=== PATIENT | female | born 1955 | race Caucasian/White ===

== ENCOUNTER 2017-09-29 16:58 | Observation (INO) | payer MEDICARE ==
[~2017-09-29] VITALS: Ht 157.5 cm; Wt 80.3 kg
[~2017-09-29 16:58] MED LIST: ALIGN4 MG PO; ARAVA20 MG PO; ASPIR 8181 MG PO; CEFDINIR300 MG PO; CEFTIN500 MG PO; DOXYCYCLINE HY100 MG PO; FLUCONAZOLE100 MG PO; HYDROCODONE AP PO; IBUPROFEN400 MG PO; MEDROL4 MG/DOSE- PO; NORCO 7.5-3251 EACH PO; ONDANSETRON ODT8 MG PO; PANTOPRAZOLE SO40 MG PO; PLAQUENIL200 MG PO; PROTONIX40 MG/ML PO; TAMIFLU75 MG PO; ULTRAM 50MG50 MG PO; ULTRAM50 MG PO; XANAX0.5 MG PO; XIIDRA OU; Z.0.ZIPSOR25 MG PO; [UNRECOGNIZED DRUG - OTHER] OU; movantik PO
[2017-09-29 17:58] LABS: BASOPHILS % 0.4 % (0.0-1.0); EOSINOPHILS # (AUTO) 0.4 (0.0-0.4); EOSINOPHILS % 4.9 % (0.0-6.0); HEMATOCRIT 38.5 % (34.2-44.1); HEMOGLOBIN 12.9 g/dL (12.0-16.0); LYMPHOCYTES # (AUTO) 3.5 (1.0-3.2); LYMPHOCYTES % 38.9 % (18.0-39.1); MEAN CORPUSCULAR HEMOGLOBIN 29.5 pg (28-32); MEAN CORPUSCULAR HGB CONC 33.5 g/dL (31-35); MEAN CORPUSCULAR VOLUME 87.9 fL (81-99); MONOCYTES # (AUTO) 0.7 (0.2-0.8); MONOCYTES % 7.6 % (4.4-11.3); NEUTROPHILS # (AUTO) 4.3 (2.1-6.9); PLATELET COUNT 301 x10e3/uL (140-360); RED BLOOD COUNT 4.38 x10e6/uL (3.6-5.1); RED CELL DISTRIBUTION WIDTH 12.4 % (11.7-14.4)
--- NOTE | 2017-09-29 18:02 | Diagnostic Imaging Report ---
EXAMINATION: Chest, CHEST 2 VIEWS INDICATION: Chest pain COMPARISON: Portable chest 07/12/2016 FINDINGS: LINES: None. Heart: Normal cardiac silhouette. Vascular: The pulmonary vasculature is within normal limits. Mediastinum: No mediastinal, hilar, or axillary mass or lymphadenopathy. Lungs: No parenchymal mass. Airspace opacity in the left lung base. Pleura: No pleural effusion. No pneumothorax. Bones: No acute osseous abnormality. Degenerative changes of the thoracic spine. Anterior cervical spine fusion hardware. Soft tissues: Normal. Impression: Airspace opacity in the left lung base may represent a developing pneumonia. Signed by: Dr. Stoney Asif M.D. on 09/29/2017 5:58 PM
[2017-09-29 18:16] LABS: ANION GAP 11.4 mmol/L (8-16); BLOOD UREA NITROGEN 8 mg/dL (7-26); BUN/CREATININE RATIO 10 (6-25); CARBON DIOXIDE 27 mmol/L (22-29); CHLORIDE 105 mmol/L (98-107); CREATINE KINASE 130 IU/L (29-168); CREATININE, SERUM 0.79 mg/dL (0.57-1.11); EST GLOMERULAR FILTRATION RATE > 60 ML/MIN (60-); GLUCOSE 113 mg/dL (74-118); POTASSIUM 3.4 mmol/L (3.5-5.1); SODIUM 140 mmol/L (136-145)
[2017-09-29 18:23] LABS: TROPONIN I 0.002 ng/mL (0-0.300)
[2017-09-29] MEDS ORDERED: AZITHROMYCIN 500MG/SOD CHL 0.9% 250ML BAG IV SCH (18:30)
[2017-09-29] MEDS ORDERED: SODIUM CHLORIDE 0.9% 1000ML 1,000 ML ONE (18:44)
[2017-09-29] MEDS: WATER STERILE 10 ML VIAL INJ SCH (19:09)
[2017-09-29] MEDS: AZITHROMYCIN 500MG/NS 250 ML 250 ML IV SCH (19:09)
[2017-09-29] MEDS: SODIUM CHLORIDE 0.9% 1000ML 1,000 ML IV SCH (19:09)
[2017-09-29] MEDS: CEFTRIAXONE SOD 1 GM VIAL IV SCH (19:09)
[2017-09-29] MEDS: LEVALBUTEROL HCL SOLN NEBU 0.63 MG/3 ML NEB INH PRN (19:30)
[2017-09-29] MEDS: IPRATROPIUM BROMIDE 0.02% 2.5 ML NEB NEB SCH (19:30)
[2017-09-29] MEDS ORDERED: LEVALBUTEROL HCL SOLN NEBU 0.63 MG/3 ML NEB ONE (19:47)
[2017-09-29] MEDS ORDERED: ONDANSETRON HCL INJ 2 MG/ML VIAL ONE (20:16)
[2017-09-29] MEDS: ALBUTEROL SULF 0.083% NEB SOLN 3 ML NEB NEB SCH ×2 (20:32→23:00)
[2017-09-29 22:00] VITALS: BP 137/70
[2017-09-29 22:34] VITALS: BP 137/74
[2017-09-30] VITALS: BP 120/59
[2017-09-30] MEDS: LEVALBUTEROL HCL SOLN NEBU 0.63 MG/3 ML NEB INH PRN ×4 (01:30→21:00)
[2017-09-30] MEDS: IPRATROPIUM BROMIDE 0.02% 2.5 ML NEB NEB SCH ×4 (01:30→21:00)
[2017-09-30] MEDS: MORPHINE SULFATE 2 MG/ML SYR IV PRN ×4 (02:30→21:30)
[2017-09-30] MEDS: ALBUTEROL SULF 0.083% NEB SOLN 3 ML NEB NEB SCH ×3 (03:00→07:00)
[2017-09-30 04:00] VITALS: BP 148/70
[2017-09-30] MEDS: SODIUM CHLORIDE 0.9% 1000ML 1,000 ML IV SCH ×2 (06:15→15:19)
[2017-09-30] MEDS ORDERED: ALPRAZOLAM 0.5 MG TAB PO PRN (07:00)
[2017-09-30] MEDS ORDERED: ONDANSETRON 8 MG PO PRN (07:00)
[2017-09-30] MEDS ORDERED: TRAMADOL HCL 50 MG TAB PO PRN (07:00)
[2017-09-30] MEDS ORDERED: IBUPROFEN 400 MG TAB PO PRN (07:00)
--- NOTE | 2017-09-30 07:13 | History and Physical ---
A 62-year-old lady comes in with cough and congestion. HISTORY OF PRESENT ILLNESS: Ms. Lucina Barrett is a 62-year-old lady with a history of being seen by her primary care physician about 2 days ago, Dr. Mooney. The patient was noted to have coughing and congestion, and was given antibiotics and albuterol. The patient has been sent home with cough medication. Did not get her cough medication because it was not available in stock. The patient yesterday came in with cough and congestion continuous and was short of breath. Chest x-ray showed pneumonia. The patient was admitted to the hospital for cough, congestion and pneumonia. PAST MEDICAL HISTORY: History of reflux disorder, history of anxiety, history of hypertension. SURGICAL HISTORY: Hysterectomy, cholecystectomy and laminectomy. The patient also had a fractured right hand, rotator cuff tear, which was repaired. The patient also has a history of Ramsay's esophagus as per endoscopy, and history of asthma too. SOCIAL HISTORY: No ETOH. No drug abuse. REVIEW OF SYSTEMS: Negative for chest pain. Positive for shortness of breath. No nausea, vomiting or diarrhea. No constipation or rectal bleeding. Positive for back pain. Positive for no diplopia. No blurry vision. Positive for headache. No coughing. PHYSICAL EXAMINATION GENERAL: The patient is alert and oriented times 3. Sitting up and coughing as she speaks. VITALS: Temperature 98.6, pulse 95, respiratory rate 20, blood pressure 148/70. She is satting about 94% on 2 L of oxygen. HEENT: Normocephalic and atraumatic. CV: Regular rate and rhythm. LUNGS: Diffuse air entry bilaterally. Positive for bilateral rhonchi and some inspiratory wheezes too. ABDOMEN: Soft and nontender. EXTREMITIES: No clubbing. No cyanosis. No edema. BACK: Tender in the L4-L5 area. IMAGING STUDIES: Chest x-ray showed airspace opacity in the left lung base. MICROBIOLOGY: Pending blood cultures. LAB VALUES: Influenza was negative. Hematology: White count is 8.9, hemoglobin 12.9, hematocrit 38.5. Chemistry: Sodium 140, potassium 3.4. As mentioned, influenza was negative. ASSESSMENT 1. Developing pneumonia. 2. Chronic cough and congestion. 3. Bronchospasms. 4. History of asthma. 5. History of low back pain. PLAN: Continue on the antibiotics. Currently, the patient is on Xopenex every 6 hours, azithromycin and Rocephin. The patient will continue on her home medications also. Do a chest x-ray in the morning. Further recommendations per clinical course. Will also start the patient on some . Job#: [id number]
[2017-09-30 07:42] VITALS: BP 144/63
[2017-09-30] MEDS ORDERED: IBUPROFEN 600 MG TAB PO PRN (07:45)
[2017-09-30] MEDS ORDERED: ONDANSETRON HCL 4 MG ORAL DISINTEGRATING TAB PO PRN (07:45)
[2017-09-30] MEDS: POLYETHYLENE GLYCOL 3350 17 GM PACK PO SCH ×2 (08:41→16:26)
[2017-09-30] MEDS: XIIDRA OP SCH ×2 (08:41→16:26)
[2017-09-30] MEDS: LACTOBACILLUS ACIDOPHILUS CAPSULE PO SCH ×2 (08:41→16:26)
[2017-09-30] MEDS: PANTOPRAZOLE SOD 40 MG TABEC PO SCH (08:41)
[2017-09-30] MEDS: GUAIFENESIN/CODEINE 10 ML CUP PO PRN ×2 (08:43→15:27)
[2017-09-30] MEDS ORDERED: XIIDRA OU SCH (09:00)
[2017-09-30 11:29] VITALS: BP 119/61
[2017-09-30 15:21] VITALS: BP 123/71
[2017-09-30] MEDS: CEFTRIAXONE SOD 1 GM VIAL IV SCH (19:00)
[2017-09-30] MEDS: WATER STERILE 10 ML VIAL INJ SCH (19:00)
[2017-09-30] MEDS: AZITHROMYCIN 500MG/NS 250 ML 250 ML IV SCH (19:00)
[2017-09-30 20:00] VITALS: BP 123/58
[2017-10-01] VITALS: BP 126/62
[2017-10-01] MEDS: LEVALBUTEROL HCL SOLN NEBU 0.63 MG/3 ML NEB INH PRN ×4 (02:00→20:25)
[2017-10-01] MEDS: IPRATROPIUM BROMIDE 0.02% 2.5 ML NEB NEB SCH ×4 (02:00→20:25)
[2017-10-01] MEDS: MORPHINE SULFATE 2 MG/ML SYR IV PRN ×4 (03:24→21:29)
[2017-10-01 04:00] VITALS: BP 131/61
[2017-10-01 06:03] LABS: BASOPHILS % 0.4 % (0.0-1.0); EOSINOPHILS # (AUTO) 0.4 (0.0-0.4); HEMATOCRIT 35.1 % (34.2-44.1); HEMOGLOBIN 11.7 g/dL (12.0-16.0); LYMPHOCYTES % 42.8 % (18.0-39.1); MEAN CORPUSCULAR HEMOGLOBIN 29.5 pg (28-32); MEAN CORPUSCULAR HGB CONC 33.3 g/dL (31-35); MEAN CORPUSCULAR VOLUME 88.6 fL (81-99); MONOCYTES # (AUTO) 0.6 (0.2-0.8); MONOCYTES % 9.1 % (4.4-11.3); NEUTROPHILS % 42.4 % (38.7-80.0); PLATELET COUNT 248 x10e3/uL (140-360); RED BLOOD COUNT 3.96 x10e6/uL (3.6-5.1); RED CELL DISTRIBUTION WIDTH 12.5 % (11.7-14.4)
[2017-10-01 06:33] LABS: ANION GAP 8.1 mmol/L (8-16); BLOOD UREA NITROGEN 8 mg/dL (7-26); BUN/CREATININE RATIO 10 (6-25); CARBON DIOXIDE 27 mmol/L (22-29); CHLORIDE 110 mmol/L (98-107); CREATININE, SERUM 0.79 mg/dL (0.57-1.11); EST GLOMERULAR FILTRATION RATE > 60 ML/MIN (60-); GLUCOSE 101 mg/dL (74-118); POTASSIUM 4.1 mmol/L (3.5-5.1); SODIUM 141 mmol/L (136-145)
--- NOTE | 2017-10-01 07:03 | Diagnostic Imaging Report ---
EXAM: CHEST 2 VIEWS, PA and lateral DATE: 10/01/2017 6:50 AM Time stamp on exam: 0602 hours INDICATION: Shortness of breath, cough, congestion COMPARISON: PA and lateral view of the chest September 29, 2017 FINDINGS: LINES/TUBES: None LUNGS: Stable bibasilar atelectasis and bronchial thickening. PLEURA: No effusions or pneumothorax. HEART AND MEDIASTINUM: Normal size and contour. BONES AND SOFT TISSUES: No acute findings. Lower cervical spine surgical hardware. IMPRESSION: No interval change. Signed by: Dr. Yulia Fitzgerald M.D. on 10/01/2017 7:00 AM
[2017-10-01] MEDS: LACTOBACILLUS ACIDOPHILUS CAPSULE PO SCH ×2 (08:10→18:00)
[2017-10-01] MEDS: PANTOPRAZOLE SOD 40 MG TABEC PO SCH (08:10)
[2017-10-01 08:19] VITALS: BP 134/68
[2017-10-01] MEDS: XIIDRA OP SCH ×2 (08:44→17:00)
[2017-10-01] MEDS: POLYETHYLENE GLYCOL 3350 17 GM PACK PO SCH ×2 (09:00→16:37)
[2017-10-01 12:17] VITALS: BP 137/65
[2017-10-01] MEDS: GUAIFENESIN/CODEINE 10 ML CUP PO PRN ×2 (14:44→21:29)
[2017-10-01] MEDS: SODIUM CHLORIDE 0.9% 1000ML 1,000 ML IV SCH (15:44)
[2017-10-01 16:50] VITALS: BP 171/79
[2017-10-01] MEDS: CEFTRIAXONE SOD 1 GM VIAL IV SCH (18:00)
[2017-10-01] MEDS: WATER STERILE 10 ML VIAL INJ SCH (18:00)
[2017-10-01] MEDS ORDERED: LACTULOSE SYRUP 20 GM/30 ML UDC PO PRN (18:15)
[2017-10-01] MEDS: AZITHROMYCIN 500MG/NS 250 ML 250 ML IV SCH (18:30)
[2017-10-01 19:47] VITALS: BP 140/77
[2017-10-01] MEDS: ONDANSETRON HCL 4 MG ORAL DISINTEGRATING TAB PO PRN (21:29)
[2017-10-02] MEDS: IPRATROPIUM BROMIDE 0.02% 2.5 ML NEB NEB SCH (03:50)
[2017-10-02] MEDS: MORPHINE SULFATE 2 MG/ML SYR IV PRN (04:45)
[2017-10-02] MEDS: ONDANSETRON HCL 4 MG ORAL DISINTEGRATING TAB PO PRN (04:45)
[2017-10-02 04:48] VITALS: BP 126/70
[2017-10-02 08:30] VITALS: BP 135/88
[2017-10-02] MEDS: XIIDRA OP SCH (09:00)
[2017-10-02] MEDS: LACTOBACILLUS ACIDOPHILUS CAPSULE PO SCH (09:04)
[2017-10-02] MEDS: PANTOPRAZOLE SOD 40 MG TABEC PO SCH (09:04)
== END 2017-10-02 11:30 | disposition home or self-care (01) ==
LOC: ER 16:58 → ERHOLD 18:43 → IMCU 21:16
PROVIDERS: ADMIT Family Medicine; ATTEND Family Medicine
DX: J15.9 Unspecified bacterial pneumonia (principal); J98.01 Acute bronchospasm; F41.9 Anxiety disorder, unspecified
CPT/HCPCS: 36415 ×2; 71020 ×2; 80048 ×2; 82550; 82553; 84484; 85025 ×2; 87040; 87070; 87205; 87400; 96367; 96376; 99284; G0378 ×4; J0456 ×3; J0696 ×3; J2270 ×3; J2405; J7030 ×3

== ENCOUNTER → 2017-11-05 | Outpatient (CLI) | payer MEDICARE ==
--- NOTE | 2017-11-05 15:45 | Diagnostic Imaging Report ---
PROCEDURE: CT CHEST WITHOUT CONTRAST CT scan of the chest WITHOUT intravenous contrast, using standard protocol. TECHNIQUE: The chest was scanned utilizing a multidetector helical scanner from the apex to the level of the adrenal glands. No IV contrast was administered per physician request. Coronal and sagittal multiplanar reformations were obtained. Total DLP: 453.86 mGy-cm COMPARISON: Chest CT 11/05/2017. INDICATIONS: COUGH, CHEST PAIN, SHORTNESS OF BREATH FINDINGS: Lines/tubes: None. Lungs and Airways: The lungs are well inflated. Stable calcified granuloma in the posterior right lower lobe (series 3 image 81). Mild mosaic attenuation in the lung bases, which was not previously visualized. Mild atelectasis in the lung bases with mild bronchiectasis in the right middle and lingula Pleura: The pleural spaces are clear. Heart and mediastinum: The thyroid gland is normal. No significant mediastinal, hilar or axillary lymphadenopathy is seen. The heart and pericardium are within normal limits. Mild atherosclerotic calcifications in the coronary arteries. Soft tissues: Normal. Abdomen: Limited views of the upper abdomen show no abnormality within the visualized spleen, pancreas, or kidneys. The adrenal glands are normal. Diffuse hepatic steatosis. Bones: The visualized bony thorax is within normal limits. Anterior cervical fusion. IMPRESSION: Mild mosaic attenuation lung bases, likely air trapping related to small airway disease. Dictated by: Genaro Riddle M.D. on 11/05/2017 at 15:54 Electronically approved by: Genaro Riddle M.D. on 11/05/2017 at 15:54
== END ==
LOC: CT 07:47
PROVIDERS: ATTEND Internal Medicine Pulmonary Disease
DX: R05 Cough (principal)
CPT/HCPCS: 71250

== ENCOUNTER → 2017-11-25 | Outpatient (CLI) | payer MEDICARE ==
[~2017-11-25] MED LIST changes: +IOPAMIDOL 370 MG/ML 200 ML INFUS..BTL INJ ONE; +SODIUM CHLORIDE 0.9% 50ML 50 ML ONE
[2017-11-25 10:55] LABS: BLOOD UREA NITROGEN 16 mg/dL (7-26); BUN/CREATININE RATIO 20 (6-25); EST GLOMERULAR FILTRATION RATE > 60 ML/MIN (60-)
--- NOTE | 2017-11-25 11:59 | Diagnostic Imaging Report ---
PROCEDURE:CT ABDOMEN W COMPARISON:CT chest 11/05/17, CT abdomen/pelvis 05/31/17. INDICATIONS:ACUTE GASTRITIS WITHOUT BLEEDING TECHNIQUE: Multidetector CT scanning of the abdomen was performed after the administration of 100 cc of nonionic contrast. Coronal and sagittal reformations were obtained. Routine protocol performed. FINDINGS: Lung bases: Punctate subpleural nodule in the posterior right lower lobe (image 8) is stable. Visualized portion of the mediastinum is normal. Liver: Diffusely fatty replaced. No evidence of mass. Biliary: The gallbladder is absent. No biliary ductal dilatation. Spleen: Normal size and attenuation without mass. Pancreas: Diffusely fatty replaced. There is a single cyst in the body of the pancreas measuring 10 x 10 x 20 mm (AP, TRV, CC). Previously, this measured approximately 10 x 11 x 20 mm. No pancreas duct dilatation. A punctate calcification in the pancreas tail is stable. There are no new pancreas lesions. Adrenal Glands: No mass. Kidneys: Symmetric enhancement. No mass or hydronephrosis. Gastrointestinal: The stomach is normal in morphology with normal mural enhancement. No mural thickening. Visualized portions of the small bowel and large bowel are normal. Vasculature: Aorta is normal in diameter. Hepatic and portal veins are widely patent. IVC is normal. Peritoneum/Retroperitoneum: No free fluid, fluid collection, or mass. Musculoskeletal: Mild degenerative changes consistent with age. No focal osseous lesions. Soft tissues are unremarkable. CONCLUSION: 1. Stable pancreas cyst or side branch IPMN. Continued annual surveillance is recommended. 2. Stable hepatic steatosis. 3. No abnormalities of the stomach or small bowel on this exam. 4. Cholecystectomy. Normal biliary tree. 5. Stable pulmonary nodule. Dictated by: Jimbo Mary M.D. on 11/25/2017 at 12:09 Electronically approved by: Jimbo Mary M.D. on 11/25/2017 at 12:09
== END ==
LOC: CT 09:58
PROVIDERS: ATTEND Internal Medicine Gastroenterology
DX: K29.00 Acute gastritis without bleeding (principal)
CPT/HCPCS: 36415; 74160; 77067; 82565; 84520; Q9967

== ENCOUNTER 2018-12-10 14:33 | Inpatient (IN) | payer MEDICARE ==
[~2018-12-10] VITALS: Ht 157.5 cm; Wt 77.1 kg
[~2018-12-10 14:33] MED LIST changes: -IOPAMIDOL 370 MG/ML 200 ML INFUS..BTL INJ ONE; -SODIUM CHLORIDE 0.9% 50ML 50 ML ONE
--- OUTSIDE RECORDS SUMMARY | 2018-12-10 14:38 | XMS REPORT ---
Author Author [facility] Address Unknown Phone Unavailable Care Team Providers Care Horse Race Timer Name Role Phone HIPOLITO POOLE Unavailable Unavailable HAI JONES Unavailable Unavailable EDDY SAUNDERS Unavailable Unavailable HAI BOUDREAUX Unavailable Unavailable Pamella HERNANDES Unavailable Unavailable PATTANAIK, TASIA Unavailable Unavailable Problems This patient has no known problems. Allergies, Adverse Reactions, Alerts This patient has no known allergies or adverse reactions. Medications This patient has no known medications. Results Test Description Test Time Test Comments Text Results Atomic Results Result Comments MR, ABDOMEN, WITH 2018-04-21 18:38:00 Referring: Dr. Sapna Hampton FINAL REPORT MRI of the abdomen with and without contrast Reason for study: Abnormal liver enzymes Comparison: CT of the abdomen and pelvis, 11/29/2001 Technique: Multisequence, multiplanar MRI of the abdomen was performed before and after intravenous gadolinium contrast injection. Discussion: The liver is fatty infiltrated. A T2 bright mass is identified in the posterior right liver dome measuring 7 mm. Following contrast injection, there is some peripheral nodular enhancement. On delayed imaging, slightly more enhancement is seen although complete fill-in is not identified. Most likely, this represents its hemangioma given its T2 hyperintensity. No cirrhosis is identified. The portal venous system and hepatic veins are patent and of normal caliber. There is no bile duct dilatation. The gallbladder is absent. The spleen, adrenals, and kidneys are unremarkable. There is no hydronephrosis. A cystic lesion is identified in the pancreatic body/tail junction measuring 1.2 cm. Following contrast injection, no enhancement or complexity is identified. A similar finding is identified in the pancreatic neck which is smaller. The pancreatic duct is not dilated. There is no bowel obstruction. No lymphadenopathy or ascites is seen. The imaged lung bases are grossly unremarkable by MRI. IMPRESSION: 1. Fatty infiltration of the liver. No cirrhosis or suspicious liver mass. 2. Subcentimeter mass in the liver dome which probably represents a hemangioma. However, this is not imaged on the previous examination and short- term follow-up is suggested, given underlying liver disease. 3. 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 Follow-up is suggested for these lesions. Signed: Corby Marr MDReport Verified Date/Time: 04/21/2018 18:38:48 Reading Location: [place] [id number] [facility] Consult Reading Room -CREATININE 2018-04-21 13:37:00 POC-CREATININE (BEAKER) (test abdr=3728) 0.7 mg/dL 0.6-1.3 TESTED AT [facility] [address] [facility] [address] POC-EGFR (BEAKER) (test shja=1098) 84 mL/min/1.73M2 ANTI-NUCLEAR ANTIBODY (DOLORES)2018-04-07 10:55:00* Test Item Value Reference Range Comments ANTI-NUCLEAR ANTIBODY (DOLORES) (BEAKER) (test xlvy=120) Positive Negative DOLORES TITER AND [id number] 10:55:00* Test Item Value Reference Range Comments DOLORES TITER (BEAKER) (test hbtg=5789) :160 DOLORES PATTERN (BEAKER) (test dalx=7173) Nucleolar HEPATITIS A ANTIBODY, [id number] 15:48:00* Test Item Value Reference Range Comments HEPATITIS A IGM ANTIBODY (BEAKER) (test ttko=184) Nonreactive Nonreactive HEPATITIS B CORE ANTIBODY, [id number] 15:48:00* Test Item Value Reference Range Comments HEPATITIS B CORE TOTAL ANTIBODY (BEAKER) (test cgwl=433) Nonreactive Nonreactive HEPATITIS A ANTIBODY, [id number] 15:48:00* Test Item Value Reference Range Comments HEPATITIS A IGG ANTIBODY (BEAKER) (test dkgf=7621) Nonreactive Nonreactive HEPATITIS B SURFACE [id number] 14:20:00* Test Item Value Reference Range Comments HEPATITIS B SURFACE ANTIBODY (BEAKER) (test txse=810) < mIU/mL <8.0 HEPATITIS B SURFACE [id number] 14:10:00* Test Item Value Reference Range Comments HEPATITIS B SURFACE ANTIGEN (2) (BEAKER) (test vlls=1341) Nonreactive Nonreactive HEPATITIS C [id number] 14:10:00* Test Item Value Reference Range Comments HEPATITIS C ANTIBODY (BEAKER) (test iwag=235) Nonreactive Nonreactive [id number] 13:49:00* Test Item Value Reference Range Comments FERRITIN (BEAKER) (test jupa=334) 166 ng/mL 5-275 ALPHA FETOPROTEIN (AFP), TUMOR [id number] 13:49:00* Test Item Value Reference Range Comments ALPHA-FETOPROTEIN (BEAKER) (test xoua=9959) 3.0 ng/mL <10.0 IRON, TIBC, % SAT. (WITHOUT FERRITIN)2018-04-03 13:45:00* Test Item Value Reference Range Comments IRON (BEAKER) (test lipz=180) 124 ug/dL 40-160 TOTAL IRON BINDING CAPACITY (BEAKER) (test ectf=876) 355 ug/dL 250-450 IRON % SATURATION (2) (BEAKER) (test gmws=8897) 35 % 20-55 [id number]-4-[id number] 13:32:00* Test Item Value Reference Range Comments ALPHA-1 ANTITRYPSIN (BEAKER) (test eebr=842) 156.90 mg/dL 90.00-200.00 COMPREHENSIVE METABOLIC [id number] 13:31:00* Test Item Value Reference Range Comments TOTAL PROTEIN (BEAKER) (test klnr=326) 7.8 gm/dL 6.0-8.3 ALBUMIN (BEAKER) (test ldpa=1292) 4.5 g/dL 3.5-5.0 ALKALINE PHOSPHATASE (BEAKER) (test etut=723) 92 U/L 40-150 BILIRUBIN TOTAL (BEAKER) (test exzg=168) 0.8 mg/dL 0.2-1.2 SODIUM (BEAKER) (test tgky=527) 142 meq/L 136-145 POTASSIUM (BEAKER) (test btdw=621) 3.7 meq/L 3.5-5.1 CHLORIDE (BEAKER) (test lhzw=141) 106 meq/L 98-107 CO2 (BEAKER) (test nsad=073) 24 meq/L 22-29 BLOOD UREA NITROGEN (BEAKER) (test tiyn=866) 14 mg/dL 7-21 CREATININE (BEAKER) (test brsf=711) 0.84 mg/dL 0.57-1.25 GLUCOSE RANDOM (BEAKER) (test vtla=777) 118 mg/dL 70-105 CALCIUM (BEAKER) (test srsc=651) 9.9 mg/dL 8.4-10.2 AST (SGOT) (BEAKER) (test ojns=911) 23 U/L 5-34 ALT (SGPT) (BEAKER) (test wxjb=440) 44 U/L 6-55 EGFR (BEAKER) (test jxdt=5715) 68 mL/min/1.73 sq m ESTIMATED GFR IS NOT ACCURATE CREATININE CLEARANCE IN PREDICTING GLOMERULAR FILTRATION RATE. ESTIMATED GFR IS NOT APPLICABLE FOR DIALYSIS PATIENTS. BILIRUBIN, [id number] 13:31:00* Test Item Value Reference Range Comments BILIRUBIN DIRECT (BEAKER) (test xdgv=429) 0.3 mg/dL 0.1-0.5 PROTHROMBIN TIME/[id number] 13:23:00* Test Item Value Reference Range Comments PROTIME (BEAKER) (test lbfl=857) 13.1 seconds 11.7-14.7 INR (BEAKER) (test ghku=288) 1.0 <=5.9 RECOMMENDED COUMADIN/WARFARIN INR THERAPY RANGESSTANDARD DOSE: 2.0 - 3.0 Inclu naldo: PROPHYLAXIS for venous thrombosis, systemic embolization; TREATMENT for alla ous thrombosis and/or pulmonary embolus.HIGH RISK: Target INR is 2.5-3.5 for pat ients with mechanical heart valves.CBC W/PLT COUNT & AUTO [id number] 13:10:00* Test Item Value Reference Range Comments WHITE BLOOD CELL COUNT (BEAKER) (test micw=180) 7.2 K/ L 3.5-10.5 RED BLOOD CELL COUNT (BEAKER) (test kwxa=759) 4.58 M/ L 3.93-5.22 HEMOGLOBIN (BEAKER) (test hbdd=064) 13.8 GM/DL 11.2-15.7 HEMATOCRIT (BEAKER) (test unif=820) 41.7 % 34.1-44.9 MEAN CORPUSCULAR VOLUME (BEAKER) (test wirj=820) 91.0 fL 79.4-94.8 MEAN CORPUSCULAR HEMOGLOBIN (BEAKER) (test ejtg=776) 30.1 pg 25.6-32.2 MEAN CORPUSCULAR HEMOGLOBIN CONC (BEAKER) (test kedn=277) 33.1 GM/DL 32.2-35.5 RED CELL DISTRIBUTION WIDTH (BEAKER) (test ayps=761) 12.4 % 11.7-14.4 PLATELET COUNT (BEAKER) (test vkhg=861) 268 K/CU MM 150-450 MEAN PLATELET VOLUME (BEAKER) (test gpom=449) 9.8 fL 9.4-12.3 NUCLEATED RED BLOOD CELLS (BEAKER) (test dtkn=664) 0 /100 WBC 0-0 NEUTROPHILS RELATIVE PERCENT (BEAKER) (test qxap=992) 58 % LYMPHOCYTES RELATIVE PERCENT (BEAKER) (test ozdi=523) 32 % MONOCYTES RELATIVE PERCENT (BEAKER) (test kfgy=304) 7 % EOSINOPHILS RELATIVE PERCENT (BEAKER) (test xbey=171) 2 % BASOPHILS RELATIVE PERCENT (BEAKER) (test tslf=701) 0 % NEUTROPHILS ABSOLUTE COUNT (BEAKER) (test wuha=399) 4.19 K/ L 1.56-6.13 LYMPHOCYTES ABSOLUTE COUNT (BEAKER) (test nxyp=033) 2.31 K/ L 1.18-3.74 MONOCYTES ABSOLUTE COUNT (BEAKER) (test jmty=825) 0.50 K/ L 0.24-0.36 EOSINOPHILS ABSOLUTE COUNT (BEAKER) (test ndmh=932) 0.14 K/ L 0.04-0.36 BASOPHILS ABSOLUTE COUNT (BEAKER) (test troq=948) 0.02 K/ L 0.01-0.08 IMMATURE GRANULOCYTES-RELATIVE PERCENT (BEAKER) (test fwal=6074) 0 % 0-1 TISSUE [id number] 11:54:00Surgical Pathology Report Case: [id number] Authorizing Provider: Antonio Jones DPM Collected: 03/21/2018 1033 Ordering Location: [facility] Received: 03/21/2018 1134 SERVICES Pathologist: Rocehlle Vela MD Specimen: Foot, Right, soft tissue mass from right great toe SKIN, RIGHT GREAT TOE, EXCISION: - DIGITAL MUCOUS CYST - NEGATIVE FOR MALIGNANCY Signing Pathologist Direct Phone Line: [phone] signed by Rochelle Vela MD on 03/26/2018 at 11:54 [id number] tissue mass right great toeSoft tissue mass right great toeReceived in formalin labeled "foot, right", description "soft tissue mass right great toe" is a 2.5 x 1.0 cm bob ellipse of skin excised to a depth of 0.3 cm. The skin surface exhibits a 0.6 x 0.5 cm well-circumscribed light bob papule. The specimen margins are inked and the specimen is serially sectioned to reveal a 0.7 cm in greatest dimension unilocular subcutaneous cyst containing yellow-bob gelatinous material. The specimen is entirely submitted in cassette A1. DB/plPERFORMEDMAMMOGRAM DIGITAL SCR BI [place] [address] Patient Name: AMBROSE CARBALLO MR #: [id number] : 1955 Age/Sex: 62/F Req #: [id number] Adm Physician: Ordered by: TASIA MACK MD Report #: [id number] Location: CT Room/Bed: Procedure: [id number] MG/MAMMOGRAM DIGITAL SCR BI Exam Date: 11/25/17 Exam Time: 1135 REPORT STA TUS: Signed #[id number] - MGSCRNBI #BILATERAL DIGITAL SCREENING MAMMO GRAM WITH CAD: 11/25/2017 CLINICAL: Routine screening. No prior exams we re available for comparison. Current study contains 5 films. There are scat tered fibroglandular elements in both breasts. Current study was also evalua erika with a Computer Aided Detection (CAD) system. There are benign vascular calcifications in both breasts. There also are benign calcifications in the left breast. No significant masses, calcifications, or other findings are se en in either breast. IMPRESSION: BENIGN There is no mammographic eviden ce of malignancy. A 1 year screening mammogram is recommended. The patient w ill be notified by letter of the results. Leonides toth/yani:12/05/2017 16:44:38 Certified Hearing Instrument Dispenser: Jessie SCHNEIDER(Katarzyna)(M), [facility] letter sent: Normal Exam Mamm ogram BI-RADS: 2 Benign Dictated By: LEONIDES SIMMONS DO 43 Transcribed By: YANI on 12/05/171643 COPY TO: TASIA MACK MD CT ABDOMEN W [place] [address] Patient Name: AMBROSE CARBALLO MR #: [id number] : 1955 Age/Sex: 62/F Req #: [id number] Adm Physician: Ordered by: EDDY SAUNDERS MD Report #: [id number] Location: CT Room/Bed: Procedure: [id number] CT/CT ABDOMEN W Exam Date: 11/25 Exam Time: 1115 REPORT STATUS: Signed [place] OCEDURE: CT ABDOMEN W COMPARISON: CT chest 11/05/17, CT abdomen/pelvis 05/31. INDICATIONS: ACUTE GASTRITIS WITHOUT BLEEDING TECHNIQUE: Multidetect or CT scanning of the abdomen was performed after the administration of 100 c c of nonionic contrast. Coronal and sagittal reformations were obtained. Rout ine protocol performed. FINDINGS: Lung bases: Punctate subpleural nodule in the posterior right lower lobe (image 8) is stable. Visualized portion of the mediastinum is normal. Liver: Diffusely fatty replaced. No evidence of mass. Biliary: The gallbladder is absent. No biliary ductal dilatation. Spleen: Normal size and attenuation without mass. Pancreas: Diff usely fatty replaced. There is a single cyst in the body of the pancreas adriana uring 10 x 10 x 20 mm (AP, TRV, CC). Previously, this measured approximately 10 x 11 x 20 mm. No pancreas duct dilatation. A punctate calcification in the pancreas tail is stable. There are no new pancreas lesions. Adrenal Gl ands: No mass. Kidneys: Symmetric enhancement. No mass or hydronephrosis. Gastrointestinal: The stomach is normal in morphology with normal mural enhancement. No mural thickening. Visualized portions of the small bowel and large bowel are normal. Vasculature: Aorta is normal in diameter. Hepatic and portal veins are widely patent. IVC is normal. Peritoneum/Retrope ritoneum: No free fluid, fluid collection, or mass. Musculoskeletal: Mild degenerative changes consistent with age. No focal osseous lesions. So ft tissues are unremarkable. CONCLUSION: 1. Stable pancreas cyst or side branch IPMN. Continued annual surveillance is recommended. 2. Stable hepatic steatosis. 3. No abnormalities of the stomach or small b owel on this exam. 4. Cholecystectomy. Normal biliary tree. 5. St able pulmonary nodule. Dictated by: Zachary Harley M.D. on 11/25/2017 a t 12:09 Electronically approved by: Zachary Harley M.D. on 11/25/2017 a t 12:09 Dictated By: ZACHARY HARLEY MD Electronically Sign ed By: ZACHARY HARLEY MD on 11/25/17 1209 Transcribed By: KOKO on 11/25/17 1209 COPY TO: EDDY SAUNDERS MD CT CHEST WO [place] [address] Patient Name: AMBROSE CARBALLO MR #: [id number] : 1955 Age/Sex: 62/F Req #: [id number] Adm Physician: Ordered by: HAI BOUDREAUX MD Report #: [id number] Location: CT Room/Bed: Procedure: [id number] CT/CT CHEST WO Exam Date: Exam Time: 0800 REPORT STATUS: Signed PRO CEDURE: CT CHEST WITHOUT CONTRAST CT scan of the chest WITHOUT intravenous con trast, using standard protocol. TECHNIQUE: The chest was scanned util izing a multidetector helical scanner from the apex to the level of the adren al glands. No IV contrast was administered per physician request. Coronal a nd sagittal multiplanar reformations were obtained. Total DLP: 453.86 m Gy-cm COMPARISON: Chest CT 11/05/2017. INDICATIONS: COUGH, CHEST PA IN, SHORTNESS OF BREATH FINDINGS: Lines/tubes: None. Lungs an d Airways: The lungs are well inflated. Stable calcified granuloma in the posterior right lower lobe (series 3 image 81). Mild mosaic attenuation in the lung bases, which was not previously visualized. Mild atelectasis in the lung bases with mild bronchiectasis in the right middle and lingula P leura: The pleural spaces are clear. Heart and mediastinum: The thyroid g land is normal. No significant mediastinal, hilar or axillary lymphadenopathy is seen. The heart and pericardium are within normal limits. Mild atheroscle rotic calcifications in the coronary arteries. Soft tissues: Normal. Abdomen: Limited views of the upper abdomen show no abnormality within the visualized spleen, pancreas, or kidneys. The adrenal glands are normal. Dif fuse hepatic steatosis. Bones: The visualized bony thorax is within lisa l limits. Anterior cervical fusion. IMPRESSION: Mild mosaic atte nuation lung bases, likely air trapping related to small airway disease. Dictated by: Genaro Donohue M.D. on 11/05/2017 at 15:54 Electronically appro rina by: Genaro Donohue M.D. on 11/05/2017 at 15:54 Dictated By: GENARO DONOHUE MD 1160 Transcribed By: KOKO on 11/05/17 6154 COPY TO: HAI BOUDREAUX MD CHEST 2 VIEWS [facility] [address] [place] [id number] Patient Name: AMBROSE CARBALLO MR #: [id number] : 0 1955 Age/Sex: 62/F Req #: [id number] Adm Physician: FRANCISCO HERNANDES MD Ordered by: FRANCISCO HERNANDES MD Report #: [id number] Locat ion: [facility] Room/Bed: [place] [address] Procedure: [id number] D X/CHEST 2 VIEWS Exam Date: Exam Time: REPORT STATUS: Signed EXAM: CHEST 2 VIEWS, PA and lateral DATE: 10/01/2017 6:50 AM Time stamp on exam: 0602 hours INDICATION: Shortness of breath, cough, kush estion COMPARISON: PA and lateral view of the chest September 29, 2017 FIN DINGS: LINES/TUBES: None LUNGS: Stable bibasilar atelectasis and bronchia l thickening. PLEURA: No effusions or pneumothorax. HEART AND MEDIAST INUM: Normal size and contour. BONES AND SOFT TISSUES: No acute findings. L ower cervical spine surgical hardware. IMPRESSION: No interval change. Signed by: Dr. Louise Fitzgerald M.D. on 10/01/2017 7:00 AM D ictated By: LOUISE FITZGERALD MD Electronically Signed By: LOUISE FITZGERALD MD on 09/13 06/30 07 Transcribed By: [place] on 10/01/17 07 COPY TO: SHON HERNANDES MD CHEST 2 VIEWS [facility] [address] [place] [address] Patient Name: AMBROSE CARBALLO MR #: [id number] : 1955 Age/Sex: 62/F Req #: [id number] Adm Physician: FRANCISCO HERNANDES MD Ordered by: PERRI GUSMAN MD Report #: [id number] Location: [facility] Room/Bed: [place] [address] Procedure: [id number] DX/ CHEST 2 VIEWS Exam Date: 09/29/17 Exam Time: 173 REPORT STATUS: Signed EXAMINATION: Chest, CHEST 2 VIEWS INDICAT ION: Chest pain COMPARISON: Portable chest 07/12/2016 FINDINGS: LINES: None. Heart: Normal cardiac silhouette. Vascular: The pulmonary vasculature is within normal limits. Mediastinum: No mediastin al, hilar, or axillary mass or lymphadenopathy. Lungs: No parenchymal mass. Airspace opacity in the left lung base. Pleura: No pleural effusion. No pneumothorax. Bones: No acute osseous abnormality. Degenerative changes of the thoracic spine. Anterior cervical spine fusion hardware. Soft tissu es: Normal. Impression: Airspace opacity in the left lung base may repr esent a developing pneumonia. Signed by: Dr. Carol Manning M.D. on 7 5:58 PM Dictated By: CAROL MANNING MD 57 Transcribed By: [place] on 09/29/171757 COPY TO: PERRI GUSMAN MD CT ABDOMEN/PELVIS W [place] [address] Patient Name: AMBROSE CARBALLO MR #: [id number] : 1955 Age/Sex: 62/F Req #: [id number] Adm Physician: Ordered by: TASIA MACK MD Report #: [id number] Location: CT Room/Bed: Procedure: [id number] CT/CT ABDOMEN/PELVIS W Exam Date: 05/31/17 Exam Time: 1641 REPORT STATUS: Signed PROCEDURE: CT ABDOMEN AND PELVIS WITH CONTRAST TECHNIQUE: The abdomen and pelvis were scanned utilizing a multidetector helical scanner fr om the diaphragm to the lesser trochanter after the IV administration of 100 cc of Isovue 370 and the oral administration of water. Coronal and sagittal multiplanar reformations were obtained. [facility]LVIS W, 07/12/2016, 13:58. INDICATIONS: RIGHT LOWE R QUAD PAIN FINDINGS: LOWER THORAX: Stable 2 mm nodule in the posterior right lower lobe (series 2 image 9). Lung bases are otherwise clear. HE PATOBILIARY: Unchanged diffuse hepatic steatosis. No focal lesions. No biliar y ductal dilation. Cholecystectomy clips. SPLEEN: No splenomegaly. PANCREAS: Not ductal dilation. Stable 1.1 x 1.0 x 1.9 cm with fluid density hypodense lesion in the proximal pancreatic body (series 2 image 25 and sagittal image 85). No wall thickening or enhancing mural nodules. No other focal lesions. N o peripancreatic inflammatory changes. ADRENALS: No adrenal nodules. KIDNEYS/URETERS: No hydronephrosis, stones, or solid mass lesions. PELVIC ORGA NS/BLADDER: Mild asymmetric bladder wall thickening involving predominantly t he anterior wall (sagittal image 70). No focal lesions. Uterus is absent. No adnexal masses. PERITONEUM / RETROPERITONEUM: No free air or fluid. LYMP H NODES: No lymphadenopathy. VESSELS: Unremarkable. GI TRACT: No bowel d ilation or evidence of obstruction. Appendix is well identified and normal in caliber (coronal image 53). No pericolonic inflammatory changes. BONES AND SOFT TISSUES: No acute bony abnormalities. Degenerative changes in the l ower thoracic and lumbosacral spine. Facet hypertrophy. L4-L5 and L5-S1. Soft tissues grossly unremarkable. IMPRESSION: 1. No acute abdominopelvic abnormalities. Specifically, no acute abnormal findings in the right lower quadrant to explain the patient's pain. 2. Stable 1.9 cm fluid density lesi on in the proximal pancreatic body without suspicious characteristics, likely representing a side branch IPMN. Recommend followup contrast-enhanced MRI ab domen in 12 months to document stability. 3. Diffuse hepatic steatosis. No focal lesions. 4. Stable 2 mm nodule in the right lower lobe. Per Fleischner S ociety 2017 guidelines, if the patient is low risk, no further followup is indicated. Umair Holloway M.D. Dictated by: Umair tate M.D. on 05/31/2017 at 17:31 Electronically approved by: Umair caretr M.D. on 05/31/2017 at 17:31 Dictated By: UMAIR Yin 1731 Transcribed By: KOKO on 05/31/17 1731 COPY TO: TASIA MACK MD
--- OUTSIDE RECORDS SUMMARY | 2018-12-10 14:38 | XMS REPORT | Clinical Summary ---
Author Author KAILASH [facility] Address Unknown Phone Unavailable Care Team Providers Care Drapery Maker Name Role Phone Liban Mooney PCP Allergies Comments Active Allergy Reactions Severity Noted Date Sulfa (Sulfonamide Nausea And 03/12/2018 Antibiotics) Vomiting Medications End Date Status Medication Sig Dispensed Refills Start Date Active ALPRAZolam (XANAX) 0.25 Take 0.25 mg 0 MG tablet by mouth every night as needed for Anxiety. Active hydroCHLOROthiazide Take 12.5 mg 0 (HYDRODIURIL) 12.5 MG by mouth tablet daily. Active HYDROcodone-acetaminophen Take 1 tablet 0 (NORCO 7.5-325) 7.5-325 by mouth mg per tablet every 6 (six) hours as needed for Pain. Active hyoscyamine (LEVSIN/SL) Take 0.125 mg 0 0.125 mg SL tablet by mouth as needed for Cramping. Active pantoprazole (PROTONIX) Take 40 mg by 0 40 MG tablet mouth daily. Active LACTOBACILLUS ACIDOPHILUS Take by 0 (PROBIOTIC ORAL) mouth. Active albuterol HFA (VENTOLIN Inhale 1 puff 0 HFA) 90 mcg/actuation by mouth via inhaler inhaler every 6 (six) hours as needed for Wheezing. Active amoxicillin-clavulanate TK 1 T PO TID 0 (AUGMENTIN) 500-125 mg 8 per tablet Active mupirocin (BACTROBAN) 2 % Apply to 0 ointment affected 8 areas daily Active Problems Problem Noted Date Pancreatic cyst 07/10/2018 Liver mass 07/10/2018 History of melanoma 07/10/2018 Screening for cancer 07/10/2018 Abnormal liver enzymes 04/03/2018 Last Assessment & Plan: Reported history of abnormal liver enzymes for 20 years. Labs on 03/12/18 show mild liver enzyme elevation with AST 23 and ALT 53. We will get a comprehensive workup to check for autoimmune, genetic, and viral etiologies of liver enzyme elevation. She is not taking drugs that would cause LFT elevation. She was advised to avoid all herbal supplements and NSAIDs. Immunity status testing 04/03/2018 Last Assessment & Plan: Serological tests will be completed to determine the presence of immunity to hepatitis A and B. If found susceptible she will be referred to her primary care provider to consider the administration of the appropriate vaccines. Essential hypertension 04/03/2018 Last Assessment & Plan: History of hypertension controlled on hydrochlorothiazide. Management per cardiology. Rheumatoid arthritis involving multiple sites 04/03/2018 Last Assessment & Plan: She was diagnosed with rheumatoid arthritis in 2007. She was unable to tolerate methotrexate on three separate trials due to developing pneumonia 3 weeks after starting the medication. Currently, symptoms are being managed with [place]. She will be following up with [facility] in April 2018. Fatty liver 04/03/2018 Last Assessment & Plan: Her risk factors for fatty liver include obesity, hypertension and elevated cholesterol level seen on labs 03/12/18. We will obtain and MRI. She was counseled to lose 5-10 pounds over the next 6 months by diet and exercise. Discussed reducing intake of carbohydrates and sugars to aid in weight loss. She verbalized understanding. Literature provided. Encounters Care Team Description Date Type Specialty Allie Moseley MD Diller, Karen Cardwell, PA-C Liver mass (Primary Dx); Abnormal liver enzymes; Immunity status testing; Essential hypertension; Rheumatoid arthritis involving multiple sites, unspecified rheumatoid factor presence (HCC); Fatty liver; Pancreatic cyst; History of melanoma; Other abnormal tumor markers ; Screening for cancer 07/10/2018 Office Visit Hepatology Camille Calhoun MA 05/02/2018 Abstract Hepatology Doug Goodwin NP 04/22/2018 Documentation Hepatology Doug Goodwin NP 04/22/2018 Documentation Hepatology Allie Moseley MD Abnormal liver enzymes 04/21/2018 Hospital Radiology Encounter Dayanna Velazquez NP 04/07/2018 Anesthesia Event Antonio Jones DPM DEBRIDEMENT/I&D,WOUND EXTREMITY LOWER 04/07/2018 Surgery Antonio Jones DPM 04/07/2018 Hospital Encounter Allie Moseley MD Abnormal liver enzymes (Primary Dx); Immunity status testing; Essential hypertension; Screening for malignant neoplasm; Rheumatoid arthritis involving multiple sites, unspecified rheumatoid factor presence (HCC); Fatty liver 04/03/2018 Office Visit Hepatology Antonio Jones DPM Resource, [employer] Phone 03/31/2018 Hospital Pre-Admission Testing Encounter Karen Pugh MD 03/21/2018 Anesthesia Event Antonio Jones DPM BIOPSY/EXCISION,SOFT TISSUE EXTREMITY LOWER 03/21/2018 Surgery Antonio Jones DPM 03/21/2018 Hospital Encounter Antonio Jones DPM 03/12/2018 Hospital Pre-Admission Testing Encounter after 12/09/2017 Family History Medical History Relation Name Comments Cancer Father Cancer Maternal Aunt Cancer Maternal Aunt Cancer Mother Cancer Son Melanoma Son Relation Name Status Comments Father Maternal Aunt Maternal Aunt Mother Son Social History Date Tobacco Use Types Packs/Day Years Used Never Smoker Smokeless Tobacco: Never Used Alcohol Use Drinks/Week oz/Week Comments Yes occasional Sex Assigned at Date Recorded Not on file Industry Job Start Date Occupation Not on file Not on file Not on file Travel End Travel History Travel Start No recent travel history available. Last Filed Vital Signs Time Taken Vital Sign Reading 04/07/2018 1:00 PM CDT Blood Pressure 138/75 04/07/2018 1:00 PM CDT Pulse 56 04/07/2018 1:00 PM CDT Temperature 36.1 C (97 F) 04/07/2018 1:00 PM CDT Respiratory Rate 20 04/07/2018 1:00 PM CDT Oxygen Saturation 97% - Inhaled Oxygen - Concentration 07/10/2018 12:45 PM CDT Weight 79.7 kg (175 lb 11.2 oz) 04/07/2018 9:55 AM CDT Height 157.5 cm (5' 2") 07/10/2018 12:45 PM CDT Body Mass Index 32.14 Plan of Treatment Health Maintenance Due Date Last Done Comments INFLUENZA VACCINE 07/14/2018 Implants Device Identifier Shelf Expiration Date Model / Serial / Lot Implanted Type Area Manufactur er 06/20/2018 NC-1001 / / [id number] Tissue Nucell Med W/Matrix Nc-1001 Tissue [employer] - [id number] Graft/Subs Implanted: Qty: 1 on 04/07/2018 by Antonio Tristan DPM 08/31/2022 NO-[id number] / [id number] / [facility] Right: Toe [employer] Implanted: Qty: 1 on 04/07/2018 by Antonio Jones DPM Procedures Comments Procedure Name Priority Date/Time Associated Diagnosis MR ABDOMEN WITH/WITHOUT Routine 04/21/2018 Abnormal liver enzymes IV CONTRAST 1:54 PM CDT POCT-CREATININE Routine 04/21/2018 1:27 PM CDT GRAFT,TISSUE 04/07/2018 Non-healing surgical 11:00 AM CDT wound, initial encounter Special Needs (PULSE LAVAGE, PRIME MATRIX GRAFT SMALL, (CNWE) DEBRIDEMENT/I&D,WOUND 04/07/2018 Non-healing surgical EXTREMITY LOWER 11:00 AM CDT wound, initial encounter Special Needs (PULSE LAVAGE, PRIME MATRIX GRAFT SMALL, (CNWE) CBC W/PLT COUNT & AUTO Routine 04/03/2018 Abnormal liver enzymes DIFFERENTIAL 12:25 PM CDT DOLORES TITER AND PATTERN Routine 04/03/2018 Abnormal liver enzymes 12:25 PM CDT ALPHA FETOPROTEIN (AFP), Routine 04/03/2018 Screening for malignant TUMOR MARKER 12:25 PM CDT neoplasm MITOCHONDRIA M2 ANTIBODY Routine 04/03/2018 Abnormal liver enzymes (IGG) 12:25 PM CDT ACTIN (SMOOTH MUSCLE) Routine 04/03/2018 Abnormal liver enzymes ANTIBODY, IGG 12:25 PM CDT ANTI-NUCLEAR ANTIBODY Routine 04/03/2018 Abnormal liver enzymes (DOLORES) 12:25 PM CDT CERULOPLASMIN Routine 04/03/2018 Abnormal liver enzymes 12:25 PM CDT [id number], Routine 04/03/2018 Abnormal liver enzymes SERUM 12:25 PM CDT FERRITIN Routine 04/03/2018 Abnormal liver enzymes 12:25 PM CDT IRON, TIBC, % SAT. Routine 04/03/2018 Abnormal liver enzymes (WITHOUT FERRITIN) 12:25 PM CDT HEPATITIS C ANTIBODY Routine 04/03/2018 Abnormal liver enzymes 12:25 PM CDT HEPATITIS B CORE Routine 04/03/2018 Abnormal liver enzymes ANTIBODY, TOTAL 12:25 PM CDT HEPATITIS B SURFACE Routine 04/03/2018 Abnormal liver enzymes ANTIBODY 12:25 PM CDT HEPATITIS B SURFACE Routine 04/03/2018 Abnormal liver enzymes ANTIGEN 12:25 PM CDT HEPATITIS A ANTIBODY, IGM Routine 04/03/2018 Abnormal liver enzymes 12:25 PM CDT HEPATITIS A ANTIBODY, IGG Routine 04/03/2018 Abnormal liver enzymes 12:25 PM CDT PROTHROMBIN TIME/INR Routine 04/03/2018 Screening for malignant 12:25 PM CDT neoplasm CBC W/PLT COUNT & AUTO Routine 04/03/2018 Abnormal liver enzymes DIFFERENTIAL 12:25 PM CDT BILIRUBIN, DIRECT Routine 04/03/2018 Abnormal liver enzymes 12:25 PM CDT COMPREHENSIVE METABOLIC Routine 04/03/2018 Abnormal liver enzymes PANEL 12:25 PM CDT TISSUE EXAM AP Routine 03/21/2018 10:33 AM CDT BIOPSY/EXCISION,SOFT 03/21/2018 Soft tissue mass TISSUE EXTREMITY LOWER 9:30 AM CDT after 12/09/2017 Results * MR abdomen with/without IV contrast (04/21/2018 1:54 PM CDT) Narrative Performed At FINAL REPORT [facility] MRI of the abdomen with and without [...] not imaged on the previous examination and short-term follow-up is suggested, given underlying liver disease. 3. 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 Follow-up is suggested for these lesions. Signed: Corby Marr MD Report Verified Date/Time:04/21/2018 18:38:48 Reading Location: [address] Consult Reading Room Procedure Note Interface, External Ris In - 04/21/2018 6:40 PM CDT FINAL REPORT MRI of the abdomen with [...] not imaged on the previous examination and short-term follow-up is suggested, given underlying liver disease. 3. 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 Follow-up is suggested for these lesions. Signed: Corby Marr MD Report Verified Date/Time: 04/21/2018 18:38:48 Reading Location: [facility] [id number] Ortho Consult Reading Room Performing Organization Address [facility] Phone Number GE RIS * POC-Creatinine (04/21/2018 1:27 PM CDT) POC-Creatinine 0.7Comment: TESTED AT [facility] 0.6 - 1.3 mg/dL [address] POC-EGFR 84 mL/min/1.73M2 [facility] Specimen Blood Performing Organization Address [facility] [place] [facility] Centercode Phone Number [address] [address] [facility] * Hepatitis A antibody, IgG (04/03/2018 12:25 PM CDT) Hep A IgG Nonreactive Nonreactive [facility] Specimen Blood Performing Organization Address [facility] [place] [facility] Centercode Phone Number [address] [address] [facility] * Mitochondrial Antibodies, M2 (04/03/2018 12:25 PM CDT) Mitochondria M2 Ab <20.0 See Note: U [facility] Comment: INCORPORATED Reference Range: NEGATIVE:< OR=20.0 EQUIVOCAL: 20.1-24.9 POSITIVE:> OR=25.0 Specimen Blood Narrative Performed At Performing Lab [facility] [address] [place] [address] Oleksandr Dozier MD, PhD, ZENAIDA Performing Organization Address [facility] [place] [facility] Centercode Phone Number [facility], [address] [place], [place] INCORPORATED [place] [address] * Iron, TIBC, % sat. (without ferritin) (04/03/2018 12:25 PM CDT) Iron 124 40 - 160 ug/dL [facility] TIBC 355 250 - 450 ug/dL [facility] Iron % Saturation 35 20 - 55 % [facility] Specimen Blood Performing Organization Address [facility] [place] [facility] Centerconv Phone Number [facility] [address] [place] [address] MEDICAL CENTER * CBC with platelet count + automated diff (04/03/2018 12:25 PM CDT) WBC 7.2 3.5 - 10.5 K/L [facility] RBC 4.58 3.93 - 5.22 M/L [facility] Hemoglobin 13.8 11.2 - 15.7 GM/DL [facility] Hematocrit 41.7 34.1 - 44.9 % [facility] MCV 91.0 79.4 - 94.8 fL [facility] MCH 30.1 25.6 - 32.2 pg [facility] MCHC 33.1 32.2 - 35.5 GM/DL [facility] RDW 12.4 11.7 - 14.4 % [facility] Platelets 268 150 - 450 K/CU MM [facility] MPV 9.8 9.4 - 12.3 fL [facility] nRBC 0 0 - 0 /100 WBC [facility] % Neutros 58 % [facility] % Lymphs 32 % [facility] % Monos 7 % [facility] % Eos 2 % [facility] % Baso 0 % [facility] # Neutros 4.19 1.56 - 6.13 K/L [facility] # Lymphs 2.31 1.18 - 3.74 K/L [facility] # Monos 0.50 (H) 0.24 - 0.36 K/L [facility] # Eos 0.14 0.04 - 0.36 K/L [facility] # Baso 0.02 0.01 - 0.08 K/L [facility] Immature 0 0 - 1 % [facility] Granulocytes-[facility] Specimen Blood Performing Organization Address City/State/Zipcode Phone Number [facility] [address] [place] [address] [phone] [place] [address] * Hepatitis C antibody (04/03/2018 12:25 PM CDT) Hepatitis C Ab NON-REACTIVE Nonreactive [facility] Specimen Blood Performing Organization Address City/State/Zipcode Phone Number [address] [address] [facility] * Actin (Smooth Muscle) Antibody, IgG (04/03/2018 12:25 PM CDT) Anti-Smooth Muscle Ab <20 See Note: U [facility] Comment: INCORPORATED Reference Range: <20 NEGATIVE > OR=20 POSITIVE Antibodies recognizing actin are the main component of smooth muscle antibodies associated with autoimmune liver disease. Actin antibodies are found in approximately 75% of patients with autoimmune hepatitis (AIH) type 1, approximately 65% of patients with autoimmune cholangitis, approximately 30% of patients with primary biliary cirrhosis, and approximately 2% of healthy people. High values are closely correlated with AIH type 1. Specimen Blood Narrative Performed At Performing Lab [facility] EZ INC[facility]POR[facility] [facility] [employer] [place] [address] [place] [address] Oleksandr Dozier MD, PhD, ZENAIDA Performing Organization Address City/[facility]/[place] [facility] Centercode Phone Number [facility], [address] [place], [place] [address] [address] * Ycngy-2-Vvcwcsafdoj (04/03/2018 12:25 PM CDT) A-1 Antitrypsin 156.90 90.00 - 200.00 mg/dL [facility] Specimen Blood Performing Organization Address [facility]/Zipcode Phone Number [address] * Hepatitis A antibody, IgM (04/03/2018 12:25 PM CDT) Hep A IgM HEPATITIS A TEST NEGATIVE Nonreactive [facility] Specimen Blood Performing Organization Address [facility] [place] [facility] Centercode Phone Number [address] * DOLORES Titer & Pattern (04/03/2018 12:25 PM CDT) DOLORES Titer 1:160 [facility] DOLORES Pattern Nucleolar [facility] Specimen Blood Performing Organization Address [facility]/Zipcode Phone Number [address] * Ceruloplasmin (04/03/2018 12:25 PM CDT) Ceruloplasmin 30 18 - 53 mg/dL [facility] Comment: INCORPORATED Adults:Males: 18-36 mg/dL Fe males: 18-53 mg/dL Pediatrics: Males (mg/dL)Females (mg/dL) ------ 0-30 Days 8-25 3-28 31 Days-11 Month 15-481 5-43 1-3 Years2 5 -54 4-6 Years2 -54 7-9 Years2 5 -48 10-12 Enkes73-13 21-48 13-15 Iyszs41-66 21-46 16-18 Lfitm17-88 22-50 The pediatric ranges are derived from the following criteria: Yon SJ, Damien DON, Criss Diana et al Pediatric reference ranges for Ymef-7-Afucxlburxejo and ceruloplasmin. Clin. Chem 1997; 43:S1999 Pediatric Reference Ranges, 2nd., [place] Yon,et al. editors. [employer], [place], [place] 1997. Specimen Blood Narrative Performed At Performing Lab [facility] *[facility] [employer] [facility], [address] [place] [address] Adalgisa Barbosa MD, PhD Performing Organization Address City/[facility] [place] [facility] Centercode Phone Number [facility], [address] [facility] [address] [address] * Alpha fetoprotein (AFP), tumor marker (04/03/2018 12:25 PM CDT) Alpha-Fetoprotein 3.0 <10.0 ng/mL [facility] Specimen Blood Performing Organization Address [facility] [place] [facility] Centerconv Phone Number [address] * Hepatitis B core antibody, total (04/03/2018 12:25 PM CDT) Hep B Core Total Ab NON-REACTIVE Nonreactive [facility] Specimen Blood Performing Organization Address [facility] [place] [facility] Centercode Phone Number [address] [address] [facility] * Hepatitis B surface antibody (04/03/2018 12:25 PM CDT) Hep B S Ab <8.0 <8.0 mIU/mL [facility] Specimen Blood Performing Organization Address [facility]/State/Zipcode Phone Number [facility] [address] [place] [address] [facility] * Hepatitis B surface antigen (04/03/2018 12:25 PM CDT) hepatitis B Surface Ag NON-REACTIVE Nonreactive [facility] Specimen Blood Performing Organization Address City/[facility] [place] [facility] Centercode Phone Number [address] [phone] [facility] * Pro-time/INR (04/03/2018 12:25 PM CDT) Protime 13.1 11.7 - 14.7 seconds [facility] INR 1.0 <=5.9 [facility] Specimen Blood Narrative Performed At RECOMMENDED COUMADIN/WARFARIN INR THERAPY RANGES [facility] STANDARD DOSE: 2.0 - 3.0 Includes: PROPHYLAXIS for venous thrombosis, [facility] systemic embolization; TREATMENT for venous thrombosis and/or pulmonary embolus. HIGH RISK: Target INR is 2.5-3.5 for patients with mechanical heart valves. Performing Organization Address [facility] [place] [facility] Centerconv Phone Number [address] [address] [phone] [place] [address] * Anti-Nuclear Antibody (DOLORES) (04/03/2018 12:25 PM CDT) DOLORES Positive (A) Negative [facility] Specimen Blood Performing Organization Address City/[facility]/[place] [facility] Centercode Phone Number [address] [phone] [facility] * Ferritin (04/03/2018 12:25 PM CDT) Ferritin 166 5 - 275 ng/mL [facility] Specimen Blood Performing Organization Address [facility] [place] [facility] Centercode Phone Number [address] [address] [facility] * Bilirubin, direct (04/03/2018 12:25 PM CDT) Bilirubin, Direct 0.3 0.1 - 0.5 mg/dL [facility] Specimen Blood Performing Organization Address City/State/Zipcode Phone Number [facility] [address] [place] [address] [facility] * Comprehensive Metabolic Panel (04/03/2018 12:25 PM CDT) Protein, Total 7.8 6.0 - 8.3 gm/dL [facility] Albumin 4.5 3.5 - 5.0 g/dL [facility] Alkaline Phosphatase 92 40 - 150 U/L [facility] Total Bilirubin 0.8 0.2 - 1.2 mg/dL [facility] Sodium 142 136 - 145 meq/L [facility] Potassium 3.7 3.5 - 5.1 meq/L [facility] Chloride 106 98 - 107 meq/L [facility] CO2 24 22 - 29 meq/L [facility] BUN 14 7 - 21 mg/dL [facility] Creatinine 0.84 0.57 - 1.25 mg/dL [facility] Glucose 118 (H) 70 - 105 mg/dL [facility] Calcium 9.9 8.4 - 10.2 mg/dL [facility] AST 23 5 - 34 U/L [facility] ALT 44 6 - 55 U/L [facility] EGFR 68Comment: ESTIMATED GFR IS mL/min/1.[address] [facility] NOT ACCURATE CREATININE [facility] CLEARANCE IN PREDICTING GLOMERULAR FILTRATION RATE. ESTIMATED GFR IS NOT APPLICABLE FOR DIALYSIS PATIENTS. Specimen Blood Performing Organization Address City/State/Zipcode Phone Number [facility] [address] [place] [address] [facility] * Tissue Exam (03/21/2018 10:33 AM CDT) Case Report Surgical Pathology [facility] Report [facility] Case: [id number] Authorizing Provider:Antonio Jones DPMCollected: 03/21/2018 1033 Ordering Location: [facility] PERIOPER[facility]IVE Received: 03/21/2018 1134 SERVICES Pathologist: Rochelle Vela MD Specimen:Foot, Right, soft tissue mass from right great toe DIAGNOSIS SKIN, RIGHT GREAT TOE, [facility] EXCISION: [facility] - DIGITAL MUCOUS CYST - NEGATIVE FOR MALIGNANCY Signing Pathologist Direct Phone Line: [phone] CPT Code(s) 61190 [facility] CLINICAL HISTORY Soft tissue mass right great [facility] SPECIMEN SOURCE Soft tissue mass right great [facility] toe [facility] GROSS DESCRIPTION Received in formalin labeled [facility] "foot, right", description [facility] "soft tissue mass right great toe" is [...] specimen is entirely submitted in cassette A1. DB/pl MICROSCOPIC DESCRIPTION PERFORMED [facility] Specimen Tissue - Foot, Right Performing Organization Address City/State/Zipcode Phone Number [facility] [address] [place], [place] [phone] [facility] after 12/09/2017 Insurance Payer Benefit Subscriber ID Type Phone Address Plan / Group MEDICARE MEDICARE A xxxxxxxxxxx Medicare B
[2018-12-10] MEDS ORDERED: ASPIRIN 81 MG CHEW TAB PO ONE (15:00)
--- NOTE | 2018-12-10 15:35 | Diagnostic Imaging Report ---
CT BRAIN WO HISTORY: Weakness, left side numb COMPARISON: Report from head CT without contrast dated 03/14/2015 (images not available at time of dictation); MRI of the brain 08/30/2009 TECHNIQUE: Noncontrast axial scans were obtained from skull base to the vertex. Coronal and sagittal reconstructions obtained from the axial data. One or more of the following dose reduction techniques were used: Automated exposure control, adjustment of the mA and/or kV according to patient size, and/or utilization of iterative reconstruction technique. DISCUSSION: Scalp/Skull: Unremarkable. Brain sulci: Appropriate for patient's age. Ventricles: There is stable mild prominence of the lateral ventricles when compared to brain MRI dated 08/30/2009. The posterior septum pellucidum is either thinned or absent; this is grossly stable. Extra-axial spaces: No masses or fluid collections. Parenchyma: No abnormal densities. No mass, hemorrhage, or large vascular territory acute infarct. Dural sinuses: No abnormal densities. Sellar/Suprasellar region: Intact. Skull base: Intact. Incidental findings: None. IMPRESSION: No acute intracranial abnormalities. Signed by: Dr. Sravan French M.D. on 12/10/2018 3:32 PM
[2018-12-10 15:47] LABS: BASOPHILS % 0.5 % (0.0-1.0); EOSINOPHILS # (AUTO) 0.3 (0.0-0.4); EOSINOPHILS % 3.7 % (0.0-6.0); HEMATOCRIT 42.3 % (34.2-44.1); HEMOGLOBIN 14.4 g/dL (12.0-16.0); LYMPHOCYTES # (AUTO) 3.5 (1.0-3.2); LYMPHOCYTES % 41.7 % (18.0-39.1); MEAN CORPUSCULAR HEMOGLOBIN 29.6 pg (28-32); MEAN CORPUSCULAR VOLUME 86.9 fL (81-99); MONOCYTES # (AUTO) 0.7 (0.2-0.8); MONOCYTES % 8.6 % (4.4-11.3); NEUTROPHILS # (AUTO) 3.8 (2.1-6.9); NEUTROPHILS % 45.3 % (38.7-80.0); PLATELET COUNT 270 x10e3/uL (140-360); RED BLOOD COUNT 4.87 x10e6/uL (3.6-5.1); RED CELL DISTRIBUTION WIDTH 12.8 % (11.7-14.4)
[2018-12-10 15:51] LABS: BILIRUBIN,URINE NEGATIVE (NEGATIVE); CLARITY,URINE CLEAR (CLEAR); COLOR,URINE YELLOW (YELLOW); KETONES,URINE NEGATIVE (NEGATIVE); LEUKOCYTE ESTERASE ,URINE 1+ (NEGATIVE); NITRITE,URINE NEGATIVE (NEGATIVE); PROTEIN,URINE DIPSTICK NEGATIVE (NEGATIVE); URINE UROBILINOGEN 0.2 mg/dL (0.2 - 1)
[2018-12-10 16:05] LABS: ALANINE AMINOTRANSFERASE 47 IU/L (0-55); ALBUMIN 4.3 g/dL (3.5-5.0); ALBUMIN/GLOBULIN RATIO 1.3 (0.8-2.0); ALKALINE PHOSPHATASE 67 IU/L (40-150); ANION GAP 14.5 mmol/L (8-16); BLOOD UREA NITROGEN 16 mg/dL (7-26); BUN/CREATININE RATIO 19 (6-25); CALCIUM 10.1 mg/dL (8.4-10.2); CARBON DIOXIDE 24 mmol/L (22-29); CHLORIDE 103 mmol/L (98-107); CREATINE KINASE 72 IU/L (29-168); CREATININE, SERUM 0.84 mg/dL (0.57-1.11); EST GLOMERULAR FILTRATION RATE > 60 ML/MIN (60-); GLUCOSE 99 mg/dL (74-118); POTASSIUM 3.5 mmol/L (3.5-5.1); SODIUM 138 mmol/L (136-145)
[2018-12-10 16:06] LABS: BACTERIA,URINE MANY /HPF; EPITHELIAL CELLS,URINE MODERATE /LPF; RBC,URINE 0-5 /HPF (0-5)
[2018-12-10 16:07] LABS: URIC ACID CRYSTALS,URINE FEW (FEW)
--- OUTSIDE RECORDS SUMMARY | 2018-12-10 17:24 | XMS REPORT | Clinical Summary ---
Author Author KAILASH [facility] Address Unknown Phone Unavailable Care Team Providers Care Senior Software Manager Name Role Phone Liban Mooney PCP Allergies [...] medication. Currently, symptoms are being managed with [place]. She will be following up with [facility] in April 2018. Fatty liver 04/03/2018 [...] Area Manufactur er 06/20/2018 NC-1001 / / [id number] Tissue Nucell Med W/Matrix Nc-1001 Tissue NUTECH MED - [id number] Graft/Subs Implanted: Qty: 1 on 04/07/2018 by Antonio Tristan DPM 08/31/2022 [id number] / [id number] / [facility] Right: Toe [employer] Implanted: Qty: [...] 04/03/2018 Abnormal liver enzymes 12:25 PM CDT [id number]\\, Routine 04/03/2018 Abnormal liver enzymes SERUM 12:25 [...] PM CDT) Narrative Performed At FINAL REPORT [facility] MRI of the abdomen with and without [...] MD Report Verified Date/Time:04/21/2018 18:38:48 Reading Location: [address] Consult Reading Room Procedure Note Interface, [...] Report Verified Date/Time: 04/21/2018 18:38:48 Reading Location: [facility] [id number] Ortho Consult Reading Room Performing Organization Address [facility] Phone Number GE RIS * POC-Creatinine (04/21/2018 1:27 PM CDT) POC-Creatinine 0.7Comment: TESTED AT [facility] 0.6 - 1.3 mg/dL [address] POC-EGFR 84 mL/min/1.73M2 [facility] Specimen Blood Performing Organization Address [facility] Phone Number [address] [address] [facility] * Hepatitis A antibody, IgG (04/03/2018 12:25 PM CDT) Hep A IgG Nonreactive Nonreactive [facility] Specimen Blood Performing Organization Address [facility] Phone Number [address] [address] [facility] * Mitochondrial Antibodies, M2 (04/03/2018 12:25 PM CDT) Mitochondria M2 Ab <20.0 See Note: U [facility] Comment: INCORPORATED Reference Range: NEGATIVE:< OR=20.0 EQUIVOCAL: 20.1-24.9 POSITIVE:> OR=25.0 Specimen Blood Narrative Performed At Performing Lab [facility] [address] [place] [address] Oleksandr Dozier MD, PhD, ZENAIDA Performing Organization Address [facility] Phone Number [facility], [address] [place], [place] INCORPORATED [employer] [address] * Iron, TIBC, % sat. (without ferritin) (04/03/2018 12:25 PM CDT) Iron 124 40 - 160 ug/dL [facility] TIBC 355 250 - 450 ug/dL [facility] Iron % Saturation 35 20 - 55 % [facility] Specimen Blood Performing Organization Address [facility] Phone Number [facility] [address] [place] [address] MEDICAL CENTER * CBC with platelet count + automated diff (04/03/2018 12:25 PM CDT) WBC 7.2 3.5 - 10.5 K/L [facility] RBC 4.58 3.93 - 5.22 M/L [facility] Hemoglobin 13.8 11.2 - 15.7 GM/DL [facility] Hematocrit 41.7 34.1 - 44.9 % [facility] MCV 91.0 79.4 - 94.8 fL [facility] MCH 30.1 25.6 - 32.2 pg [facility] MCHC 33.1 32.2 - 35.5 GM/DL [facility] RDW 12.4 11.7 - 14.4 % [facility] Platelets 268 150 - 450 K/CU MM [facility] MPV 9.8 9.4 - 12.3 fL [facility] nRBC 0 0 - 0 /100 WBC [facility] % Neutros 58 % [facility] % Lymphs 32 % [facility] % Monos 7 % [facility] % Eos 2 % [facility] % Baso 0 % [facility] # Neutros 4.19 1.56 - 6.13 K/L [facility] # Lymphs 2.31 1.18 - 3.74 K/L [facility] # Monos 0.50 (H) 0.24 - 0.36 K/L [facility] # Eos 0.14 0.04 - 0.36 K/L [facility] # Baso 0.02 0.01 - 0.08 K/L [facility] Immature 0 0 - 1 % [facility] Granulocytes-[facility] Specimen Blood Performing Organization Address City/State/Zipcode Phone Number [facility] [address] [place] [address] [phone] [place] [address] * Hepatitis C antibody (04/03/2018 12:25 PM CDT) Hepatitis C Ab NON-REACTIVE Nonreactive [facility] Specimen Blood Performing Organization Address City/State/Zipcode Phone Number [address] [address] [facility] * Actin (Smooth Muscle) Antibody, IgG [...] At Performing Lab [facility] [employer] [facility] [employer] [place] [address] [place] [address] Oleksandr Dozier MD, PhD, ZENAIDA Performing Organization Address City/[facility] Phone Number [facility], [address] [place], [place] [address] [address] * Quoqu-0-Kqwxrsvmgsg (04/03/2018 12:25 PM CDT) A-1 Antitrypsin 156.90 90.00 - 200.00 mg/dL [facility] Specimen Blood Performing Organization Address [facility]/Zipcode Phone Number [address] * Hepatitis A antibody, IgM (04/03/2018 12:25 PM CDT) Hep A IgM HEPATITIS A TEST NEGATIVE Nonreactive [facility] Specimen Blood Performing Organization Address [facility] Phone Number [address] * DOLORES Titer & Pattern (04/03/2018 12:25 PM CDT) DOLORES Titer 1:160 [facility] DOLORES Pattern Nucleolar [facility] Specimen Blood Performing Organization Address [facility]/Zipcode Phone Number [address] * Ceruloplasmin (04/03/2018 12:25 PM CDT) Ceruloplasmin 30 18 - 53 mg/dL [facility] Comment: INCORPORATED Adults:Males: 18-36 mg/dL Fe males: 18-53 mg/dL Pediatrics: Males (mg/dL)Females (mg/dL) ------ 0-30 Days 8-25 3-28 31 Days-11 Month 15-481 5-43 1-3 Years2 5 -54 4-6 Years2 -54 7-9 Years2 5 -48 10-12 Suhet58-35 21-48 13-15 Pbapw39-69 21-46 16-18 Ylbrk26-75 22-50 The pediatric ranges are derived from the following criteria: Yon SJ, Damien DON, Criss Diana et al Pediatric reference ranges for Hlyi-7-Xochgidexnnzo and ceruloplasmin. Clin. Chem 1997; 43:S1999 Pediatric Reference Ranges, 2nd., [place] Yon,et al. editors. [employer], [place], [place] 1997. Specimen Blood Narrative Performed At Performing Lab [facility] *[facility], [address] [place] [address] Adalgisa Barbosa MD, PhD Performing Organization Address City/[facility] Phone Number [facility], [address] [facility] [address] [address] * Alpha fetoprotein (AFP), tumor marker (04/03/2018 12:25 PM CDT) Alpha-Fetoprotein 3.0 <10.0 ng/mL [facility] Specimen Blood Performing Organization Address [facility] Phone Number [address] * Hepatitis B core antibody, total (04/03/2018 12:25 PM CDT) Hep B Core Total Ab NON-REACTIVE Nonreactive [facility] Specimen Blood Performing Organization Address [facility] Phone Number [address] [address] [facility] * Hepatitis B surface antibody (04/03/2018 12:25 PM CDT) Hep B S Ab <8.0 <8.0 mIU/mL [facility] Specimen Blood Performing Organization Address [facility]/State/Zipcode Phone Number [facility] [address] [place] [address] [facility] * Hepatitis B surface antigen (04/03/2018 12:25 PM CDT) hepatitis B Surface Ag NON-REACTIVE Nonreactive [facility] Specimen Blood Performing Organization Address City/[facility] Phone Number [address] [phone] [facility] * Pro-time/INR (04/03/2018 12:25 PM CDT) Protime 13.1 11.7 - 14.7 seconds [facility] INR 1.0 <=5.9 [facility] Specimen Blood Narrative Performed At RECOMMENDED COUMADIN/WARFARIN INR THERAPY RANGES [facility] STANDARD DOSE: 2.0 - 3.0 Includes: PROPHYLAXIS for venous thrombosis, [facility] systemic embolization; TREATMENT for venous thrombosis and/or pulmonary embolus. HIGH RISK: Target INR is 2.5-3.5 for patients with mechanical heart valves. Performing Organization Address [facility] Phone Number [address] [address] [phone] [place] [address] * Anti-Nuclear Antibody (DOLORES) (04/03/2018 12:25 PM CDT) DOLORES Positive (A) Negative [facility] Specimen Blood Performing Organization Address City/[facility] Phone Number [address] [phone] [facility] * Ferritin (04/03/2018 12:25 PM CDT) Ferritin 166 5 - 275 ng/mL [facility] Specimen Blood Performing Organization Address [facility] Phone Number [address] [address] [facility] * Bilirubin, direct (04/03/2018 12:25 PM CDT) Bilirubin, Direct 0.3 0.1 - 0.5 mg/dL [facility] Specimen Blood Performing Organization Address City/State/Zipcode Phone Number [facility] [address] [place] [address] [facility] * Comprehensive Metabolic Panel (04/03/2018 12:25 PM CDT) Protein, Total 7.8 6.0 - 8.3 gm/dL [facility] Albumin 4.5 3.5 - 5.0 g/dL [facility] Alkaline Phosphatase 92 40 - 150 U/L [facility] Total Bilirubin 0.8 0.2 - 1.2 mg/dL [facility] Sodium 142 136 - 145 meq/L [facility] Potassium 3.7 3.5 - 5.1 meq/L [facility] Chloride 106 98 - 107 meq/L [facility] CO2 24 22 - 29 meq/L [facility] BUN 14 7 - 21 mg/dL [facility] Creatinine 0.84 0.57 - 1.25 mg/dL [facility] Glucose 118 (H) 70 - 105 mg/dL [facility] Calcium 9.9 8.4 - 10.2 mg/dL [facility] AST 23 5 - 34 U/L [facility] ALT 44 6 - 55 U/L [facility] EGFR 68Comment: ESTIMATED GFR IS mL/min/1.[address] [facility] NOT ACCURATE CREATININE [facility] CLEARANCE IN PREDICTING GLOMERULAR FILTRATION RATE. ESTIMATED GFR IS NOT APPLICABLE FOR DIALYSIS PATIENTS. Specimen Blood Performing Organization Address City/State/Zipcode Phone Number [facility] [address] [place] [address] [facility] * Tissue Exam (03/21/2018 10:33 AM CDT) Case Report Surgical Pathology [facility] Report [facility] Case: [id number] Authorizing Provider:Antonio Jones DPMCollected: 03/21/2018 1033 Ordering Location: [facility] PERIOPERATIVE Received: 03/21/2018 1134 SERVICES Pathologist: Rochelle Vela MD Specimen:Foot, Right, soft tissue mass from right great toe DIAGNOSIS SKIN, RIGHT GREAT TOE, [facility] EXCISION: [facility] - DIGITAL MUCOUS CYST - NEGATIVE FOR MALIGNANCY Signing Pathologist Direct Phone Line: [phone] CPT Code(s) 31948 [facility] CLINICAL HISTORY Soft tissue mass right great [facility] SPECIMEN SOURCE Soft tissue mass right great [facility] toe [facility] GROSS DESCRIPTION Received in formalin labeled [facility] "foot, right", description [facility] "soft tissue mass right great toe" [...] in cassette A1. DB/pl MICROSCOPIC DESCRIPTION PERFORMED [facility] Specimen Tissue - Foot, Right Performing Organization Address City/State/Zipcode Phone Number [facility] [address] [place], [place] [phone] MEDICAL [facility]ENTER after 12/09/2017 Insurance Payer Benefit Subscriber ID Type Phone Address Plan / Group MEDICARE MEDICARE A xxxxxxxxxxx Medicare B
--- NOTE | 2018-12-10 19:06 | Diagnostic Imaging Report ---
EXAMINATION: MRI of the brain without contrast. HISTORY: Left-sided numbness and weakness, evaluate for CVA. COMPARISON: Head CT 12/10/2018 and brain MRI 08/30/2009 TECHNIQUE: Sagittal T2; axial DWI, T2, FLAIR, T1-IR, T2 gradient echo; coronal FLAIR. IMAGE QUALITY: Adequate. FINDINGS: Parenchyma: 1. Minimal periventricular white matter T2 and FLAIR hyperintense foci, likely nonspecific chronic microvascular ischemic changes, within normal limits for age. 2. No mass, hemorrhage, acute or chronic infarcts. Skull: Unremarkable. Vessels: Expected flow voids present in the major arteries and dural sinuses. Extra-axial spaces: No abnormal signal intensity or mass effect. Brain volume: Within normal limits for age. Ventricles: Stable mild ventriculomegaly without transependymal CSF spread when compared to MRI 08/30/2009, again the posterior septum pellucidum partially incompletely formed in the posterior/inferior segment, which corresponds to an incidental finding. Foramen magnum: Unremarkable. Sella: Unremarkable. Paranasal / mastoid sinuses: No significant inflammatory disease. Incidental findings: Partially visualized approximately 1.2 cm T2 hyperintense, otherwise almost isointense to On T1 nodule within the left parotid gland, not clearly as present on prior study. IMPRESSION: 1. No acute infarct. 2. Minimal chronic microvascular ischemic changes. 3. Stable mild ventriculomegaly. 4. Partially visualized T2 hyperintense nodule within the left parotid gland. A neck CT with contrast is recommended for further evaluation if clinically indicated. Signed by: Dr. Joanne Luna M.D. on 12/10/2018 7:03 PM
[2018-12-10 20:00] VITALS: BP 121/61
[2018-12-10] MEDS: CEFTRIAXONE SOD 1 GM/NS 50 ML 50 ML IV SCH (20:03)
[2018-12-10] MEDS ORDERED: METFORMIN HCL500 MG PO (20:04)
[2018-12-10] MEDS ORDERED: VALIUM5 MG PO (20:05)
[2018-12-10] MEDS ORDERED: GABAPENTIN300 MG PO (20:05)
[2018-12-10] MEDS ORDERED: HYDROCHLOROTHIA25 MG PO (20:05)
--- NOTE | 2018-12-10 20:50 | NUR ---
Pt received from ER. Pt A&O and in no apparent distress. Pt is on RA and tele #2 running SR. Pt has no complaints of pain but does still c/o some numbness in her hands. All safety measures ensured, bed alarm on, and pt call vick near.
[2018-12-10 20:56] VITALS: BP 157/70
[2018-12-11] VITALS (7 sets, daily range): BP systolic 101–121; BP diastolic 61–74
--- NOTE | 2018-12-11 00:34 | NUR ---
Walking rounds complete. Pt sleeping and in no apparent distress. Pt bed alarm on.
--- NOTE | 2018-12-11 02:30 | History and Physical ---
This is a 63-year-old lady, comes in with left-sided weakness. HISTORY OF PRESENTING ILLNESS: This is Ms. Lucina Barrett, who is a 63-year-old lady with a history of neuropathy, history of diabetes mellitus, and history of anxiety, was in usual state of health. Until about 2 months ago, the patient started to have paraesthesias and weakness and hyperaesthesias on bilateral upper extremity and then today this morning, the patient woke up, noted that she had swaying to left side and left-sided hyperaesthesias, traveling onto the shoulder area and the patient is admitted for left-sided weakness, rule out CVA. PAST MEDICAL HISTORY: History of diabetes mellitus, history of neuropathy, history of hypertension, and history of anxiety. MEDICATIONS: She takes at home are Xanax 0.5 mg 3 times a day. For her IBS: 1. Fluconazole 100 mg recently received. 2. Ibuprofen mg as needed. 3. Zofran 8 mg as needed. 4. Pantoprazole 40 mg daily. 5. Tramadol 50 mg for pain. 6. Movantik 25 mg for her IBS . PAST SURGICAL HISTORY: History of two neck surgeries which include laminectomy in 1996 and ACDF by in 2001. The patient also had a gallbladder surgery, total hysterectomy, and surgery. SOCIAL HISTORY: No EtOH. No IV drug abuse. No history of smoking either. REVIEW OF SYSTEMS: Negative for chest pain or shortness of breath. No nausea, vomiting, diarrhea. No constipation. No rectal bleeding. No hematochezia. No hematemesis. MEDICINES: She takes at home are: 1. Metformin 500 mg twice a day. 2. Gabapentin 600 mg 3 times a day. 3. Hydrochlorothiazide 12.5 mg daily. 4. Valium 5 mg daily also. PHYSICAL EXAMINATION: VITAL SIGNS: Temperature 97.7, pulse of 79, respirations of 18, blood pressure is 129/96. HEENT: Normocephalic, atraumatic. Pupils are reactive to light and accommodation. CVS: S1 and S2 normal. Regular rate and rhythm. ABDOMEN: Nontender, nondistended. EXTREMITIES: No clubbing, no cyanosis, no edema. NEUROLOGIC: Nonfocal changes seen, although the patient complains of hyperesthesias in the left upper extremity. LABORATORY VALUES: The patient's white count is 8.39, hemoglobin is 13.4, hematocrit of 42.3, platelet counts 270, otherwise everything normal. Chemistries: Sodium of 138, potassium of 3.5, BUN 16, creatinine 0.84, and troponin less than 0.01. Urine, white count is positive and many bacteria. Leukocyte esterase 1+. IMAGING STUDIES: Brain CT shows no acute intracranial abnormalities. MRI is pending at this time. ASSESSMENT: A 63-year-old lady with left-sided weakness, rule out cerebrovascular accident. The patient's MRI is pending and carotid Doppler in the morning. Further recommendation, per clinical course. We will restart all her medications. For now, we will hold back on the gabapentin and possible discharge tomorrow if both echo and carotids are normal. The patient does have neurologist , who apparently has done a skin biopsy for small fiber neuropathy. We will continue to monitor the patient at night with telemetry monitoring. Further recommendation per clinical course. MD JIMMIE Islas/FREDA /[id number]
--- NOTE | 2018-12-11 06:45 | NUR ---
report given to casino shift manager nurse, patient aware of change. Call vick within reach and bed in lowest position.
--- NOTE | 2018-12-11 07:07 | NUR ---
Report received and Walking rounds complete. Pt resting in bed and in no apparent distress.
[2018-12-11] MEDS: HYDROCHLOROTHIAZIDE 25 MG TAB PO SCH (08:35)
[2018-12-11] MEDS: GABAPENTIN 300 MG CAP PO SCH ×2 (08:35→16:24)
[2018-12-11] MEDS: METFORMIN HCL 500 MG TAB PO SCH ×2 (08:35→16:24)
--- NOTE | 2018-12-11 09:42 | Progress Note ---
DATE: SUBJECTIVE: The patient is here for hyperesthesias, paresthesias of the upper extremity, and also left-sided weakness. The patient is currently symptomatic with bilateral tingling of the upper extremities and it is getting worse according to the patient. The patient's tingling has gone up from the fingers all the way to the shoulders. No chest pains. No shortness of breath. No nausea, vomiting, or diarrhea. No constipation. No rectal bleeding. MEDICATIONS: She is on right now 5 mg at bedtime of Valium, gabapentin 600 mg twice a day, hydrochlorothiazide 25 mg half tablet daily, hydrocodone 7.5 as needed, metformin 500 mg twice a day, and Zofran. The patient has been given aspirin and the patient is currently on Rocephin too. OBJECTIVE: VITAL SIGNS: Temperature is 96.1, pulse of 73, respirations of 18, and blood pressure is 101/69. HEENT: Normocephalic and atraumatic. Pupils are reactive to light and accommodation. CVS: S1 and S2 are normal. Regular rate and rhythm. ABDOMEN: Nontender and nondistended. EXTREMITIES: No clubbing, no cyanosis, no edema. NEUROLOGIC: Cranial nerves normal. No sensory motor deficits noted. Reflexes normal and muscle tone normal. LABORATORY VALUES: None today. Chemistries are normal yesterday and glucose is 147. IMAGING STUDIES: MRI has come back, has reported no acute infarct. Minimal chronic microvascular ischemic changes. Mild ventriculomegaly and also visualized T2 hyperintense nodule within the left parotid. The patient has been notified of this and the patient will do a CT scan as an outpatient basis. ASSESSMENT AND PLAN: Left-sided weakness, rule out transient ischemic attack, rule out cerebrovascular accident. The patient is due for her carotid Doppler and also echocardiogram. We will go ahead and order an MRI of the neck to rule out spinal stenosis. The patient has had an ACDF in the past. Lipid profile has been ordered and her home medications have been reinstated and restarted. Further recommendation per clinical course. We will continue monitoring the patient. DISPOSITION: Possible discharge today after studies have been done. MD JIMMIE Islas/MODL /[id number]
[2018-12-11 09:56] LABS: CHOL/HDL RATIO 4.1 (3.0-3.6)
--- NOTE | 2018-12-11 10:30 | NUR ---
Patient leaving unit for MRI via wheelchair, spoke with Dr Barth and patient is able to come off telemetry for procedure and will be placed back on following the scan.
--- NOTE | 2018-12-11 11:23 | NUR ---
Patient arrived back on unit via wheelchair. Patient alert and oriented and in no distress. Call vick within reach and bed in lowest position. Addendum: 12/11/18 at 1202 by Annabel Markham RN telemetry back in place
[2018-12-11] MEDS: HYDROCODONE/APAP 7.5MG-325MG 1 EA TAB PO SCH ×3 (11:59→23:59)
--- NOTE | 2018-12-11 13:07 | Diagnostic Imaging Report ---
History: Left-sided weakness and numbness Comparison studies: None Technique: Sagittal T1, T2 and IR, axial T2 and axial gradient echo Intravenous contrast: None Findings: Alignment: Normal lordosis. No scoliosis. Cervicomedullary junction: No abnormalities. Patent foramen magnum. Soft tissues: No T2 hyperintense inflammatory changes. Spinal cord: Focal cord signal abnormality at C3-C4 which may reflect gliosis, ischemia or edema related to severe degenerative canal stenosis described below. The remaining cervical cord is normal in size and signal intensity. Vertebrae: Surgical changes of C4-C7 anterior cervical discectomy and fusion (ACDF). No fracture or infection. A nonaggressive-appearing 10 mm lesion in the T2 vertebral body, likely incidental hemangioma. Degenerative changes: C2-C3: Patent canal and foramina. C3-C4: Mildly degenerated disc. Disc bulge with superimposed 7 mm TV x 6 mm AP central disc protrusion and thickened ligamentum flavum result in severe canal stenosis with associated cord signal changes. Severe bilateral foraminal stenosis due to uncovertebral facet arthrosis. C4-C5: Surgical level. Moderate left foraminal stenosis due to uncovertebral facet arthrosis. Patent canal and right foramen. C5-C6: Surgical level. Uncovertebral arthrosis results in severe left and moderate right foraminal stenosis. Patent canal. C6-C7: Surgical level. Uncovertebral arthrosis results in severe left and moderate right foraminal stenosis. Patent canal. C7-T1: Bilateral facet arthrosis. Patent canal and foramina. Incidental findings: A 10 mm perineural/nerve root sleeve cyst at the left C7-T1 foramen. IMPRESSION: 1. Severe canal stenosis at C3-C4 due to a disc bulge, central disc protrusion and thickened ligamentum flavum with associated cord signal abnormality indicative of cord edema, gliosis or ischemia. Findings can be correlated for compressive myelopathy symptoms. 2. Surgical changes of C4-C7 ACDF. 3. Varying degrees of moderate to severe multilevel degenerative foraminal stenosis from C3 to C7. Findings discussed RN Grace Davis at at 1:01 PM on 12/11/2018. Signed by: Dr. Jason Dozier M.D. on 12/11/2018 1:04 PM
--- NOTE | 2018-12-11 15:45 | NUR ---
SOCIAL WORK INITIAL ASSESSMENT Gear Design Engineer to bedside to discuss plan of care with patient/family. CM/SW role and care transitions discussed. Anticipated discharge plan discussed along with duration of care. CM/SW discussed patients right to make decisions in care. CM/SW work hours given. Patient lives: HOUSE WITH FAMILY Admit/Transfer: VIA ED POA/Emergency contact: EDGAR [phone] Current/Previous Home Health: NONE PCP/Follow-up Care: DUANE Current/Previous DME: NONE Other Services: NONE Employment Status: RETIRED Areas of Concerns: NONE Referral Needs: NONE Education Needs: NONE IMM/ARELLANO given and signed (if applicable): UPON ADMISSION Goal for discharge: RETURN HOME CM/SW left business card at the bedside with contact information. Name and number was also written on the patients whiteboard. Patient verbalized understanding of discussion. CM will follow-up with ongoing discharge and transition of care needs.
--- NOTE | 2018-12-11 19:14 | NUR ---
Report received and walking rounds complete. Pt resting in bed and in no apparent distress. Pt on tele and room air. No current complaints of pain. All safety measures ensured. Pt at bedside.
[2018-12-11] MEDS: CEFTRIAXONE SOD 1 GM/NS 50 ML 50 ML IV SCH (20:21)
[2018-12-11] MEDS: DIAZEPAM 5 MG TAB PO SCH (20:21)
[2018-12-11] MEDS ORDERED: SODIUM CHLORIDE 0.9% 250ML 250 ML ONE (20:24)
[2018-12-12] VITALS (8 sets, daily range): BP systolic 96–137; BP diastolic 53–82
[2018-12-12] MEDS: HYDROCODONE/APAP 7.5MG-325MG 1 EA TAB PO SCH ×3 (06:16→17:53)
--- NOTE | 2018-12-12 07:07 | NUR ---
report given and walking rounds complete
[2018-12-12] MEDS: METFORMIN HCL 500 MG TAB PO SCH ×2 (09:15→17:52)
[2018-12-12] MEDS: GABAPENTIN 300 MG CAP PO SCH ×2 (09:15→17:52)
[2018-12-12] MEDS: HYDROCHLOROTHIAZIDE 25 MG TAB PO SCH (09:15)
--- NOTE | 2018-12-12 09:15 | NUR ---
Pt received resting in bed. Alert and oriented x4. Oriented to staff and surroundings, encouraged to press call vick if help needed. Pt noted with weakness to both arms. Emotional support given. Fall precautions maintained. Will monitor
--- NOTE | 2018-12-12 10:17 | Progress Note ---
DATE: SUBJECTIVE: The patient is here for paresthesias, hyperesthesias and also for complaints of left-sided weakness. Stroke has been ruled out. The patient's MRI of the brain has been negative, echocardiogram showed concentric LVH, and carotid Dopplers were negative. The patient is currently still complaining of paresthesias in the upper extremities, more on the left and complains of paresthesias extending all the way to the shoulder joint. MEDICATIONS: At this time are Rocephin, Valium, gabapentin, hydrochlorothiazide, hydrocodone, and metformin. OBJECTIVE: VITAL SIGNS: Temperature is 96.1, pulse is 63, respirations of 17, blood pressure is 99/60, pulse oximetry of 94%. HEENT: Normocephalic, atraumatic. Pupils are reactive to light and accommodation. CVS: S1 and S2 normal. Regular rate and rhythm. ABDOMEN: Nontender, nondistended. EXTREMITIES: No clubbing, no cyanosis, no edema. NEUROLOGIC: Stable. DIAGNOSTIC STUDIES: Imaging of the cervical spine MRI shows severe canal stenosis C3-C4 due to disk bulge, central disk protrusion and thickened ligamentum flavum associated cord edema, findings correlate with compressive myelopathy syndrome. ASSESSMENT: 1. Myelopathy. 2. Left-sided weakness. 3. Hypertension. 4. Newly diagnosed diabetes mellitus. PLAN: Continue monitoring the patient. A consult with Dr. Asencio has been done. If deemed necessary, the patient will have surgery here or can be done as an outpatient basis. Further recommendation and clinical course, we will continue monitoring the patient and disposition is depended on Dr. Asencio consult. MD JIMMIE Islas/MODL /[id number]
[2018-12-12] MEDS ORDERED: DEXTROSE 50% SYRINGE 50 ML IV PRN (17:00)
[2018-12-12] MEDS ORDERED: SODIUM CHLORIDE 0.9% 250ML 250 ML ONE (18:05)
[2018-12-12] MEDS: CEFTRIAXONE SOD 1 GM/NS 50 ML 50 ML IV SCH (18:23)
[2018-12-12] MEDS: DEXAMETHASONE SOD PHOS INJ 4 MG/ML VIAL IV SCH (18:23)
--- NOTE | 2018-12-12 19:00 | NUR ---
received report from day nurse. patient is resting comfortably in bed. bed is in lowest position and call vick is within reach. will continue to monitor patient.
[2018-12-12] MEDS: DIAZEPAM 5 MG TAB PO SCH (21:33)
[2018-12-12] MEDS: INSULIN REGULAR, HUMAN 100 UNIT/1 ML 3ML VIAL SQ SCH (21:33)
[2018-12-13] VITALS (8 sets, daily range): BP systolic 128–173; BP diastolic 63–78
[2018-12-13] MEDS: DEXAMETHASONE SOD PHOS INJ 4 MG/ML VIAL IV SCH ×5 (00:04→23:14)
[2018-12-13] MEDS: HYDROCODONE/APAP 7.5MG-325MG 1 EA TAB PO SCH ×6 (00:04→23:14)
--- NOTE | 2018-12-13 00:36 | Consultation ---
DATE OF CONSULTATION: 12/12/2018 REASON FOR CONSULTATION: Cervical disk herniation with myelopathy. HISTORY OF PRESENT ILLNESS: The patient is a 63-year-old woman, who has previously undergone C4-5, C5-6, and C6-7 fusion by me in the distant past with excellent results. She has been asymptomatic until last summer when started to develop a feeling of coldness and numbness in the hands. By August 2018, the numbness and tingling had extended from the hands to the elbow symmetrically and she has developed clumsiness of the hands. She was evaluated by neurologist and customer operations manager. Because of a recent diagnosis of diabetes mellitus, she thought that perhaps she has peripheral neuropathy. Over the past 2 months, she has developed increasing weakness and stiffness in the left leg and her balance has become poor. Few days ago, she developed a sudden onset of numbness from the left side of the shoulder and neck all the way to the left arm and left-sided trunk and left leg. She thought she was having a stroke and came to the hospital, where she was admitted and underwent a workup that eventually revealed cervical cord compression at C3-4. She denies any urinary incontinence, but occasionally has urinary retention. She denies any significant neck pain. PHYSICAL EXAMINATION: The patient is alert and oriented with intact memory and fluent speech. Cranial nerves are intact. The neck has moderately decreased range of motion upon rotation to each side and extension. She has non-dermatomal numbness in the left arm, left side of the trunk, and left leg. Motor strength is diminished in both triceps and in the furnace charging machine operator of both hands. Motor tone is increased in the hands. Rapid alternating movements are performed with clumsiness in both hands. There is increased motor tone in the left leg and a spastic mildly unstable gait. Deep tendon reflexes are hyperactive throughout. Plantar reflexes are extensor on the left and flexor on the right. RADIOGRAPHS: MRI of the cervical spine reveal solid fusion and excellent decompression at C4-5, C5-6, and C6-7. She has developed a large central disk herniation at C3-4, which compresses the cord and produces a significant cord edema with increased T2 signal. IMPRESSION: C3-4 disk herniation with cord compression and cord edema, above the level of previous C4-C7 fusion. She is symptomatic with a cervical myelopathy syndrome. I recommend C3-C4 anterior cervical diskectomy, allograft fusion and plating. The surgery will be performed Saturday morning. Over the weekend, she will be placed on intravenous Decadron to reduce the cord edema. In order to avoid removal of her long C4-C7 anterior cervical plate, I will perform a surgery by using a zero-profile implant at C3-4. The risks, benefits, and alternative were explained to the patient and her in great detail. She is already familiar with this operation. She risks of infection, bleeding, swallowing problems, hoarseness, and nonfusion and hardware failure and the possibility of future operations were explained. The possibility of persistent pain, numbness, weakness, and gait instability were explained. She gives informed consent to proceed with surgery. Yordy Asencio MD PP/MODL /[id number]
--- NOTE | 2018-12-13 07:07 | NUR ---
report given to day nurse. patient is resting in bed. bed is in lowest position and call vick is within reach. will continue to monitor patient.
[2018-12-13] MEDS: INSULIN REGULAR, HUMAN 100 UNIT/1 ML 3ML VIAL SQ SCH ×4 (09:38→20:45)
[2018-12-13] MEDS: GABAPENTIN 300 MG CAP PO SCH ×2 (09:39→17:08)
[2018-12-13] MEDS: METFORMIN HCL 500 MG TAB PO SCH ×2 (09:39→17:08)
[2018-12-13] MEDS: HYDROCHLOROTHIAZIDE 25 MG TAB PO SCH (09:39)
--- NOTE | 2018-12-13 17:00 | NUR ---
Received pt at this time from Observation unit. Pt is aox4 and able to verbalize needs. Denies any pain at this time. Pt is able to ambulate with use of walker.
--- NOTE | 2018-12-13 19:02 | NUR ---
patient received awake, alert, lying quietly in bed. no c/o pain noted. pm assessment complete. patient instructed to call for assistance when needed.
[2018-12-13] MEDS ORDERED: SODIUM CHLORIDE 0.9% 250ML 250 ML ONE (19:17)
[2018-12-13] MEDS: CEFTRIAXONE SOD 1 GM/NS 50 ML 50 ML IV SCH (19:30)
[2018-12-13] MEDS: DIAZEPAM 5 MG TAB PO SCH (20:45)
[2018-12-14] VITALS (7 sets, daily range): BP systolic 116–133; BP diastolic 58–71
[2018-12-14] MEDS: HYDROCODONE/APAP 7.5MG-325MG 1 EA TAB PO SCH ×4 (05:25→23:45)
[2018-12-14] MEDS: DEXAMETHASONE SOD PHOS INJ 4 MG/ML VIAL IV SCH ×4 (05:25→23:45)
[2018-12-14] MEDS: INSULIN REGULAR, HUMAN 100 UNIT/1 ML 3ML VIAL SQ SCH ×4 (08:42→21:00)
[2018-12-14] MEDS: METFORMIN HCL 500 MG TAB PO SCH ×2 (08:42→17:05)
[2018-12-14] MEDS: HYDROCHLOROTHIAZIDE 25 MG TAB PO SCH (08:43)
[2018-12-14] MEDS: GABAPENTIN 300 MG CAP PO SCH ×2 (08:48→17:05)
--- NOTE | 2018-12-14 16:28 | NUR ---
RD Recommendation for Physician: Continue diet as ordered Plan of Care: RD following, monitoring for adequacy and tolerance Nutrition reason for involvement: Nutrition Risk Trigger-MST Primary Diagnose(s):CVA Ht:62 in Wt:173lbs BMI:31.6 kg/m2 IBW:110lbs RD Assessment:(12/14/2018) Initial encounter with patient. Pt is eating well and watching her CHO intake due to Hx of T2DM and now on steroids. Pt denies N,V,D nor has any difficulty chewing or swallowing. Current Diet:1600 ADA Malnutrition Evaluation (12/14/2018) The patient does not meet criteria for a specified degree of malnutrition at this time. Will re-evaluate at follow-up as appropriate. Diet Education Needs Assessment: Diet education not indicated. Diet Adequacy: Meeting calorie needs, Meeting protein needs, Meeting fluid needs Tolerance: Tolerating PO Nutrition Care Level:mihaela Maharaj RD, LD, CNSC
--- NOTE | 2018-12-14 19:10 | NUR ---
patient received awake, alert, lying quietly in bed. no c/o pain noted. patient to be npo after mn for surgery tomorrow. patient verbalizes understanding of this. pm assessment complete. patient instructed to call for assistance when needed.
[2018-12-14] MEDS: CEFTRIAXONE SOD 1 GM/NS 50 ML 50 ML IV SCH (19:30)
[2018-12-14] MEDS: DIAZEPAM 5 MG TAB PO SCH (20:21)
[2018-12-15] VITALS (9 sets, daily range): BP systolic 97–167; BP diastolic 53–74
[2018-12-15] MEDS: DEXAMETHASONE SOD PHOS INJ 4 MG/ML VIAL IV SCH ×3 (05:12→16:25)
[2018-12-15] MEDS: HYDROCODONE/APAP 7.5MG-325MG 1 EA TAB PO SCH (05:13)
[2018-12-15] MEDS ORDERED: BUPIVACAINE 0.5%/EPI 30 ML SDV INJ ONE (06:25)
[2018-12-15] MEDS ORDERED: GELATIN SPONGE 12-7MM ONE (06:26)
[2018-12-15] MEDS ORDERED: BACITRACIN 50,000 UNIT VIAL ONE (06:26)
[2018-12-15] MEDS ORDERED: THROMBIN FOR SOLN 5,000 UNIT VIAL ONE (06:26)
[2018-12-15 06:28] LABS: BASOPHILS % 0.1 % (0.0-1.0); HEMOGLOBIN 13.9 g/dL (12.0-16.0); LYMPHOCYTES # (AUTO) 1.7 (1.0-3.2); LYMPHOCYTES % 13.2 % (18.0-39.1); MEAN CORPUSCULAR HEMOGLOBIN 29.8 pg (28-32); MEAN CORPUSCULAR HGB CONC 33.9 g/dL (31-35); MONOCYTES # (AUTO) 0.6 (0.2-0.8); MONOCYTES % 4.6 % (4.4-11.3); NEUTROPHILS # (AUTO) 10.7 (2.1-6.9); PLATELET COUNT 309 x10e3/uL (140-360); RED BLOOD COUNT 4.66 x10e6/uL (3.6-5.1); RED CELL DISTRIBUTION WIDTH 12.7 % (11.7-14.4)
[2018-12-15 06:53] LABS: ANION GAP 12.3 mmol/L (8-16); BLOOD UREA NITROGEN 21 mg/dL (7-26); BUN/CREATININE RATIO 25 (6-25); CALCIUM 9.8 mg/dL (8.4-10.2); CARBON DIOXIDE 28 mmol/L (22-29); CHLORIDE 100 mmol/L (98-107); CREATININE, SERUM 0.85 mg/dL (0.57-1.11); EST GLOMERULAR FILTRATION RATE > 60 ML/MIN (60-); GLUCOSE 176 mg/dL (74-118); POTASSIUM 3.3 mmol/L (3.5-5.1); SODIUM 137 mmol/L (136-145)
[2018-12-15] MEDS: INSULIN REGULAR, HUMAN 100 UNIT/1 ML 3ML VIAL SQ SCH ×4 (07:30→20:25)
[2018-12-15] MEDS: METFORMIN HCL 500 MG TAB PO SCH ×2 (08:00→16:25)
[2018-12-15] MEDS ORDERED: MORPHINE SULFATE 5 MG/ML VIAL IM PRN (08:30)
[2018-12-15] MEDS ORDERED: ACETAMINOPHEN 325 MG TAB PO PRN (08:30)
[2018-12-15] MEDS ORDERED: PROMETHAZINE HCL (IM) 25 MG/ML VIAL IM PRN (08:30)
[2018-12-15] MEDS ORDERED: ZOLPIDEM TARTRATE 5 MG TAB PO PRN (08:30)
[2018-12-15] MEDS ORDERED: MAGNESIUM/ALUMINUM/SIMETHICONE 30 ML UDC PO PRN (08:30)
[2018-12-15] MEDS ORDERED: OXYCODONE/ACETAMINOPHEN 5-325 1 EACH TABLET PO PRN (08:30)
[2018-12-15] MEDS ORDERED: HYDROMORPHONE 2MG/ML 2 MG/ML ML IV PRN (08:30)
[2018-12-15] MEDS ORDERED: ONDANSETRON HCL INJ 2MG/ML 2ML 2 MG/ML VIAL IV PRN (08:30)
[2018-12-15] MEDS ORDERED: FENTANYL CITRATE/PF 100MCG/2 ML INJ ONE ×2 (09:01→18:18)
--- NOTE | 2018-12-15 10:00 | NUR ---
Received patient from PACU, Patient A/O X3, even respirations on 3LNC. Bowel sounds active, skin intact, no edema. Neck dressing dry/intact, soft collar in place. Uri hose and SCD's bilaterally. Right AC 20 gauge with LR @ 120mls/hr. Hemovac drain in place. Call light in reach, family at bedside.
--- NOTE | 2018-12-15 10:42 | Progress Note ---
DATE: SUBJECTIVE: The patient is here for paresthesias of the upper extremities, was found to have myelopathy. The patient is scheduled for surgery today with Dr. Asencio. OBJECTIVE: VITAL SIGNS: Currently, temperature is 96.2, afebrile, pulse of 57, respiration of 18, blood pressure is 132/63, pulse oximetry of 97%. HEENT: Normocephalic, atraumatic. Pupils are reactive to light and accommodation. CVS: S1 and S2 are normal. Regular rate and rhythm. ABDOMEN: Nontender and nondistended. EXTREMITIES: No clubbing, no cyanosis, no edema. NEUROLOGIC: The patient's neurological symptoms, decreased underwriting support specialist in both hands. ASSESSMENT: C3-C4 disk herniation with cord compression and cord edema. PLAN: Recommended C3-C4 ACDF today. The patient also has history of hypertension. We will continue her CV medications. Further recommendation per clinical course. The patient will have her ACDF today with Dr. Asencio. For further information, look in the chart. MD JIMMIE Islas/MODL /[id number]
[2018-12-15] MEDS: LACTATED RINGER'S 1,000 ML IV SCH ×2 (10:54→16:11)
[2018-12-15] MEDS: GABAPENTIN 300 MG CAP PO SCH ×2 (10:54→16:25)
[2018-12-15] MEDS: HYDROCHLOROTHIAZIDE 25 MG TAB PO SCH (10:54)
[2018-12-15] MEDS: CARISOPRODOL 350 MG TAB PO PRN ×3 (11:01→20:24)
[2018-12-15] MEDS: OXYCODONE/ACETAMINOPHEN 5-325 1 EACH TABLET PO PRN ×3 (11:02→20:24)
--- NOTE | 2018-12-15 13:00 | NUR ---
Patient has voided since surgery
[2018-12-15] MEDS: CEFAZOLIN SOD 1 GM/NS 50ML 50 ML IV SCH ×2 (13:21→21:14)
--- NOTE | 2018-12-15 16:39 | Operative Report ---
DATE OF PROCEDURE: 12/15/2018 SURGEON: Yordy Asencio MD CONTINUATION: The plate was screwed to the endplates of C3 and C4 with two pairs of 16 mm screws. All screws were locked and excellent construct was obtained. The wound was copiously irrigated with bacitracin solution. Meticulous hemostasis was secured. The retractor was removed. A small Hemovac drain was placed and brought out through a separate stab incision. The platysma was closed with 3-0 Vicryl sutures. The skin was closed with 4-0 Monocryl sutures in subcuticular fashion. Steri-Strips and dressing were applied. The patient was awakened, extubated, and taken to postanesthesia care unit in stable condition. No intraoperative complications were encountered. Estimated blood loss was 20 mL. No adverse SSEP or MEP changes were noted at any point in the operation. Yordy Asencio MD PP/MODL /[id number]
[2018-12-15] MEDS ORDERED: KETAMINE HCL INJ 50 MG/ML 10 ML VIAL ONE (18:18)
[2018-12-15] MEDS ORDERED: MIDAZOLAM HCL 2 MG/2 ML VIAL ONE (18:18)
[2018-12-15] MEDS ORDERED: CEFAZOLIN SOD 1 GM VIAL ONE (18:41)
[2018-12-15] MEDS ORDERED: LIDOCAINE HCL 2% LOCAL INJ 5 ML SDV VIAL INJ ONE (18:41)
[2018-12-15] MEDS ORDERED: SUCCINYLCHOLINE 200 MG/10 ML SYR ONE (18:41)
[2018-12-15] MEDS ORDERED: DEXAMETHASONE SOD PHOS INJ 4 MG/ML VIAL ONE (18:41)
[2018-12-15] MEDS ORDERED: PROPOFOL IV EMULSION 10 MG/ML 20 ML VIAL ONE (18:41)
[2018-12-15] MEDS ORDERED: ONDANSETRON HCL INJ 2MG/ML 2ML 2 MG/ML VIAL ONE (18:41)
--- NOTE | 2018-12-15 20:10 | NUR ---
REPORT TAKEN FROM AM RN.WALKING ROUNDS DONE.STABLE CONDITION.
[2018-12-15] MEDS: DIAZEPAM 5 MG TAB PO SCH (20:23)
[2018-12-15] MEDS: CEPACOL SORE THROAT LOZENGES PO PRN (20:24)
--- NOTE | 2018-12-15 22:00 | NUR ---
PAIN VOICED 04/22.PAIN MEDICATION GIVEN.VOIDED.DRESSING SITE IS DRY AND INTACT.BED ALAR ON .PHONE AND CALL LIGHT WITHIN REACH.INSTRUCTED TO CALL FOR ASSISTANCE NEEDED.
[2018-12-16] VITALS (7 sets, daily range): BP systolic 92–115; BP diastolic 50–68
[2018-12-16] MEDS: LACTATED RINGER'S 1,000 ML IV SCH ×3 (01:05→16:36)
--- NOTE | 2018-12-16 04:42 | Operative Report ---
DATE OF PROCEDURE: 12/15/2018 SURGEON: Yordy Asencio MD PREOPERATIVE DIAGNOSIS: C3-4 disk herniation with myelopathy, M50.01. POSTOPERATIVE DIAGNOSIS: C3-4 disk herniation with myelopathy, M50.01. PROCEDURES: 1. C3-4 anterior cervical diskectomy and allograft fusion, 34858. 2. Preparation of MTF corticocancellous allograft, 29095. 3. C3-4 anterior cervical plating with Synthes ZPN plate, 37752. ANESTHESIA: General. INDICATIONS: The patient is a 63-year-old woman, who has previously undergone C4-5, C5-6, and C6-7 anterior cervical diskectomy, fusion, and plating by tx in the distant past with excellent results. She now presents with a large C3-4 disk herniation with spinal cord compression and myelomalacia and myelopathy. She was taken to operating room for C3-4 anterior cervical decompression and fusion. PROCEDURE IN DETAIL: After induction of general anesthesia, the patient was placed on the operating table in supine position. The right-sided neck was prepped and draped in sterile fashion. The fluoroscopic C-arm was positioned in cross-table lateral orientation. A transverse incision was created on the right side of neck, superimposed on the C3-4 disk space as determined by fluoroscopy. The platysma was divided in line with the incision and subplatysmal dissection was carried out and avascular plane of the dissection was developed medially in sternocleidomastoid muscle and was followed medially to the carotid sheath to the anterior border of the cervical spine. The deep cervical fascia was opened and the esophagus was retracted to the left. The attachments of the longus colli muscles to the anterolateral aspects of vertebral bodies of C3 and C4 were divided. The scar overlying the previous anterior cervical plate was resected and the upper aspect of that plate was exposed. The anterior longitudinal ligament was resected. The anterior osteophytes at C3-4 were resected. [place] posts were inserted into C3 and C4 and the [place] distractor was used to distract the disk space. The anterior annulus of the disk was incised with #11 blade and the contents of the C3-4 disk were thoroughly evacuated with curettes and pituitary rongeurs under the operating microscope. The posterior osteophytes were meticulously drilled with a 2-mm cutting blade until they were completely removed. The posterior annulus of disk, a large amount of herniated disk material, and the posterior longitudinal ligament were resected layer by layer until the dura was fully exposed and decompressed. The medial aspects of the uncinate processes were resected bilaterally to ensure decompression of the corresponding C4 nerve roots. After satisfactory decompression had been achieved, the endplates were prepared for fusion. A 9 mm piece of MTF corticocancellous allograft was selected and prepared in saline and loaded onto a corresponding Synthes ZPN plate. The construct was inserted into the C3-4 disk space under distraction and fluoroscopic guidance. The distraction was released and distraction posts were removed. The plate was then screwed to the endplates of C3 and C4 with two pairs of 16 mm screws. All screw holes were drilled and tapped under lateral fluoroscopic guidance. All screws were locked with Yordy Asencio MD PP/FREDA /[id number]
[2018-12-16] MEDS: CEPACOL SORE THROAT LOZENGES PO PRN (05:25)
[2018-12-16] MEDS: OXYCODONE/ACETAMINOPHEN 5-325 1 EACH TABLET PO PRN ×3 (05:26→21:27)
[2018-12-16] MEDS: CARISOPRODOL 350 MG TAB PO PRN ×3 (05:27→21:27)
[2018-12-16] MEDS: CEFAZOLIN SOD 1 GM/NS 50ML 50 ML IV SCH (05:34)
--- NOTE | 2018-12-16 05:54 | NUR ---
Dressing changed.pt tolerated well.hemovac drain is in place.
--- NOTE | 2018-12-16 06:50 | NUR ---
REPORT GIVEN TO THE ONCOMING RN.WALKING ROUNDS DONE.STABLE CONDITION.
[2018-12-16 07:02] LABS: BASOPHILS % 0.1 % (0.0-1.0); EOSINOPHILS % 0.1 % (0.0-6.0); HEMOGLOBIN 12.8 g/dL (12.0-16.0); LYMPHOCYTES # (AUTO) 3.7 (1.0-3.2); LYMPHOCYTES % 28.2 % (18.0-39.1); MEAN CORPUSCULAR HEMOGLOBIN 29.7 pg (28-32); MEAN CORPUSCULAR HGB CONC 33.7 g/dL (31-35); MEAN CORPUSCULAR VOLUME 88.2 fL (81-99); MONOCYTES # (AUTO) 1.3 (0.2-0.8); NEUTROPHILS % 60.9 % (38.7-80.0); PLATELET COUNT 271 x10e3/uL (140-360); RED BLOOD COUNT 4.31 x10e6/uL (3.6-5.1); RED CELL DISTRIBUTION WIDTH 12.6 % (11.7-14.4)
[2018-12-16 07:16] LABS: ANION GAP 11.6 mmol/L (8-16); BLOOD UREA NITROGEN 24 mg/dL (7-26); BUN/CREATININE RATIO 29 (6-25); CALCIUM 8.9 mg/dL (8.4-10.2); CARBON DIOXIDE 29 mmol/L (22-29); CHLORIDE 104 mmol/L (98-107); CREATININE, SERUM 0.84 mg/dL (0.57-1.11); EST GLOMERULAR FILTRATION RATE > 60 ML/MIN (60-); GLUCOSE 139 mg/dL (74-118); POTASSIUM 3.6 mmol/L (3.5-5.1); SODIUM 141 mmol/L (136-145)
--- NOTE | 2018-12-16 07:19 | NUR ---
Received patient awake resting in bed at this time. No signs of distress. Call light in reach, will continue to monitor.
--- NOTE | 2018-12-16 07:44 | NUR ---
Paged Dr. Barth regarded WBC count.
[2018-12-16] MEDS ORDERED: NORCO 7.5-3251 EACH PO (07:45)
--- NOTE | 2018-12-16 08:01 | NUR ---
Patient left for xray at this time.
--- NOTE | 2018-12-16 08:01 | NUR ---
Notified Moreno Barth of patients WBC count and patient not wanting to go home today. Dr. Barth said ok for patient to stay another day.
--- NOTE | 2018-12-16 08:45 | NUR ---
Patient A/O X3, even respirations on RA. Bowel sounds active, skin intact, no edema. Neck dressing dry/intact. Soft collar in place. SCD's and Uri hose bilaterally. Hemovac drain in place at this time. Right AC 20 gauge IV SL. Patient is ambulatory with standby assist. Call light in reach, will continue to monitor.
--- NOTE | 2018-12-16 08:48 | NUR ---
Patient back from x-ray at this time.
--- NOTE | 2018-12-16 08:56 | Diagnostic Imaging Report ---
EXAM: C-SPINE 2 VIEWS AP LATERAL, SP LUMBAR AP LATERAL 2-3VWS DATE: 12/16/2018 7:00 AM INDICATION: Postoperative spinal surgery, CVA COMPARISON: None FINDINGS: Cervical spine: 3 views of the cervical spine shows C1-C6 on lateral views with partial visualization of C7 through the shoulders. Anterior cervical fusion hardware extends from C4 through C7 with interbody plugs, and apparent fusion of the vertebral bodies at C5-6. There is also separate hardware at C3-4 anteriorly. The spinal laminar line is in alignment. There is mild prevertebral soft tissue swelling anterior to C3. Lumbar spine: 3 views of the lumbar spine shows 5 lumbar type vertebrae. Lumbar body heights and disc spaces are maintained. Degenerative changes include small anterior osteophytes at L3-4 and L4-5 and facet arthrosis at these levels. No spondylolisthesis. Soft tissues unremarkable with cholecystectomy clips noted. IMPRESSION: 1. Fusion hardware from C4 through C7, with separate hardware placement at C3-4. 2. Moderate appearing degenerative changes in the lumbar spine, with small osteophytes and facet arthrosis from L3 through S1. Signed by: Dr. Catracho Huang M.D. on 12/16/2018 8:52 AM
[2018-12-16] MEDS: HYDROCHLOROTHIAZIDE 25 MG TAB PO SCH (08:59)
[2018-12-16] MEDS: METFORMIN HCL 500 MG TAB PO SCH ×2 (08:59→17:16)
[2018-12-16] MEDS: GABAPENTIN 300 MG CAP PO SCH ×2 (08:59→17:16)
[2018-12-16] MEDS: INSULIN REGULAR, HUMAN 100 UNIT/1 ML 3ML VIAL SQ SCH ×4 (09:02→21:10)
--- NOTE | 2018-12-16 10:35 | NUR ---
Removed dressing and Hemovac drain. Soft collar in place. Call light in reach, will continue to monitor.
--- NOTE | 2018-12-16 10:54 | Progress Note ---
DATE: SUBJECTIVE: The patient is status post ACDF. The patient has no complaints today. Pain is controlled. The patient has a wound VAC to the neck. Currently afebrile. OBJECTIVE: VITAL SIGNS: Temperature is 96.8, pulse of 57, respiration of 20, blood pressure is 115/68, pulse oximetry of 95%. HEENT: Normocephalic, atraumatic. NECK: The patient has a C-collar present. LUNGS: Clear to auscultation bilaterally. CVS: S1, S2 normal. ABDOMEN: Nontender and nondistended. EXTREMITIES: No clubbing, no cyanosis, no edema. NEUROLOGIC: Stable. No new neurological focal signs. LABORATORY VALUES: The patient's white count was 13,000 yesterday, hemoglobin of 13.9, neutrophil count of 81.9. Chemistries show sodium of 137, potassium of 3.3, BUN of 21, creatinine of 0.85. Microbiology; none. ASSESSMENT: 1. The patient with myelopathy, status post anterior cervical diskectomy and fusion. The patient is scheduled to go home. We will go ahead and do a CBC in the morning and a BMP in the morning to check for leukocytosis. 2. Hypertension. 3. Hyperlipidemia. The patient can be discharged home if leukocytosis resolves. We will continue with monitoring the patient as an outpatient. Follow up with Dr. Asencio in one week. MD JIMMIE Islas/MODL /[id number]
--- NOTE | 2018-12-16 17:00 | NUR ---
Assisted patient to the bathroom and back in bed. Call light in reach, no signs of distress.
[2018-12-16] MEDS: DIAZEPAM 5 MG TAB PO SCH (21:26)
[2018-12-17] VITALS: BP 104/62
[2018-12-17] MEDS: LACTATED RINGER'S 1,000 ML IV SCH (01:52)
[2018-12-17 04:00] VITALS: BP 104/62
[2018-12-17] MEDS: OXYCODONE/ACETAMINOPHEN 5-325 1 EACH TABLET PO PRN (04:09)
[2018-12-17] MEDS: CARISOPRODOL 350 MG TAB PO PRN (04:09)
--- NOTE | 2018-12-17 06:50 | NUR ---
Report given to the oncoming rn.walking rounds done.stable condition.
[2018-12-17] MEDS: INSULIN REGULAR, HUMAN 100 UNIT/1 ML 3ML VIAL SQ SCH (07:30)
[2018-12-17 08:03] VITALS: BP 109/62
[2018-12-17] MEDS: GABAPENTIN 300 MG CAP PO SCH (09:00)
[2018-12-17] MEDS: METFORMIN HCL 500 MG TAB PO SCH (09:00)
[2018-12-17] MEDS: HYDROCHLOROTHIAZIDE 25 MG TAB PO SCH (09:00)
[2018-12-17 09:47] VITALS: BP 109/62
--- NOTE | 2018-12-17 10:07 | NUR ---
Went to see patient at 0953. Patient literally on the way out to discharge. Patient states her left leg has been weak for about three months and she also has weakness in her hands. Patient showed 4/5 DF on left foot and open chain quad strength tested at 4+/5, great toe extension strength limited - could be due to RA, too. Patient was able to stand from couch on second attempt with independence and walked over to with no device and no assistance but slow jeovanny and decreased stride length. Patient states that she has a RW at home. She was slow and safe for the short distance observed. Recommended to her that if she doesn't notice an increase in strength in her hands and increase in functional strength in her left leg over the next week or so to ask Dr. Asencio for a consult to outpatient for OT and PT for strengthening. Patient pushed out of room by tech to DC. Will link this to physician., Dr. Asencio. Addendum: 12/17/18 at 1009 by Becky Jaramillo PT Amended: Links added.
--- NOTE | 2018-12-17 10:10 | NUR ---
PT WHEELED OFF UNIT VIA WC FOR DISCHARGE, NO CHANGE IN CONDITION
--- NOTE | 2018-12-17 11:41 | Progress Note ---
DATE: SUBJECTIVE: The patient is here status post ACDF for myelopathy. The patient is doing well. She had some difficulty with incontinence yesterday, but much better. No complaints. No chest pain. No shortness of breath. No nausea, vomiting, or diarrhea. Positive for some tingling in the upper extremity, but better. OBJECTIVE: VITAL SIGNS: Temperature is 96.6, pulse of 62, respirations of 18, blood pressure is 104/62, and pulse oximetry 94% on room air. HEENT: Normocephalic, atraumatic. Positive for C-collar. CV: S1, S2 normal. Regular rate and rhythm. ABDOMEN: Nontender, nondistended. EXTREMITIES: No clubbing, no cyanosis, and no edema. NEUROLOGIC: No new focal neurological changes. ASSESSMENT: 1. Myelopathy. The patient is status post anterior cervical discectomy and fusion, doing well. 2. Leukocytosis, better. 3. Hypertension. Continue CV medications. 4. Hyperlipidemia. Continue with hyperlipidemic agents. PLAN: The patient is to follow up with Dr. Asencio in about a week's time. Further recommendation per clinical course as an outpatient, and can be discharged today. MD JIMMIE Islas/FREDA /[id number]
== END 2018-12-17 09:58 | disposition home or self-care (01) | DRG 472 ==
LOC: ER 14:33 → ERHOLD 17:19 → IMCU 20:43 → OBSVTOIN 12-13 09:29 → MED/SURG3 12-13 16:01 → MED/SURG 12-15 09:44
PROVIDERS: ADMIT Family Medicine; ATTEND Family Medicine
PROC: 0RT30ZZ Resection of Cervical Vertebral Disc, Open Approach (ICD-10-PCS; principal; 2018-12-13)
PROC: 0RG10A0 Fusion of Cervical Vertebral Joint with Interbody Fusion Device, Anterior Approach, Anterior Column, Open Approach (ICD-10-PCS; 2018-12-13)
PROC: 00NW0ZZ Release Cervical Spinal Cord, Open Approach (ICD-10-PCS; 2018-12-13)
DX: M50.01 Cervical disc disorder with myelopathy, high cervical region (principal); N39.0 Urinary tract infection, site not specified; E11.42 Type 2 diabetes mellitus with diabetic polyneuropathy; Z79.4 Long term (current) use of insulin; D72.829 Elevated white blood cell count, unspecified; I10 Essential (primary) hypertension; E78.5 Hyperlipidemia, unspecified; Z79.899 Other long term (current) drug therapy; Z79.84 Long term (current) use of oral hypoglycemic drugs; I65.22 Occlusion and stenosis of left carotid artery
CPT/HCPCS: 36415; 70450; 70551; 72040; 72100; 72141; 80048; 80053; 80061; 81001; 82550; 82553; 82948; 84484; 85025; 88304; 93306; 93880; 97139; 99284; C1713; C9359; G0378; J0690; J0696; J1100; J2001; J2250; J2405; J7050; J7121

== ENCOUNTER 2018-12-27 12:52 | Emergency (ER) | payer MEDICARE ==
[~2018-12-27] VITALS: Ht 157.5 cm; Wt 77.1 kg
[~2018-12-27 12:52] MED LIST changes: +GABAPENTIN300 MG PO; +HYDROCHLOROTHIA25 MG PO; +METFORMIN HCL500 MG PO; +VALIUM5 MG PO
--- OUTSIDE RECORDS SUMMARY | 2018-12-27 12:56 | XMS REPORT | Clinical Summary ---
Author Author KAILASH [facility] Address Unknown Phone Unavailable Care Team Providers Care Garment Liner Name Role Phone Liban Mooney PCP Allergies [...] medication. Currently, symptoms are being managed with [place]. She will be following up with [facility] Rheumatology in April 2018. Fatty [...] DPM 03/12/2018 Hospital Pre-Admission Testing Encounter after 12/26/2017 Family History Medical History Relation Name Comments [...] Body Mass Index 32.14 Plan of Treatment Not on file Implants Device Identifier Shelf Expiration Date Model / Serial / Lot Implanted Type Area Manufactur er 06/20/2018 NC-1001 / / [id number] Tissue Nucell Med W/Matrix Nc-1001 Tissue [employer] - [id number] Graft/Subs Implanted: Qty: 1 on 04/07/2018 by Antonio Tristan DPM 08/31/2022 NO-[id number] / [id number] / [facility] Right: Toe [employer] Implanted: Qty: [...] 04/03/2018 Abnormal liver enzymes 12:25 PM CDT [id number]\\, Routine 04/03/2018 Abnormal liver enzymes SERUM 12:25 [...] TISSUE EXTREMITY LOWER 9:30 AM CDT after 12/26/2017 Results * MR abdomen with/without IV contrast (04/21/2018 1:54 PM CDT) Narrative Performed At FINAL REPORT [facility] MRI of the abdomen with and without [...] MD Report Verified Date/Time:04/21/2018 18:38:48 Reading Location: [facility] [id number] [facility] Consult Reading Room Procedure Note Interface, External [...] Report Verified Date/Time: 04/21/2018 18:38:48 Reading Location: [address] Consult Reading Room Performing Organization Address [facility] Phone Number GE RIS * POC-Creatinine (04/21/2018 1:27 PM CDT) POC-Creatinine 0.7Comment: [facility] 0.6 - 1.3 mg/dL [address] POC-EGFR 84 mL/min/1.73M2 [facility] Specimen Blood Performing Organization Address [facility] Phone Number [address] [address] [facility] * Hepatitis A antibody, IgG (04/03/2018 12:25 PM CDT) Hep A IgG Nonreactive Nonreactive [facility] Specimen Blood Performing Organization Address [facility] [place] [address] [facility] * Mitochondrial Antibodies, M2 (04/03/2018 12:25 PM CDT) Mitochondria M2 Ab <20.0 See Note: U [facility] Comment: INCORPORATED Reference Range: NEGATIVE:< OR=20.0 EQUIVOCAL: 20.1-24.9 POSITIVE:> OR=25.0 Specimen Blood Narrative Performed At Performing Lab [facility] [address] [place] [address] I Jacoby LLOYD, PhD, ZENAIDA Performing Organization Address City/[facility] Cent[facility]ode Phone Number [facility], [address] [place], [place] [employer] [address] [address] * Iron, TIBC, % sat. (without ferritin) (04/03/2018 12:25 PM CDT) Iron 124 40 - 160 ug/dL [facility] TIBC 355 250 - 450 ug/dL [facility] Iron % Saturation 35 20 - 55 % [facility] Specimen Blood Performing Organization Address [facility] Cent[facility]ode Phone Number [facility] [address] [place] [address] [facility] * CBC with platelet count + automated diff (04/03/2018 12:25 PM CDT) WBC 7.2 3.5 - 10.5 K/L [facility] RBC 4.58 3.93 - 5.22 M/L [facility] Hemoglobin 13.8 11.2 - 15.7 GM/DL [facility] Hematocrit 41.7 34.1 - 44.9 % [facility] MCV 91.0 79.4 - 94.[address] [facility] MCH 30.1 25.6 - 32.[address] [facility] MCHC 33.1 32.2 - 35.5 GM/DL [facility] RDW 12.4 11.7 - 14.4 % [facility] Platelets 268 150 - 450 K/CU MM [facility] MPV 9.8 9.4 - 12.[address] [facility] nRBC 0 0 - 0 /[address] [facility] % Neutros 58 % [facility] % Lymphs 32 % [facility] % Monos 7 % [facility] % Eos 2 % [facility] % Baso 0 % [facility] # Neutros 4.19 1.56 - 6.13 K/L [facility] # Lymphs 2.31 1.18 - 3.74 K/L [facility] # Monos 0.50 (H) 0.24 - 0.36 K/L [facility] # Eos 0.14 0.04 - 0.36 K/L [facility] # Baso 0.02 0.01 - 0.08 K/L [facility] Immature 0 0 - 1 % [facility] Granulocytes-Relative [facility] Specimen Blood Performing Organization Address City/[facility]/Zipcode Phone Number [place] [phone] * Hepatitis C antibody (04/03/2018 12:25 PM CDT) Hepatitis C Ab NON-REACTIVE Nonreactive [facility] Specimen Blood Performing Organization Address City/[facility]/Zipcode Phone Number [address] [address] [phone] * Actin (Smooth Muscle) Antibody, IgG (04/03/2018 [...] Lab [facility] [address] [address] Oleksandr Dozier MD, PhD, ZENAIDA Performing Organization Address City/[facility] Cent[facility]ode Phone Number [facility], [address] [place], [place] [facility] [address] * Lnhfc-8-Nufiyzafiqy (04/03/2018 12:25 PM CDT) A-1 Antitrypsin 156.90 90.00 - 200.00 mg/dL [facility] Specimen Blood Performing Organization Address [facility] Cent[facility]ode Phone Number [address] * Hepatitis A antibody, IgM (04/03/2018 12:25 PM CDT) Hep A IgM HEPATITIS A TEST NEGATIVE Nonreactive [facility] Specimen Blood Performing Organization Address [facility] Cent[facility]ode Phone Number [address] * DOLORES Titer & Pattern (04/03/2018 12:25 PM CDT) DOLORES Titer 1:160 [facility] DOLORES Pattern Nucleolar [facility] Specimen Blood Performing Organization Address [facility] Phone Number [address] * Ceruloplasmin (04/03/2018 12:25 PM CDT) Ceruloplasmin 30 18 - 53 mg/dL [facility] Comment: INCORPORATED Adults:Males: 18-36 mg/dL Fe males: 18-53 mg/dL Pediatrics: Males (mg/dL)Females (mg/dL) ------ 0-30 Days 8-25 3-28 31 Days-11 Month 15-481 5-43 1-3 Years2 5 -54 4-6 Years2 -54 7-9 Years2 -48 10-12 Jevys00-58 21-48 13-15 Gzdkn25-99 21-46 16-18 Otzce46-14 22-50 The pediatric ranges are derived from the following criteria: Yon CHRISTY, Damein DON, Criss J et al Pediatric reference ranges for Dzsc-2-Swoeflujbvysc and ceruloplasmin. Clin. Chem 1997; 43:S1999 Pediatric Reference Ranges, 2nd., [place] Yon,et al. editors. [employer], [place], [place] 1997. Specimen Blood Narrative Performed At Performing Lab [facility] *[facility] [place] [facility], [address] [place] [address] Adalgisa Barbosa MD, PhD Performing Organization Address City/[facility] Cent[facility]ode Phone Number [facility], [address] [facility] [address] * Alpha fetoprotein (AFP), tumor marker (04/03/2018 12:25 PM CDT) Alpha-Fetoprotein 3.0 <10.0 ng/mL [facility] Specimen Blood Performing Organization Address [facility] Cent[facility]ode Phone Number [address] * Hepatitis B core antibody, total (04/03/2018 12:25 PM CDT) Hep B Core Total Ab NON-REACTIVE Nonreactive [facility] Specimen Blood Performing Organization Address [facility] Cent[facility]ode Phone Number [phone] [place] [address] * Hepatitis B surface antibody (04/03/2018 12:25 PM CDT) Hep B S Ab <8.0 <8.0 mIU/mL [facility] Specimen Blood Performing Organization Address [facility] Cent[facility]ode Phone Number [facility] [address] [facility] * Hepatitis B surface antigen (04/03/2018 12:25 PM CDT) hepatitis B Surface Ag NON-REACTIVE Nonreactive [facility] Specimen Blood Performing Organization Address City/[facility]/Zipcode Phone Number [address] [address] [phone] [place] [address] * Pro-time/INR (04/03/2018 12:25 PM CDT) Protime 13.1 11.7 - 14.[address] [facility] INR 1.[address] <=[address]9 [facility] Specimen Blood Narrative Performed At RECOMMENDED COUMADIN/WARFARIN INR THERAPY RANGES [facility] STANDARD DOSE: 2.0 - 3.0 Includes: PROPHYLAXIS for venous thrombosis, [facility] systemic embolization; TREATMENT for venous thrombosis and/or pulmonary embolus. HIGH RISK: Target INR is 2.5-3.5 for patients with mechanical heart valves. Performing Organization Address [facility] Cent[facility]ode Phone Number [address] [address] [phone] [place] [address] * Anti-Nuclear Antibody (DOLORES) (04/03/2018 12:25 PM CDT) DOLORES Positive (A) Negative [facility] Specimen Blood Performing Organization Address City/[facility] Cent[facility] Phone Number [address] [address] [phone] [place] [address] * Ferritin (04/03/2018 12:25 PM CDT) Ferritin 166 5 - 275 ng/mL [facility] Specimen Blood Performing Organization Address [facility] Cent[facility]ode Phone Number [address] [address] [phone] [place] [address] * Bilirubin, direct (04/03/2018 12:25 PM CDT) Bilirubin, Direct 0.3 0.1 - 0.5 mg/dL [facility] Specimen Blood Performing Organization Address City/State/Zipcode Phone Number [facility] [address] [place] [address] [facility] * Comprehensive Metabolic Panel (04/03/2018 12:25 PM CDT) Protein, Total 7.8 6.0 - 8.3 gm/dL [facility] Albumin 4.5 3.5 - 5.0 g/dL [facility] Alkaline Phosphatase 92 40 - 150 U/L [facility] Total Bilirubin 0.8 0.2 - 1.2 mg/dL [facility] Sodium 142 136 - 145 meq/L [facility] Potassium 3.7 3.5 - 5.1 meq/L [facility] Chloride 106 98 - 107 meq/L [facility] CO2 24 22 - 29 meq/L [facility] BUN 14 7 - 21 mg/dL [facility] Creatinine 0.84 0.57 - 1.25 mg/dL [facility] Glucose 118 (H) 70 - 105 mg/dL [facility] Calcium 9.9 8.4 - 10.2 mg/dL [facility] AST 23 5 - 34 U/L [facility] ALT 44 6 - 55 U/L [facility] EGFR 68Comment: ESTIMATED GFR IS mL/min/1.73 sq m [facility] NOT ACCURATE CREATININE [facility] CLEARANCE IN PREDICTING GLOMERULAR FILTRATION RATE. ESTIMATED GFR IS NOT APPLICABLE FOR DIALYSIS PATIENTS. Specimen Blood Performing Organization Address City/State/Zipcode Phone Number [facility] [address] [place] [address] [facility] * Tissue Exam (03/21/2018 10:33 AM CDT) Case Report Surgical Pathology [facility] Case: [id number] Authorizing Provider:Antonio Jones DPMCollected: 03/21/2018 1033 Ordering Location: [facility] PERIOPERATIVE Received: 03/21/2018 1134 SERVICES Pathologist: Rochelle Vela MD Specimen:Foot, Right, soft tissue mass from right great toe DIAGNOSIS SKIN, RIGHT GREAT TOE, [facility] EXCISION: [facility] - DIGITAL MUCOUS CYST - NEGATIVE FOR MALIGNANCY Signing Pathologist Direct Phone Line: [phone] CPT Code(s) [address] [facility] CLINICAL HISTORY Soft tissue mass right great [facility] toe [facility] SPECIMEN SOURCE Soft tissue mass right great [facility] toe [facility] GROSS DESCRIPTION Received in formalin labeled [facility] "foot, right", description [facility] "soft tissue mass right great toe" [...] in cassette A1. DB/pl MICROSCOPIC DESCRIPTION PERFORMED [facility] Specimen Tissue - Foot, Right Performing Organization Address City/State/Zipcode Phone Number [facility] [address] [place], [place] [phone] [facility] after 12/26/2017 Insurance Payer Benefit Subscriber ID Type Phone Address Plan / Group MEDICARE MEDICARE A xxxxxxxxxxx Medicare B
[2018-12-27] MEDS ORDERED: INDOMETHACIN 25 MG CAP PO ONE (14:30)
[2018-12-27] MEDS ORDERED: DEXAMETHASONE SOD PHOS 10 MG/1 ML VIAL IM ONE (14:30)
[2018-12-27] MEDS ORDERED: HYDROCODONE/APAP 10MG-325MG TAB PO ONE (14:30)
[2018-12-27 15:06] VITALS: BP 123/66
--- NOTE | 2018-12-27 15:14 | Diagnostic Imaging Report ---
WRIST COMPLETE RIGHT - 3 views HISTORY: Pain COMPARISON: None available. FINDINGS: Bones: No acute displaced fracture. Osseous alignment is within normal limits. Joints: Mild radiocarpal joint space. Soft tissues: The soft tissues appear unremarkable. IMPRESSION: No acute fracture or dislocation of the right wrist. Signed by: Dr. Cristóbal Castillo MD on 12/27/2018 3:11 PM
== END 2018-12-27 15:16 | disposition home or self-care (01) ==
LOC: ER 12:52
DX: M25.531 Pain in right wrist (principal); I10 Essential (primary) hypertension; E11.9 Type 2 diabetes mellitus without complications; F41.9 Anxiety disorder, unspecified; Z85.828 Personal history of other malignant neoplasm of skin
CPT/HCPCS: 73110; 99283; J1100

== ENCOUNTER 2018-12-31 16:22 | Inpatient (IN) | payer MEDICARE ==
[~2018-12-31] VITALS: Ht 157.5 cm; Wt 74.8 kg
--- OUTSIDE RECORDS SUMMARY | 2018-12-31 16:27 | XMS REPORT | Clinical Summary ---
Author Author KAILASH [facility] Address Unknown Phone Unavailable Care Team Providers Care Advertising Copywriter Name Role Phone Liban Mooney PCP Allergies [...] medication. Currently, symptoms are being managed with [place]. She will be following up with [facility] Rheumatology in April 2018. Fatty [...] DPM 03/12/2018 Hospital Pre-Admission Testing Encounter after 12/30/2017 Family History Medical History Relation Name Comments [...] Area Manufactur er 06/20/2018 NC-1001 / / [id number] Tissue [employer]uc[employer] Med W/Matrix Nc-1001 Tissue [employer] - [id number] Graft/Subs Implanted: Qty: 1 on 04/07/2018 by Antonio Tristan DPM 08/31/2022 [id number] / [id number] / [facility] Right: Toe [employer] Implanted: Qty: [...] 04/03/2018 Abnormal liver enzymes 12:25 PM CDT [id number]\\, Routine 04/03/2018 Abnormal liver enzymes SERUM 12:25 [...] TISSUE EXTREMITY LOWER 9:30 AM CDT after 12/30/2017 Results * MR abdomen with/without IV contrast (04/21/2018 1:54 PM CDT) Narrative Performed At FINAL REPORT [facility] [employer] [facility] MRI of the abdomen with and without [...] MD Report Verified Date/Time:04/21/2018 18:38:48 Reading Location: [facility] [id number] [facility] Consult Reading Room Procedure Note [...] Report Verified Date/Time: 04/21/2018 18:38:48 Reading Location: [address] Consult Reading Room Performing Organization Address [facility] Phone Number GE RIS * POC-Creatinine (04/21/2018 1:27 PM CDT) POC-Creatinine 0.7Comment: [facility] 0.6 - 1.3 mg/dL [address] POC-EGFR 84 mL/min/1.73M2 [facility] Specimen Blood Performing Organization Address [facility] Phone Number [address] [address] [facility] * Hepatitis A antibody, IgG (04/03/2018 12:25 PM CDT) Hep A IgG Nonreactive Nonreactive [facility] Specimen Blood Performing Organization Address [facility] [place] [address] [facility] * Mitochondrial Antibodies, M2 (04/03/2018 12:25 PM CDT) Mitochondria M2 Ab <20.0 See Note: U [facility] Comment: INCORPORATED Reference Range: NEGATIVE:< OR=20.0 EQUIVOCAL: 20.1-24.9 POSITIVE:> OR=25.0 Specimen Blood Narrative Performed At Performing Lab [facility] EZ [facility] [address] [place] [address] I Jacoby LLOYD, PhD, ZENAIDA Performing Organization Address City/[facility] Phone Number [facility], [address] [place], [place] [facility] [address] * Iron, TIBC, % sat. (without ferritin) (04/03/2018 12:25 PM CDT) Iron 124 40 - 160 ug/dL [facility] TIBC 355 250 - 450 ug/dL [facility] Iron % Saturation 35 20 - 55 % [facility] Specimen Blood Performing Organization Address [facility] Phone Number [facility] [address] [place] [address] [facility] * CBC with platelet count + automated diff (04/03/2018 12:25 PM CDT) WBC 7.2 3.5 - 10.5 K/L [facility] RBC 4.58 3.93 - 5.22 M/L [facility] Hemoglobin 13.8 11.2 - 15.7 GM/DL [facility] Hematocrit 41.7 34.1 - 44.9 % [facility] MCV 91.0 79.4 - 94.8 fL [facility] MCH 30.1 25.6 - 32.2 pg [facility] MCHC 33.1 32.2 - 35.5 GM/DL [facility] RDW 12.4 11.7 - 14.4 % [facility] Platelets 268 150 - 450 K/CU MM [facility] MPV 9.8 9.4 - 12.3 fL [facility] nRBC 0 0 - 0 /100 WBC [facility] % Neutros 58 % [facility] % Lymphs 32 % [facility] % Monos 7 % [facility] % Eos 2 % [facility] % Baso 0 % [facility] # Neutros 4.19 1.56 - 6.13 K/L [facility] # Lymphs 2.31 1.18 - 3.74 K/L [facility] # Monos 0.50 (H) 0.24 - 0.36 K/L [facility] # Eos 0.14 0.04 - 0.36 K/L [facility] # Baso 0.02 0.01 - 0.08 K/L [facility] Immature 0 0 - 1 % [facility] Granulocytes-Relative [facility] Specimen Blood Performing Organization Address City/[facility]/Zipcode Phone Number [place] [phone] * Hepatitis C antibody (04/03/2018 12:25 PM CDT) Hepatitis C Ab NON-REACTIVE Nonreactive [facility] Specimen Blood Performing Organization Address City/[facility]/Zipcode Phone Number [address] [address] [phone] * Actin (Smooth Muscle) Antibody, IgG [...] Lab [facility] [address] [address] Oleksandr Dozier MD, PhD, ZENAIDA Performing Organization Address City/[facility] Phone Number [facility], [address] [place] [facility] [facility] [address] * Kakvz-4-Qalgixqngvf (04/03/2018 12:25 PM CDT) A-1 Antitrypsin 156.90 90.00 - 200.00 mg/dL [facility] Specimen Blood Performing Organization Address [facility] Phone Number [address] * Hepatitis A antibody, IgM (04/03/2018 12:25 PM CDT) Hep A IgM HEPATITIS A TEST NEGATIVE Nonreactive [facility] Specimen Blood Performing Organization Address [facility] Phone Number [address] * DOLORES Titer & Pattern (04/03/2018 12:25 PM CDT) DOLORES Titer 1:160 [facility] DOLORES Pattern Nucleolar [facility] Specimen Blood Performing Organization Address [facility] Phone Number [address] * Ceruloplasmin (04/03/2018 12:25 PM CDT) Ceruloplasmin 30 18 - 53 mg/dL [facility] Comment: INCORPORATED Adults:Males: 18-36 mg/dL Fe males: 18-53 mg/dL Pediatrics: Males (mg/dL)Females (mg/dL) ------ 0-30 Days 8-25 3-28 31 Days-11 Month 15-481 5-43 1-3 Years2 5 -54 4-6 Years2 -54 7-9 Years2 -48 10-12 Wjqna30-96 21-48 13-15 Ypqfa50-13 21-46 16-18 Pkpty51-08 22-50 The pediatric ranges are derived from the following criteria: Yon CHRISTY, Damien DON, Criss J et al Pediatric reference ranges for Iqbb-4-Mlbdvnmwafcht and ceruloplasmin. Clin. Chem 1997; 43:S1999 Pediatric Reference Ranges, 2nd., [place] Yon,et al. editors. [employer], [place], [place] 1997. Specimen Blood Narrative Performed At Performing Lab [facility] *[facility] Web and [employer] [facility] [facility], [address] [place] [address] Adalgisa Barbosa MD, PhD Performing Organization Address City/[facility] Phone Number [facility], [address] [facility] [address] * Alpha fetoprotein (AFP), tumor marker (04/03/2018 12:25 PM CDT) Alpha-Fetoprotein 3.0 <10.0 ng/mL [facility] Specimen Blood Performing Organization Address [facility] Phone Number [address] * Hepatitis B core antibody, total (04/03/2018 12:25 PM CDT) Hep B Core Total Ab NON-REACTIVE Nonreactive [facility] Specimen Blood Performing Organization Address [facility] Phone Number [phone] [place] [address] * Hepatitis B surface antibody (04/03/2018 12:25 PM CDT) Hep B S Ab <8.0 <8.0 mIU/mL [facility] Specimen Blood Performing Organization Address [facility] Phone Number [facility] [address] [facility] * Hepatitis B surface antigen (04/03/2018 12:25 PM CDT) hepatitis B Surface Ag NON-REACTIVE Nonreactive [facility] Specimen Blood Performing Organization Address City/[facility]/Zipcode Phone Number [address] [address] [phone] [place] [address] * Pro-time/INR (04/03/2018 12:25 PM CDT) Protime 13.1 11.7 - 14.7 seconds [facility] INR 1.0 <=5.9 [facility] Specimen Blood Narrative Performed At RECOMMENDED COUMADIN/WARFARIN INR THERAPY RANGES [facility] STANDARD DOSE: 2.0 - 3.0 Includes: PROPHYLAXIS for venous thrombosis, [facility] systemic embolization; TREATMENT for venous thrombosis and/or pulmonary embolus. HIGH RISK: Target INR is 2.5-3.5 for patients with mechanical heart valves. Performing Organization Address [facility] Phone Number [address] [address] [phone] [place] [address] * Anti-Nuclear Antibody (DOLORES) (04/03/2018 12:25 PM CDT) DOLORES Positive (A) Negative [facility] Specimen Blood Performing Organization Address City/[facility] Phone Number [address] [address] [phone] [place] [address] * Ferritin (04/03/2018 12:25 PM CDT) Ferritin 166 5 - 275 ng/mL [facility] Specimen Blood Performing Organization Address [facility] Phone Number [address] [address] [phone] [place] [address] * Bilirubin, direct (04/03/2018 12:25 PM CDT) Bilirubin, Direct 0.3 0.1 - 0.5 mg/dL [facility] Specimen Blood Performing Organization Address City/State/Zipcode Phone Number [facility] [address] [place] [address] [facility] * Comprehensive Metabolic Panel (04/03/2018 12:25 PM CDT) Protein, Total 7.8 6.0 - 8.3 gm/dL [facility] Albumin 4.5 3.5 - 5.0 g/dL [facility] Alkaline Phosphatase 92 40 - 150 U/L [facility] Total Bilirubin 0.8 0.2 - 1.2 mg/dL [facility] Sodium 142 136 - 145 meq/L [facility] Potassium 3.7 3.5 - 5.1 meq/L [facility] Chloride 106 98 - 107 meq/L [facility] CO2 24 22 - 29 meq/L [facility] BUN 14 7 - 21 mg/dL [facility] Creatinine 0.84 0.57 - 1.25 mg/dL [facility] Glucose 118 (H) 70 - 105 mg/dL [facility] Calcium 9.9 8.4 - 10.2 mg/dL [facility] AST 23 5 - 34 U/L [facility] ALT 44 6 - 55 U/L [facility] EGFR 68Comment: ESTIMATED GFR IS mL/min/1.73 sq m [facility] NOT ACCURATE CREATININE [facility] CLEARANCE IN PREDICTING GLOMERULAR FILTRATION RATE. ESTIMATED GFR IS NOT APPLICABLE FOR DIALYSIS PATIENTS. Specimen Blood Performing Organization Address City/State/Zipcode Phone Number [facility] [address] [place] [address] [facility] * Tissue Exam (03/21/2018 10:33 AM CDT) Case Report Surgical Pathology [facility] Case: [id number] Authorizing Provider:Antonio Jones DPMCollected: 03/21/2018 1033 Ordering Location: [facility] PERI[facility] Received: 03/21/2018 1134 SERVICES Pathologist: Rochelle Vela MD Specimen:Foot, Right, soft tissue mass from right great toe DIAGNOSIS SKIN, RIGHT GREAT TOE, [facility] EXCISION: [facility] - DIGITAL MUCOUS CYST - NEGATIVE FOR MALIGNANCY Signing Pathologist Direct Phone Line: [phone] CPT Code(s) 21090 [facility] CLINICAL HISTORY Soft tissue mass right great [facility] toe [facility] SPECIMEN SOURCE Soft tissue mass right great [facility] toe [facility] GROSS DESCRIPTION Received in formalin labeled [facility] "foot, right", description [facility] "soft tissue mass right great toe" is [...] in cassette A1. DB/pl MICROSCOPIC DESCRIPTION PERFORMED [facility] Specimen Tissue - Foot, Right Performing Organization Address City/State/Zipcode Phone Number [facility] [address] [place], [place] [id number] [facility] after 12/30/2017 Insurance Payer Benefit Subscriber ID Type Phone Address Plan / Group MEDICARE MEDICARE A xxxxxxxxxxx Medicare B
[2018-12-31 16:48] LABS: BASOPHILS % 0.1 % (0.0-1.0); EOSINOPHILS % 0.2 % (0.0-6.0); HEMATOCRIT 38.7 % (34.2-44.1); HEMOGLOBIN 12.9 g/dL (12.0-16.0); LYMPHOCYTES # (AUTO) 4.1 (1.0-3.2); MEAN CORPUSCULAR HEMOGLOBIN 29.6 pg (28-32); MEAN CORPUSCULAR HGB CONC 33.3 g/dL (31-35); MEAN CORPUSCULAR VOLUME 88.8 fL (81-99); MONOCYTES # (AUTO) 1.2 (0.2-0.8); MONOCYTES % 8.1 % (4.4-11.3); NEUTROPHILS # (AUTO) 9.2 (2.1-6.9); NEUTROPHILS % 62.8 % (38.7-80.0); PLATELET COUNT 394 x10e3/uL (140-360); RED BLOOD COUNT 4.36 x10e6/uL (3.6-5.1); RED CELL DISTRIBUTION WIDTH 12.3 % (11.7-14.4)
[2018-12-31 16:57] LABS: INR 0.89; PROTHROMBIN TIME 12.5 seconds (11.9-14.5)
[2018-12-31 17:05] LABS: ALBUMIN 3.6 g/dL (3.5-5.0); ALBUMIN/GLOBULIN RATIO 0.9 (0.8-2.0); ANION GAP 15.9 mmol/L (8-16); CALCIUM 9.6 mg/dL (8.4-10.2)
[2018-12-31 17:08] LABS: POTASSIUM 2.9 mmol/L (3.5-5.1)
[2018-12-31 17:29] LABS: CREATINE KINASE MB 1.5 ng/mL (0-5.0)
[2018-12-31] MEDS ORDERED: SODIUM CHLORIDE 0.9% 1000ML 1,000 ML IV SCH (17:30)
--- NOTE | 2018-12-31 18:50 | Diagnostic Imaging Report ---
CT CHEST WITH CONTRAST HISTORY: PE protocol. + DVT with SOB COMPARISON: None available. TECHNIQUE: CT scan of the chest WITH intravenous contrast, using PE protocol. The chest was scanned utilizing a multidetector helical scanner from the lung apex through the level of the adrenal glands. Thin section reconstructions were obtained with special concentration on the pulmonary arteries. IV CONTRAST: 70 cc of Isovue-370. PROTOCOL: PE RADIATION DOSE: Total DLP: 507.47 mGy*cm Dose modulation, iterative reconstruction, and/or weight based adjustment of the mA/kV was utilized to reduce the radiation dose to as low as reasonably achievable. COMPLICATIONS: None DISCUSSION: Beam [place] artifact secondary to dense contrast within the left brachiocephalic vein and superior vena cava. Lungs: Low lung volumes result in bibasilar vascular crowding, accentuation of the pulmonary interstitial markings, central pulmonary vasculature, and the cardiac silhouette. Allowing for these limitations, the findings are as follows: Bilateral atelectasis. Heterogeneous lung density may reflect a component of air trapping. No consolidative pneumonia. Vessels: Filling defects within segmental and subsegmental arteries of the left lower lobe. Airways: The major airways are clear. Pleura: No pleural effusion or pneumothorax. Heart and mediastinum: Mild flattening of the interventricular septum and borderline dilation of the right ventricle. Abdomen: Limited evaluation of the upper abdomen. Diffusely decreased attenuation of the liver. A 9 mm low-density lesion within the body of the pancreas. Metallic clips in the right upper quadrant of the abdomen are compatible with prior cholecystectomy. Lymph nodes: No pathologically enlarged lymph node. Bones: No acute bone abnormality. Soft tissues: Unremarkable IMPRESSION: 1. Pulmonary emboli within segmental and subsegmental arteries of the left lower lobe. Suggestive of associated mild right heart strain. 2. Hepatic steatosis. 3. Incidentally noted low density subcentimeter lesion within the body of the pancreas. Resolution of the acute process, recommend a follow-up nonemergent MRI of the abdomen with and without contrast (MRCP) for further characterization. Discussed with Dr. Harris via phone on December 31, 2018 at 1845. The provider verbalizes an understanding. Signed by: Dr. Steve Barrett D.O., M.M.M. on 12/31/2018 6:47 PM
[2018-12-31] MEDS ORDERED: ONDANSETRON HCL INJ 2MG/ML 2ML 2 MG/ML VIAL IV ONE (19:15)
[2018-12-31] MEDS ORDERED: MORPHINE SULFATE 2 MG/ML SYR 1ML IV STA (19:15)
--- NOTE | 2018-12-31 19:15 | NUR ---
assumed care and spoke to dr raza regarding plan for potassium replacement and blood clot interventions. dr raza to put in orders
--- NOTE | 2018-12-31 19:23 | NUR ---
WALKING ROUND DONE WITH DAGOBERTO FLOREZ PER GAUTAM HE WOULD UPDATE VITALS
[2018-12-31] MEDS ORDERED: HYDROMORPHONE 1MG/1ML INJ IV PRN (19:30)
[2018-12-31] MEDS ORDERED: MORPHINE SULFATE INJ 4 MG/ML INJ 1ML IV ONE (19:30)
[2018-12-31] MEDS ORDERED: DEXTROSE 50% SYRINGE 50 ML IV PRN (19:30)
[2018-12-31] MEDS ORDERED: HEPARIN SOD (PORCINE) 5,000 UNIT/ML VIAL IV ONE (19:30)
[2018-12-31] MEDS ORDERED: POTASSIUM CHLORIDE 20 MEQ TAB CR PO ONE ×2 (19:45→20:00)
[2018-12-31] MEDS ORDERED: POTASSIUM CHLORIDE 10MEQ/100ML 100 ML IV SCH (20:00)
--- NOTE | 2018-12-31 20:06 | NUR ---
priscilla-pharmacist, was called and and verified dosage initial bolus and initial heparin drip per hospital protocol step 4.
[2018-12-31] MEDS ORDERED: HEPARIN 25000UNITS/0.45% NS 250 ML BAG IV ONE (20:17)
[2018-12-31] MEDS: HEPARIN 25,000U/0.45% NS 250ML 1,100 UNIT in Premix Bag 250 ML IV SCH (20:20)
--- OUTSIDE RECORDS SUMMARY | 2018-12-31 21:22 | XMS REPORT | Clinical Summary ---
Author Author KAILASH [facility] Address Unknown Phone Unavailable Care Team Providers Care Sas Programmer Name Role Phone Liban Mooney PCP Allergies [...] medication. Currently, symptoms are being managed with [place]. She will be following up with [facility] Rheumatology in April 2018. Fatty [...] Area Manufactur er 06/20/2018 NC-1001 / / [id number] Tissue Nucell Med W/Matrix Nc-1001 Tissue NUTECH [employer] - [id number] Graft/Subs Implanted: Qty: 1 on 04/07/2018 by Antonio Tristan DPM 08/31/2022 [id number] / [id number] / [facility] Right: Toe [employer] Implanted: Qty: [...] 04/03/2018 Abnormal liver enzymes 12:25 PM CDT [id number]\\, Routine 04/03/2018 Abnormal liver enzymes SERUM 12:25 [...] PM CDT) Narrative Performed At FINAL REPORT [employer] MRI of the abdomen with and without [...] MD Report Verified Date/Time:04/21/2018 18:38:48 Reading Location: [facility] C013X [facility] Consult Reading Room Procedure Note Interface, External [...] Report Verified Date/Time: 04/21/2018 18:38:48 Reading Location: [address] Consult Reading Room Performing Organization Address [facility] Phone Number GE RIS * POC-Creatinine (04/21/2018 1:27 PM CDT) POC-Creatinine 0.7Comment: [facility] 0.6 - 1.3 mg/dL [address] POC-EGFR 84 mL/min/1.73M2 [facility] Specimen Blood Performing Organization Address [facility] Phone Number [address] [address] [facility] * Hepatitis A antibody, IgG (04/03/2018 12:25 PM CDT) Hep A IgG Nonreactive Nonreactive [facility] Specimen Blood Performing Organization Address [facility] [place] [address] [facility] * Mitochondrial Antibodies, M2 (04/03/2018 12:25 PM CDT) Mitochondria M2 Ab <20.0 See Note: U [facility] Comment: INCORPORATED Reference Range: NEGATIVE:< OR=20.0 EQUIVOCAL: 20.1-24.9 POSITIVE:> OR=25.0 Specimen Blood Narrative Performed At Performing Lab [facility] [address] [place] [address] I Jacoby LLOYD, PhD, ZENAIDA Performing Organization Address City/[facility] Phone Number [facility], [address] [place], [place] [facility] [address] * Iron, TIBC, % sat. (without ferritin) (04/03/2018 12:25 PM CDT) Iron 124 40 - 160 ug/dL [facility] TIBC 355 250 - 450 ug/dL [facility] Iron % Saturation 35 20 - 55 % [facility] Specimen Blood Performing Organization Address [facility] Phone Number [facility] [address] [place] [address] [facility] * CBC with platelet count + automated diff (04/03/2018 12:25 PM CDT) WBC 7.2 3.5 - 10.5 K/L [facility] RBC 4.58 3.93 - 5.22 M/L [facility] Hemoglobin 13.8 11.2 - 15.7 GM/DL [facility] Hematocrit 41.7 34.1 - 44.9 % [facility] MCV 91.0 79.4 - 94.8 fL [facility] MCH 30.1 25.6 - 32.2 pg [facility] MCHC 33.1 32.2 - 35.5 GM/DL [facility] RDW 12.4 11.7 - 14.4 % [facility] Platelets 268 150 - 450 K/CU MM [facility] MPV 9.8 9.4 - 12.3 fL [facility] nRBC 0 0 - 0 /100 WBC [facility] % Neutros 58 % [facility] % Lymphs 32 % [facility] % Monos 7 % [facility] % Eos 2 % [facility] % Baso 0 % [facility] # Neutros 4.19 1.56 - 6.13 K/L [facility] # Lymphs 2.31 1.18 - 3.74 K/L [facility] # Monos 0.50 (H) 0.24 - 0.36 K/L [facility] # Eos 0.14 0.04 - 0.36 K/L [facility] # Baso 0.02 0.01 - 0.08 K/L [facility] Immature 0 0 - 1 % [facility] Granulocytes-Relative [facility] Specimen Blood Performing Organization Address City/[facility]/Zipcode Phone Number [place] [phone] * Hepatitis C antibody (04/03/2018 12:25 PM CDT) Hepatitis C Ab NON-REACTIVE Nonreactive [facility] Specimen Blood Performing Organization Address City/[facility]/Zipcode Phone Number [address] [address] [phone] [address] * Actin (Smooth Muscle) Antibody, IgG [...] Lab [facility] [address] [address] Oleksandr Dozier MD, PhD, ZENAIDA Performing Organization Address City/[facility] Phone Number [facility], [address] [place], [place] [facility] [address] * Btort-7-Hmdogthnzis (04/03/2018 12:25 PM CDT) A-1 Antitrypsin 156.90 90.00 - 200.00 mg/dL [facility] Specimen Blood Performing Organization Address [facility] Phone Number [address] * Hepatitis A antibody, IgM (04/03/2018 12:25 PM CDT) Hep A IgM HEPATITIS A TEST NEGATIVE Nonreactive [facility] Specimen Blood Performing Organization Address [facility] Phone Number [address] * DOLORES Titer & Pattern (04/03/2018 12:25 PM CDT) DOLORES Titer 1:160 [facility] DOLORES Pattern Nucleolar [facility] Specimen Blood Performing Organization Address [facility] Phone Number [address] * Ceruloplasmin (04/03/2018 12:25 PM CDT) Ceruloplasmin 30 18 - 53 mg/dL [facility] Comment: INCORPORATED Adults:Males: 18-36 mg/dL Fe males: 18-53 mg/dL Pediatrics: Males (mg/dL)Females (mg/dL) ------ 0-30 Days 8-25 3-28 31 Days-11 Month 15-481 5-43 1-3 Years2 5 -54 4-6 Years2 -54 7-9 Years2 -48 10-12 Bywob34-53 21-48 13-15 Onfyu38-09 21-46 16-18 Poitm38-89 22-50 The pediatric ranges are derived from the following criteria: Yon CHRISTY, Damien DON, Criss J et al Pediatric reference ranges for Lvqb-1-Kwjjcewmgmigl and ceruloplasmin. Clin. Chem 1997; 43:S1999 Pediatric Reference Ranges, 2nd., [place] Yon,et al. editors. [employer], [place], [place] 1997. Specimen Blood Narrative Performed At Performing Lab [facility] *[facility] [place] [facility], [address] [place] [address] Adalgisa Barbosa MD, PhD Performing Organization Address City/[facility] Phone Number [facility], [address] [facility] [address] * Alpha fetoprotein (AFP), tumor marker (04/03/2018 12:25 PM CDT) Alpha-Fetoprotein 3.0 <10.0 ng/mL [facility] Specimen Blood Performing Organization Address [facility] Phone Number [address] * Hepatitis B core antibody, total (04/03/2018 12:25 PM CDT) Hep B Core Total Ab NON-REACTIVE Nonreactive [facility] Specimen Blood Performing Organization Address [facility] Phone Number [phone] [place] [address] * Hepatitis B surface antibody (04/03/2018 12:25 PM CDT) Hep B S Ab <8.0 <8.0 mIU/mL [facility] Specimen Blood Performing Organization Address [facility] Phone Number [facility] [address] [facility] * Hepatitis B surface antigen (04/03/2018 12:25 PM CDT) hepatitis B Surface Ag NON-REACTIVE Nonreactive [facility] Specimen Blood Performing Organization Address City/[facility]/Zipcode Phone Number [address] [address] [phone] [place] [address] * Pro-time/INR (04/03/2018 12:25 PM CDT) Protime 13.1 11.7 - 14.7 seconds [facility] INR 1.0 <=5.9 [facility] Specimen Blood Narrative Performed At RECOMMENDED COUMADIN/WARFARIN INR THERAPY RANGES [facility] STANDARD DOSE: 2.0 - 3.0 Includes: PROPHYLAXIS for venous thrombosis, [facility] systemic embolization; TREATMENT for venous thrombosis and/or pulmonary embolus. HIGH RISK: Target INR is 2.5-3.5 for patients with mechanical heart valves. Performing Organization Address [facility] Phone Number [address] [address] [phone] [place] [address] * Anti-Nuclear Antibody (DOLORES) (04/03/2018 12:25 PM CDT) DOLORES Positive (A) Negative [facility] Specimen Blood Performing Organization Address City/[facility] Phone Number [address] [address] [phone] [place] [address] * Ferritin (04/03/2018 12:25 PM CDT) Ferritin 166 5 - 275 ng/mL [facility] Specimen Blood Performing Organization Address [facility] Phone Number [address] [address] [phone] [place] [address] * Bilirubin, direct (04/03/2018 12:25 PM CDT) Bilirubin, Direct 0.3 0.1 - 0.5 mg/dL [facility] Specimen Blood Performing Organization Address City/State/Zipcode Phone Number [facility] [address] [place] [address] [facility] * Comprehensive Metabolic Panel (04/03/2018 12:25 PM CDT) Protein, Total 7.8 6.0 - 8.3 gm/dL [facility] Albumin 4.5 3.5 - 5.0 g/dL [facility] Alkaline Phosphatase 92 40 - 150 U/L [facility] Total Bilirubin 0.8 0.2 - 1.2 mg/dL [facility] Sodium 142 136 - 145 meq/L [facility] Potassium 3.7 3.5 - 5.1 meq/L [facility] Chloride 106 98 - 107 meq/L [facility] CO2 24 22 - 29 meq/L [facility] BUN 14 7 - 21 mg/dL [facility] Creatinine 0.84 0.57 - 1.25 mg/dL [facility] Glucose 118 (H) 70 - 105 mg/dL [facility] Calcium 9.9 8.4 - 10.2 mg/dL [facility] AST 23 5 - 34 U/L [facility] ALT 44 6 - 55 U/L [facility] EGFR 68Comment: ESTIMATED GFR IS mL/min/1.73 sq m [facility] NOT ACCURATE CREATININE [facility] CLEARANCE IN PREDICTING GLOMERULAR FILTRATION RATE. ESTIMATED GFR IS NOT APPLICABLE FOR DIALYSIS PATIENTS. Specimen Blood Performing Organization Address City/State/Zipcode Phone Number [facility] [address] [place] [address] [facility] * Tissue Exam (03/21/2018 10:33 AM CDT) Case Report Surgical Pathology [facility] Case: [id number] Authorizing Provider:Antonio Jones DPMCollected: 03/21/2018 1033 Ordering Location: [facility] Received: 03/21/2018 1134 SERVICES Pathologist: Rochelle Vela MD Specimen:Foot, Right, soft tissue mass from right great toe DIAGNOSIS SKIN, RIGHT GREAT TOE, [facility] EXCISION: [facility] - DIGITAL MUCOUS CYST - NEGATIVE FOR MALIGNANCY Signing Pathologist Direct Phone Line: [phone] CPT Code(s) 92312 [facility] CLINICAL HISTORY Soft tissue mass right great [facility] toe [facility] SPECIMEN SOURCE Soft tissue mass right great [facility] toe [facility] GROSS DESCRIPTION Received in formalin labeled [facility] "foot, right", description [facility] "soft tissue mass right great toe" [...] in cassette A1. DB/pl MICROSCOPIC DESCRIPTION PERFORMED [facility] Specimen Tissue - Foot, Right Performing Organization Address City/State/Zipcode Phone Number [facility] [address] [place], [place] [id number] [facility] after 12/30/2017 Insurance Payer Benefit Subscriber ID Type Phone Address Plan / Group MEDICARE MEDICARE A xxxxxxxxxxx Medicare B
[2018-12-31 22:00] VITALS: BP 102/68
[2018-12-31] MEDS: FAMOTIDINE 20 MG TAB PO SCH (22:17)
[2018-12-31] MEDS ORDERED: SODIUM CHLORIDE 0.9% 50ML 50 ML ONE (22:27)
[2018-12-31] MEDS ORDERED: IOPAMIDOL 370 MG/ML 200 ML INFUS..BTL INJ ONE (22:27)
[2018-12-31] MEDS: INSULIN LISPRO 100 UNIT/1 ML 3ML VIAL SQ SCH (22:35)
[2018-12-31] MEDS: POTASSIUM CHLORIDE 10MEQ/100ML 100 ML IV SCH (22:54)
[2018-12-31] MEDS: HYDROMORPHONE 2MG/ML 2 MG/ML ML IV PRN (23:34)
[2019-01-01] VITALS (10 sets, daily range): BP systolic 96–116; BP diastolic 60–70
[2019-01-01] MEDS: POTASSIUM CHLORIDE 10MEQ/100ML 100 ML IV SCH (02:27)
--- NOTE | 2019-01-01 03:00 | NUR ---
heparin drip changed to 10mls/hr.
--- NOTE | 2019-01-01 03:00 | NUR ---
heparin drip rate changed to 1000 units. verified with another nurse.
[2019-01-01] MEDS: HYDROMORPHONE 2MG/ML 2 MG/ML ML IV PRN ×2 (05:19→13:07)
--- NOTE | 2019-01-01 07:25 | NUR ---
Patient condition throughout the shift was stable, patient endorsed to next shift for continuity of care.
[2019-01-01 09:26] LABS: BASOPHILS % 0.4 % (0.0-1.0); EOSINOPHILS # (AUTO) 0.2 (0.0-0.4); EOSINOPHILS % 2.3 % (0.0-6.0); HEMATOCRIT 34.2 % (34.2-44.1); HEMOGLOBIN 11.2 g/dL (12.0-16.0); LYMPHOCYTES # (AUTO) 4.5 (1.0-3.2); LYMPHOCYTES % 46.8 % (18.0-39.1); MEAN CORPUSCULAR HEMOGLOBIN 29.9 pg (28-32); MEAN CORPUSCULAR HGB CONC 32.7 g/dL (31-35); MEAN CORPUSCULAR VOLUME 91.2 fL (81-99); MONOCYTES # (AUTO) 0.8 (0.2-0.8); MONOCYTES % 7.8 % (4.4-11.3); PLATELET COUNT 307 x10e3/uL (140-360); RED BLOOD COUNT 3.75 x10e6/uL (3.6-5.1); RED CELL DISTRIBUTION WIDTH 12.4 % (11.7-14.4)
[2019-01-01 09:52] LABS: CREATINE KINASE MB 0.9 ng/mL (0-5.0)
[2019-01-01 09:55] LABS: ANION GAP 11.5 mmol/L (8-16); BLOOD UREA NITROGEN 17 mg/dL (7-26); BUN/CREATININE RATIO 20 (6-25); CALCIUM 8.6 mg/dL (8.4-10.2); CARBON DIOXIDE 25 mmol/L (22-29); CHLORIDE 102 mmol/L (98-107); CREATININE, SERUM 0.85 mg/dL (0.57-1.11); EST GLOMERULAR FILTRATION RATE > 60 ML/MIN (60-); GLUCOSE 206 mg/dL (74-118); POTASSIUM 3.5 mmol/L (3.5-5.1); SODIUM 135 mmol/L (136-145)
[2019-01-01] MEDS: FAMOTIDINE 20 MG TAB PO SCH ×2 (10:33→20:30)
[2019-01-01] MEDS: INSULIN LISPRO 100 UNIT/1 ML 3ML VIAL SQ SCH ×4 (10:34→21:00)
--- NOTE | 2019-01-01 10:36 | History and Physical ---
REASON FOR ADMISSION: A 63-year-old young lady unfortunately comes in with shortness of breath and also left lower extremity swelling and tenderness. HISTORY OF PRESENTING ILLNESS: Ms. Lucina Barrett is a 63-year-old lady, recently with ACDF was usual state of health until about 2-3 days prior to admission the patient noticed some left lower extremity swelling. The patient had not mobilized at that time secondary to the inability to go out secondary to the air quality. The patient started to have some dyspnea and improved by rest. The patient came in to see. PAST MEDICAL HISTORY: History of hypertension, history of diabetes mellitus. MEDICATIONS: Medications she takes at home are Valium, gabapentin, hydrochlorothiazide, hydrocodone, and metformin. PAST SURGICAL HISTORY: Hysterectomy, cholecystectomy, and recent laminectomy secondary to myelopathy. The patient also has Ramsay's esophagus and has been seen by Dr. Gonzales for that. ALLERGIES: ALLERGIC TO SULFA MEDICATIONS. SOCIAL HISTORY: No EtOH, no IV drug abuse and no smoking history either. FAMILY HISTORY: Positive for cancer in the family, history of arthritis in mother, and history of hypertension in mother too. PHYSICAL EXAMINATION: GENERAL: The patient is alert and oriented x3. VITAL SIGNS: Temperature is 98.2, pulse of 68, respiration of 19, blood pressure is 98/63, pulse oximetry of 100% oxygen at 1 L on nasal cannula. HEENT: Normocephalic, atraumatic. Pupils are reactive to light and accommodation. CVS: S1, S2 normal. Regular rhythm. ABDOMEN: Nontender, nondistended. LUNGS: Decreased air entry into all lung barton. EXTREMITIES: Left lower extremity with swelling and tenderness present. LABORATORY VALUES: White count is 14,000, hemoglobin of 12.9, hematocrit of 38.7. Chemistry; sodium of 139, potassium of 2.9 which was replaced, BUN of 29, creatinine of 1.0. Troponins have been negative. Coags are 12.5 and 0.89. IMAGING STUDIES: Chest CT shows pulmonary emboli with segmental and subsegmental arteries of the left lower lobe suggestive of associated mild right heart strain. Hepatic steatosis. Incidentally noted low-density subcentimeter lesion within the body of the pancreas, resolution of acute process recommended and possible MRCP. ASSESSMENT: 1. Acute deep venous thrombosis with pulmonary embolism. Plan is to continue the heparin drip. We will need to start the patient on warfarin bridge to bridge INR between [address] Claire has been consulted. 2. For the pancreatic mass, MRCP will be recommended. Once the patient is stabilized, we will do that. 3. Hypertension. The patient is more in the hypotensive area right now. We will continue to monitor the patient. 4. Diabetes. Insulin sliding scale. Bedrest and further recommendation per clinical course. We will continue to monitor the patient along with the consultants. MD JIMMIE Islas/MODL /[id number]
--- NOTE | 2019-01-01 12:11 | Consultation ---
DATE OF CONSULTATION: Pulmonary Consultation REASON FOR THE CONSULT: DVT. HISTORY OF PRESENT ILLNESS: Ms. Barrett is a 63-year-old female. She is a regular patient of Dr. Jason Claire. She has history of rheumatoid arthritis, was diagnosed with Legionnaires pneumonia two years ago and since then, she has been following up with Dr. Claire. She is a lifelong nonsmoker. She came in with leg swelling to Dr. Mooney's office and was sent to the hospital, where she was found to have a DVT with pulmonary embolism, the patient was started on heparin drip. She has a recent cervical fusion surgery by Dr. Asencio two weeks ago. Since then, her energy level is low. She is not mostly bed-bound, but her activity level was low. She denies any chest pain, nausea, vomiting, or diarrhea. She has some weakness and has some neck pain, but otherwise no complaints of pain. She denies any recent travel or any injury to the legs. REVIEW OF SYSTEMS: GENERAL: Denies any fever or chills. HEAD: Denies any head trauma. ENT: Denies any earache. CVS: Denies any chest pain. RESPIRATORY: Denies any shortness of breath. GI: Denies any nausea or vomiting. MUSCULOSKELETAL: Denies any arthralgias or myalgias. The rest of the review of systems are negative except as in HPI. PAST MEDICAL HISTORY: Hypertension, diabetes, rheumatoid arthritis, and history of kidney stones. PAST SURGICAL HISTORY: Cholecystectomy and hysterectomy. FAMILY AND SOCIAL HISTORY: She has never smoked. Used to work in airline. She is living with her . PHYSICAL EXAMINATION: VITAL SIGNS: Temperature 98.2, pulse is 68, blood pressure 116/70, respiratory rate of 18, and O2 saturation 97% on 2 L. HEENT: Head, atraumatic and normocephalic. NECK: Supple. She has a soft collar. CHEST: Clear to auscultation bilaterally. No wheezing. No crackles. HEART: S1 and S2 audible. ABDOMEN: Soft, nontender. EXTREMITIES: Pedal edema. NEUROLOGIC: Awake and alert. LABS: Today's white count is 9000, hemoglobin 11.2, and platelets 307. Chemistry; sodium 135, potassium 3.5, chloride 102, BUN 17, and creatinine 0.85. CT of the chest is showing segmental PE, not a major PE. They have incidentally noted low-density subcentimeter lesion within the body of the pancreas. ASSESSMENT: Ms. Barrett is a 63-year-old female, has DVT and PE. No immobility, recent neck surgery; however, the mobility was not hampered, so I would say that it is likely an unprovoked DVT and PE. CTA of the chest is showing that it is a segmental PE and there is an incidental finding of a pancreatic lesion. Current problems: 1. Acute pulmonary embolism and deep vein thrombosis. 2. Recent cervical fusion surgery. 3. History of hypertension and diabetes. 4. Rheumatoid arthritis. PLAN: 1. Agree with IV heparin infusion. 2. We will consult Physical Therapy for increasing the mobility, as postop she has been deconditioned. 3. Question of pancreatic mass on CT of the chest. We will discuss with Dr. Barth, may need evaluation by GI for further workup. Discussed with the patient's daughter at bedside. MD AMANDA Love/FREDA /[id number]
[2019-01-01] MEDS: ONDANSETRON HCL INJ 2MG/ML 2ML 2 MG/ML VIAL IV PRN (13:07)
[2019-01-01 17:54] LABS: CREATINE KINASE MB 0.7 ng/mL (0-5.0)
--- NOTE | 2019-01-01 18:20 | NUR ---
CASE MANAGEMENT INITIAL ASSESSMENT Customer Success Specialist to bedside to discuss plan of care with patient/family. CM/SW role and care transitions discussed. Anticipated discharge plan discussed along with duration of care. CM/SW discussed patients right to make decisions in care. CM/SW work hours given. Patient lives: Admit/Transfer: ER Hospital/ER visits since last admit:0 POA/Emergency contact: EDGAR HINES [phone] Current/Previous Home Health: NONE PCP/Follow-up Care: TASIA MACK Current/Previous DME: [facility] Medications (referring to index hospitalization or the first time you were in the hospital) a. Were changes made in your medications when you were in the hospital on [date of index hospitalization]? Yes No Not sure Explain: Note: If no or not sure, please skip to question d b. Did you understand the changes? Yes No Explain: c. Were you able to obtain your new medications right away? Yes No n/a SNF only Explain: d. Were you able to take your medications like the doctor wanted you to? HOME MEDS PER DR MACK e. Did the hospital give you an accurate, easy to understand list of medications when you left? Scale of 1-10 how comfortable does patient feel with disease management in outpatient settin Other Services: NONE Employment Status: DISABLED DUE TO RHEUMATOID ARTHRITIS Areas of Concerns: NONE Referral Needs: NONE Education Needs: TO BE DETERMINED IMM/ARELLANO given and signed (if applicable): IMM ON ADMIT Goal for discharge:TO RETURN HOME WITH SOON POSSIBLE CM/SW left business card at the bedside with contact information. Name and number was also written on the patients whiteboard. Patient verbalized understanding of discussion. CM will follow-up with ongoing discharge and transition of care needs.
[2019-01-01] MEDS: WARFARIN SOD 5 MG TAB PO SCH (18:25)
[2019-01-01] MEDS: HEPARIN 25,000U/0.45% NS 250ML 1,100 UNIT in Premix Bag 250 ML IV SCH (18:35)
--- NOTE | 2019-01-01 19:30 | NUR ---
Received patient stable, lethargic, complaining of a headache, Tylenol administered and reassured
[2019-01-01] MEDS: ACETAMINOPHEN 325 MG TAB PO PRN (20:11)
[2019-01-02] VITALS (7 sets, daily range): BP systolic 107–110; BP diastolic 56–64
--- NOTE | 2019-01-02 05:00 | NUR ---
patient assisted to the bedside commode and back to bed, tolerated activity well. Hemodynamically stable. Linens changed
[2019-01-02 06:47] LABS: INR 0.97; PROTHROMBIN TIME 13.4 seconds (11.9-14.5)
[2019-01-02 06:49] LABS: PARTIAL THROMBOPLASTIN TIME 63.5 seconds (23.8-35.5)
--- NOTE | 2019-01-02 07:08 | NUR ---
handed over stable
[2019-01-02] MEDS: INSULIN LISPRO 100 UNIT/1 ML 3ML VIAL SQ SCH ×4 (08:07→22:00)
[2019-01-02] MEDS: FAMOTIDINE 20 MG TAB PO SCH ×2 (08:08→19:26)
[2019-01-02] MEDS: ONDANSETRON HCL INJ 2MG/ML 2ML 2 MG/ML VIAL IV PRN ×4 (08:31→23:30)
[2019-01-02] MEDS: HYDROMORPHONE 2MG/ML 2 MG/ML ML IV PRN ×4 (08:31→23:30)
--- NOTE | 2019-01-02 10:05 | Progress Note ---
DATE: SUBJECTIVE: This is a patient came in with acute deep vein thrombosis and also pulmonary embolism. The patient complains of pain in the lower extremities. OBJECTIVE: VITAL SIGNS: Temperature is 97.9, pulse of 62, respiration of 18, and blood pressure is 109/67. HEENT: Normocephalic and atraumatic. Pupils are reactive to light and accommodation. CVS: S1 and S2, normal. Regular rate and rhythm. ABDOMEN: Nontender. Nondistended. EXTREMITIES: Left lower extremity is swollen, erythematous, and tender. LABORATORY DATA: Today's white count is 9.62, hemoglobin of 11.2, and hematocrit of 34.2. Chemistries show sodium of 135, potassium of 3.5, BUN of 17, creatinine of 0.9. Coags; INR is 0.97, 13.4 of PT. ASSESSMENT: 1. Acute deep venous thrombosis of the lower extremities, extensive. 2. The patient also has bilateral pulmonary embolisms. The patient is to continue on heparin drip and warfarin bridge will be monitored. 3. The patient has a pancreatic mass, which has been mentioned to the patient. We will need to do an MRCP and further workup on that. It could be reason for the for deep venous thrombosis. 4. Hypertension. 5. Diabetes mellitus. 6. Recent history of cervical fusion for myelopathy. Further recommendation and clinical course, plan is to keep her in the hospital and continue with warfarin, follow her PT/INR on a daily basis. MD JIMMIE Islas/MODL /[id number]
[2019-01-02] MEDS: WARFARIN SOD 5 MG TAB PO SCH (17:46)
[2019-01-02] MEDS: HEPARIN 25,000U/0.45% NS 250ML 1,100 UNIT in Premix Bag 250 ML IV SCH (22:12)
[2019-01-03] VITALS (7 sets, daily range): BP systolic 93–127; BP diastolic 54–63
[2019-01-03 06:41] LABS: BASOPHILS % 0.4 % (0.0-1.0); EOSINOPHILS # (AUTO) 0.4 (0.0-0.4); EOSINOPHILS % 4.8 % (0.0-6.0); HEMATOCRIT 36.6 % (34.2-44.1); HEMOGLOBIN 11.8 g/dL (12.0-16.0); LYMPHOCYTES # (AUTO) 3.5 (1.0-3.2); LYMPHOCYTES % 37.7 % (18.0-39.1); MEAN CORPUSCULAR HEMOGLOBIN 29.5 pg (28-32); MEAN CORPUSCULAR HGB CONC 32.2 g/dL (31-35); MEAN CORPUSCULAR VOLUME 91.5 fL (81-99); MONOCYTES # (AUTO) 0.9 (0.2-0.8); MONOCYTES % 9.9 % (4.4-11.3); NEUTROPHILS # (AUTO) 4.2 (2.1-6.9); NEUTROPHILS % 45.6 % (38.7-80.0); PLATELET COUNT 311 x10e3/uL (140-360); RED CELL DISTRIBUTION WIDTH 12.4 % (11.7-14.4)
[2019-01-03 06:50] LABS: INR 0.98; PROTHROMBIN TIME 13.5 seconds (11.9-14.5)
[2019-01-03 06:51] LABS: PARTIAL THROMBOPLASTIN TIME 49.3 seconds (23.8-35.5)
--- NOTE | 2019-01-03 07:20 | NUR ---
Received patient and walking rounds complete. Patient awake resting at this time, no signs of distress. Call light in reach, will continue to monitor.
--- NOTE | 2019-01-03 07:28 | NUR ---
Morning PTT came back at 49.3, increased heparin drip to 11 mls/hr. Order to repeat PTT lab at 1325.
[2019-01-03] MEDS: INSULIN LISPRO 100 UNIT/1 ML 3ML VIAL SQ SCH ×4 (07:30→21:02)
[2019-01-03] MEDS: HYDROMORPHONE 2MG/ML 2 MG/ML ML IV PRN ×2 (08:18→21:42)
[2019-01-03] MEDS: FAMOTIDINE 20 MG TAB PO SCH ×2 (08:18→21:02)
[2019-01-03] MEDS: ONDANSETRON HCL INJ 2MG/ML 2ML 2 MG/ML VIAL IV PRN ×2 (08:18→21:42)
--- NOTE | 2019-01-03 10:43 | NUR ---
Patient A/O X3, even respirations, unlabored on RA. Skin intact, bowel sounds active. Left lower extremity 1+ non-pitting edema. Heparin drip to Left AC @ 11mls/hr. Right AC 20 gauge IV SL. Patient is ambulatory with assistance. No complaint of pain or discomfort at this time. Call light in reach, will continue to monitor.
--- NOTE | 2019-01-03 14:03 | NUR ---
PTT 60.3, no change in Heparin drip rate at this time. Heparin drip remains at 11 mls/hr.
[2019-01-03] MEDS: WARFARIN SOD 5 MG TAB PO SCH (16:20)
[2019-01-03] MEDS: ACETAMINOPHEN 325 MG TAB PO PRN (16:20)
--- NOTE | 2019-01-03 18:23 | NUR ---
Spoke with MD Alvarado regarding patients previous elevated temperatures of 101.8 and 100.5. Order for urine analysis and Rocephin 1 gram Q24.
[2019-01-03] MEDS ORDERED: CEFTRIAXONE SOD 1 GM/NS 50 ML 50 ML IV SCH (18:30)
--- NOTE | 2019-01-03 20:46 | NUR ---
PTT IS THERAPEUTIC READING 68.9. NO CHANGE TO HEPARIN DRIP RATE AT 11 MLS/HR. WILL CHECK PTT DAILY PER PROTOCOL
[2019-01-03] MEDS ORDERED: SODIUM CHLORIDE 0.9% 250ML 250 ML ONE (20:57)
[2019-01-03] MEDS: HEPARIN 25,000U/0.45% NS 250ML 1,100 UNIT in Premix Bag 250 ML IV SCH (21:02)
[2019-01-03] MEDS: CEFTRIAXONE SOD 1 GM/NS 50 ML 50 ML IV SCH (21:02)
[2019-01-04] VITALS (8 sets, daily range): BP systolic 91–120; BP diastolic 44–65
[2019-01-04] MEDS: ONDANSETRON HCL INJ 2MG/ML 2ML 2 MG/ML VIAL IV PRN ×3 (04:40→20:00)
[2019-01-04] MEDS: HYDROMORPHONE 2MG/ML 2 MG/ML ML IV PRN ×3 (04:40→19:45)
[2019-01-04 05:39] LABS: CLARITY,URINE CLEAR (CLEAR); COLOR,URINE YELLOW (YELLOW); LEUKOCYTE ESTERASE ,URINE TRACE (NEGATIVE)
[2019-01-04 05:40] LABS: BILIRUBIN,URINE NEGATIVE (NEGATIVE); KETONES,URINE NEGATIVE (NEGATIVE); NITRITE,URINE NEGATIVE (NEGATIVE); PROTEIN,URINE DIPSTICK NEGATIVE (NEGATIVE); URINE UROBILINOGEN 0.2 mg/dL (0.2 - 1)
[2019-01-04 05:42] LABS: EPITHELIAL CELLS,URINE FEW /LPF; RBC,URINE 0-5 /HPF (0-5)
[2019-01-04 06:23] LABS: INR 1.04; PROTHROMBIN TIME 14.1 seconds (11.9-14.5)
--- NOTE | 2019-01-04 07:05 | NUR ---
PTT READING 84.8. HEPARIN DECREASED BY 100 UNITS/HR. HEPARIN DRIP RATE NOW AT 10 MLS/HR. WILL RECHECK PTT IN 6 HOURS PER PROTOCOL.
--- NOTE | 2019-01-04 07:12 | NUR ---
Received patient and walking rounds complete. Patient resting in bed at this time, no signs of distress. Call light in reach, will continue to monitor.
[2019-01-04] MEDS: INSULIN LISPRO 100 UNIT/1 ML 3ML VIAL SQ SCH ×4 (07:30→21:00)
[2019-01-04] MEDS: FAMOTIDINE 20 MG TAB PO SCH ×2 (08:23→19:30)
--- NOTE | 2019-01-04 10:30 | NUR ---
Patient A/O X3, even respirations on RA, no signs of distress. Right AC 20 gauge SL. Left AC 20 gauge with Heparin drip at 10mls/hr. Left lower extremity 1+ non-pitting edema. Patient is ambulatory with assistance. No complaint of pain or discomfort at this time. Call light in reach, will continue to monitor.
--- NOTE | 2019-01-04 13:42 | Consultation ---
DATE OF CONSULTATION: 01/03/2019 REASON FOR CONSULTATION: DVT and PE. HISTORY OF PRESENT ILLNESS: This is a pleasant 63-year-old female, who presented with swelling on the left leg. According to the patient, she had noticed some swelling on her lower extremity on the left. She decided to see the PCP and was sent to the emergency room for further evaluation. In the ER, she had a CT done that showed acute PE and DVT on the left leg and she was admitted for anticoagulation. She has a history of recent laminectomy done and has not been moving around real good. She has a history of chronic arthritis and pain on the left extremity. Also due to the history of air pollution, she has not been moving around real good. She denied any chest pain, any palpitation, any diaphoresis, any headache, nausea, or vomiting. PAST MEDICAL HISTORY: Hypertension, diabetes, rheumatoid arthritis, Legionella pneumonia, asthma, kidney stone, Ramsay esophagus, anxiety, GERD, rotator cuff tear on the right, chronic low back pain, and recent pancreatic lesion. PAST SURGICAL HISTORY: Cholecystectomy, hysterectomy, and recent laminectomy. FAMILY HISTORY: Positive for CAD. SOCIAL HISTORY: No smoking. No drinking. She lives at home with her . MEDICATIONS: See med list. ALLERGIES: SHE IS ALLERGIC TO SULFA. REVIEW OF SYSTEMS: Negative except those mentioned above. She is positive for DVT on the left leg and PE. PHYSICAL EXAMINATION: VITAL SIGNS: Temperature 97.5, heart rate 63, blood pressure 101/59, respirations 16, and oxygen saturation 97% on 2 L nasal cannula. GENERAL: She is awake, alert, and oriented x3. HEENT: Mucous membranes moist. NECK: Supple. LUNGS: Bilateral with decreased breath sounds. CARDIOVASCULAR: S1 and S2 present. ABDOMEN: Soft. NEUROLOGIC: Intact. EXTREMITIES: With edema on the left leg. LABS: Sodium 135, potassium 3.5, chloride 102, CO2 of 25, BUN 17, creatinine 0.85, and glucose 206. White blood cell 9.17, hemoglobin 11.8, hematocrit 36.6, and platelets 311. PT 14.1, PTT 84.8, and INR 1.04. IMPRESSION: 1. Acute pulmonary embolism. 2. Acute deep vein thrombosis on the left leg. 3. Hypertension. 4. Diabetes. 5. History of recent neck surgery. ASSESSMENT AND PLAN: 1. She had a recent echocardiogram done in November 2018 that showed normal systolic function, EF 60% to 65%. 2. She is on heparin drip and Coumadin. We will continue the same until INR is therapeutic. 3. Blood pressure and heart rate stable. 4. We will continue her home medications. Further cardiac workup pending clinical course. Thank you for this consultation. Dictated by Naina Mcneill NP MD RODDY Gray/FREDA /[id number]
--- NOTE | 2019-01-04 14:31 | NUR ---
PTT READING CAME BACK AT 57.5. PTT THERAPEUTIC, NO CHANGE IN RATE AT THIS TIME. HEPARIN DRIP REMAINS AT 10 MLS/HR. WILL REDRAW PTT IN 6 HOURS PER PROTOCOL.
[2019-01-04] MEDS: WARFARIN SOD 5 MG TAB PO SCH (16:34)
[2019-01-04] MEDS: ACETAMINOPHEN 325 MG TAB PO PRN (16:34)
[2019-01-04] MEDS: HEPARIN 25,000U/0.45% NS 250ML 1,100 UNIT in Premix Bag 250 ML IV SCH (19:30)
--- NOTE | 2019-01-04 20:00 | NUR ---
INITIAL ASSESSMENT COMPLETE, CALL LIGHT IN REACH, PT C/O PAIN TO LEFT LEG 04/22, TELE ON PT, HEPRIN DRIP INFUSING, FAMILY AT BEDSIDE, NO DISTRESS NOTED, VS STABLE
[2019-01-04] MEDS: CEFTRIAXONE SOD 1 GM/NS 50 ML 50 ML IV SCH (21:00)
--- NOTE | 2019-01-04 22:30 | NUR ---
LAB DRAWN FOR PTT, X 4 STICKS
--- NOTE | 2019-01-04 22:30 | NUR ---
PTT 59. THERAPEUTIC
[2019-01-05] VITALS (7 sets, daily range): BP systolic 101–127; BP diastolic 50–63
--- NOTE | 2019-01-05 | NUR ---
PT AWAKE FOR VS, NO DISTRESS NOTED, HEPRIN INFUSING, NO C/O PAIN, CALL LIGHT IN REACH, VS STABLE
--- NOTE | 2019-01-05 06:27 | NUR ---
PT SLEEPING, VS STABLE, NO DISTRESS NOTED, CALL LIGHT IN REACH
--- NOTE | 2019-01-05 07:27 | NUR ---
PTT THERAPEUTIC 53.6. NO CHANGE. CONTINUE DAILY PTT. NEXT DUE TOMORROW MORNING.
[2019-01-05] MEDS: FAMOTIDINE 20 MG TAB PO SCH ×2 (08:25→20:58)
[2019-01-05] MEDS: INSULIN LISPRO 100 UNIT/1 ML 3ML VIAL SQ SCH ×4 (08:26→20:50)
[2019-01-05] MEDS: HYDROMORPHONE 2MG/ML 2 MG/ML ML IV PRN ×3 (09:06→21:30)
[2019-01-05] MEDS: ONDANSETRON HCL INJ 2MG/ML 2ML 2 MG/ML VIAL IV PRN (09:06)
[2019-01-05] MEDS: ENOXAPARIN INJ 80 MG/0.8 ML SYR SC SCH ×2 (10:19→20:59)
--- NOTE | 2019-01-05 11:33 | NUR ---
PAGED DR. HERNANDES AT THIS TIME REQUESTING ORDERS TO RESUME PHYSICAL THERAPY. AWAITING CALL BACK.
[2019-01-05 12:36] LABS: INR 1.08; PROTHROMBIN TIME 14.5 seconds (11.9-14.5)
--- NOTE | 2019-01-05 16:28 | NUR ---
ORDERS TO TRANSFER TO [facility] FOR THROMBECTOMY SPOKE WITH PT AND CHOICE LETTER SIGNED PER TRANSFER CENTER AND INTERNET [facility] HAS BEEN RENAMED TO [facility] MOT INITIATED AND SIGNED BY PT AND PLACED IN PACKET AT DESK CM CALLED [facility] [phone]; SPOKE WITH VINH AND INITIATED TRANSFER FAXED FACE SHEET TO [phone]; CONFIRMATION REC'D
[2019-01-05] MEDS: WARFARIN SOD 5 MG TAB PO SCH (16:30)
--- NOTE | 2019-01-05 16:44 | NUR ---
SPOKE TO DR. HERNANDES STATES OK TO TRANSFER WHEN ROOM IS AVAILABLE AT [facility]
[2019-01-05] MEDS: CEFTRIAXONE SOD 1 GM/NS 50 ML 50 ML IV SCH (20:58)
[2019-01-06] VITALS: BP 106/59
[2019-01-06] MEDS: ACETAMINOPHEN 325 MG TAB PO PRN ×2 (00:51→16:38)
[2019-01-06] MEDS: HYDROMORPHONE 2MG/ML 2 MG/ML ML IV PRN ×2 (01:48→20:56)
--- NOTE | 2019-01-06 02:15 | Progress Note ---
DATE: Progress Note SUBJECTIVE: The patient is here for acute pulmonary embolism and acute DVT. The patient also has a finding of an abnormal mass in the pancreas, hypertension, and diabetes. The patient currently has pain, rated as 8/10 in intensity in the left lower extremity where the clot is. OBJECTIVE: VITAL SIGNS: Temperature is 99.2, pulse of 80, and blood pressure is 127/60. HEENT: Normocephalic and atraumatic. Pupils are reactive to light and accommodation. CVS: S1 and S2. Normal rate and rhythm. ABDOMEN: Nontender and nondistended. EXTREMITIES: Left lower extremity tender, swollen and erythematous in the inner thigh. LABORATORY VALUES: White count is 11.17, the last hemoglobin is 11.8, and hematocrit of 36.6. Chemistries; glucose 115. Coags; last INR was 1.08 on the . ASSESSMENT: Acute pulmonary embolism, acute deep venous thrombosis of the left lower extremity, history of diabetes, questionable mass in the pancreas, and history of recent anterior cervical discectomy and fusion. PLAN: To transfer today to [facility] for possible thrombectomy with Interventional Radiology. The patient is on heparin. We will go ahead and change her over to Lovenox for procedure pending. Blood pressure control has been monitored and maintained. Continue home medication. Further recommendation and clinical course, the patient will be continued on her medicine at the [facility]. MD BLADIMIR IslasJ/MODL /[id number]
[2019-01-06 04:00] VITALS: BP 92/59
[2019-01-06] MEDS: INSULIN LISPRO 100 UNIT/1 ML 3ML VIAL SQ SCH ×4 (07:30→20:56)
[2019-01-06 08:00] VITALS: BP 101/57
[2019-01-06 08:30] VITALS: BP 101/57
[2019-01-06] MEDS: FAMOTIDINE 20 MG TAB PO SCH ×2 (08:46→21:05)
[2019-01-06] MEDS: ENOXAPARIN INJ 80 MG/0.8 ML SYR SC SCH ×2 (09:11→20:55)
--- NOTE | 2019-01-06 12:01 | Progress Note ---
DATE: SUBJECTIVE: The patient is here for acute DVT of the left lower extremity and also PE. Currently, the patient is on Lovenox, switched from a heparin drip. The patient is to be transferred to another facility for thrombectomy. OBJECTIVE: VITAL SIGNS: Temperature is 100.7, T-max 100.7, pulse of 87, respirations of 19, blood pressure is 106/59, pulse oximetry of 96% on room air. HEENT: Normocephalic, atraumatic. Pupils are reactive to light and accommodation. CVS: S1, S2 normal. Regular rate and rhythm. ABDOMEN: Nontender, nondistended. EXTREMITIES: Left lower extremity with swelling and tenderness. Positive for tenderness in the plantar fascia. Extremities are otherwise normal. LABORATORY DATA: The patient's laboratory values none done today. Hemoglobin was 11.8 and hematocrit 36.6 on . Glucoses have been running in the 150s to 200s range. ASSESSMENT: 1. Acute pulmonary embolism. 2. Acute deep venous thrombosis of left lower extremity. 3. History of mass in the pancreas. 4. History of anterior cervical diskectomy and fusion. PLAN: Transfer the patient to [facility] for thrombectomy. The patient has been off her heparin drip. We will continue the patient on Lovenox and wash off the warfarin. Blood pressure has been monitored and controlled. Continue with the current medication and possible transfer to [place] today depending on room. MD JIMMIE Islas/MODL /[id number]
[2019-01-06 12:49] VITALS: BP 105/62
--- NOTE | 2019-01-06 15:52 | NUR ---
CM called transfer center at [facility] and they stated that hospital is on divert, holding 41 in the ED. Marsha with transfer center stated they are only accepting STEMI, Stroke or trauma. NADEEM notified Dr. Barth and he stated to contact Dr. Delaney, and to transfer to another facility if Dr. Delaney's wants this. NADEEM called Dr. Delaney and he is on hold with [facility] and will call CM back with further info and instructions.
--- NOTE | 2019-01-06 15:52 | NUR ---
Nutrition Screen Note RD Recommendation for Physician: -Continue ADA diet as ordered Plan of Care: RD following, monitoring for tolerance and adequacy, diet education Nutrition reason for involvement: LOS Primary Diagnose(s): 1. Acute pulmonary embolism. 2. Acute deep venous thrombosis of left lower extremity. PMH: HTN, DM Ht: 62in Wt: 165lb BMI: 30.2kg/m2 IBW: 110lb RD Assessment: (01/06) Chart reviewed. Labs and meds reviewed. 63yo F, who was admitted for acute DVT of the left lower extremity and also PE. Currently, the patient is on Lovenox, switched from a heparin drip. The patient is to be transferred to another facility for thrombectomy. Visited pt in the room. Pt reported fair appetite. No GI complains noted. Pt denied any chewing or swallowing difficulty. Pt was newly dx with DM about 2 months ago. Diet education was provided. All questions have been answered. Current Diet: ADA diet Malnutrition Evaluation (01/06) The patient does not meet criteria for a specified degree of malnutrition at this time. Will re-evaluate at follow-up as appropriate. Diet Education Needs Assessment: Diet education indicated, pt was agreeable with plan. Nutrition Education Learner(s): pt Time spent: 25mins Barriers: No barriers identified. Cultural/Language Modifications: No cultural/language modifications noted. Pt speaks Syriac. Readiness: Pt eager to learn. Method: Handout, explanation Topics: Carbohydrate exchanges, Carbohydrate counting handouts, Reading the nutrition label, meal planning tips, exercise tips, servings/portion sizes Understanding/Compliance: Expect good understanding/compliance from pt. Will benefit from reinforcement. All questions have been answered. Nutrition Care Level: low Signed: Jennifer Adhikari, MS, RD, LD
--- NOTE | 2019-01-06 16:30 | NUR ---
Dr. Delaney called and stated he spoke with [employer]. Concern is that there are no ICU patients. [employer] will monitor situation and see if pt can come later today or in the morning. Dr. Delaney stated if pt is not able to transfer to [facility] by midmorning, he will give order to transfer pt to another facility. notified Director Yany Hubbard of all.
[2019-01-06 16:59] VITALS: BP 118/65
[2019-01-06] MEDS: CEFTRIAXONE SOD 1 GM/NS 50 ML 50 ML IV SCH (20:55)
--- NOTE | 2019-01-06 21:17 | NUR ---
report called to DAGOBERTO cronin at [facility]
== END 2019-01-06 21:22 | disposition short-term general hospital (02) | DRG 299 ==
LOC: ER 16:22 → ERHOLD 21:19 → IMCU 23:45 → MED/SURG 01-02 11:11
PROVIDERS: ADMIT Family Medicine; ATTEND Family Medicine
DX: I82.412 Acute embolism and thrombosis of left femoral vein (principal); I26.09 Other pulmonary embolism with acute cor pulmonale; I82.432 Acute embolism and thrombosis of left popliteal vein; I82.442 Acute embolism and thrombosis of left tibial vein; E87.6 Hypokalemia; Z88.2 Allergy status to sulfonamides; E11.9 Type 2 diabetes mellitus without complications; I10 Essential (primary) hypertension; Z79.84 Long term (current) use of oral hypoglycemic drugs; Z80.9 Family history of malignant neoplasm, unspecified; Z82.61 Family history of arthritis; Z82.49 Family history of ischemic heart disease and other diseases of the circulatory system; K86.89 Other specified diseases of pancreas; M06.9 Rheumatoid arthritis, unspecified; Z98.890 Other specified postprocedural states; Z87.01 Personal history of pneumonia (recurrent); K21.9 Gastro-esophageal reflux disease without esophagitis; K22.70 Barrett's esophagus without dysplasia; R53.81 Other malaise
CPT/HCPCS: 36415; 71260; 80048; 80053; 81001; 82550; 82553; 82948; 84484; 85025; 85610; 85730; 93005; 93970; 96372; 97139; 99284; J0696; J1644; J1650; J2270; J2405; J3480; J7030; J7050; Q9967

== ENCOUNTER → 2018-12-31 | Outpatient (CLI) | payer MEDICARE | LOC: RAD 15:11 | PROVIDERS: ATTEND Family Medicine | DX: I82.492 Acute embolism and thrombosis of other specified deep vein of left lower extremity (principal) | CPT/HCPCS: 93971 ==

== ENCOUNTER → 2019-02-16 | Outpatient (CLI) | payer MEDICARE ==
--- NOTE | 2019-02-16 14:52 | Diagnostic Imaging Report ---
Exam: Cervical spine 2 views with flexion and extension views History: Cervical disc herniation Comparison: Cervical spine radiographs 12/16/2018 Findings: Cervical spine is visualized from skull base to the top of T1 on the lateral radiograph. Stable position of surgical hardware related to anterior fusion of C3-C7. Hardware is intact. Flexion and extension radiographs show no evidence of inducible malalignment. Prevertebral soft tissues are of normal thickness. Partially visualized lung apices are well aerated. Impression: Stable position of surgical hardware related to multilevel anterior cervical spine fusion as above. No acute osseous abnormality. Signed by: Dr. Jason Richmond M.D. on 02/16/2019 2:48 PM
== END ==
LOC: RAD 14:01
PROVIDERS: ATTEND Family Medicine
DX: M50.20 Other cervical disc displacement, unspecified cervical region (principal); Z98.1 Arthrodesis status
CPT/HCPCS: 72050

== ENCOUNTER 2019-02-23 13:19 | Emergency (ER) | payer MEDICARE ==
[~2019-02-23] VITALS: Ht 157.5 cm; Wt 74.8 kg
--- OUTSIDE RECORDS SUMMARY | 2019-02-23 13:24 | XMS REPORT | Clinical Summary ---
Author Author KAILASH [facility] Address Unknown Phone Unavailable Care Team Providers Care Pattern Attendant Name Role Phone Liban Mooney PCP Allergies [...] medication. Currently, symptoms are being managed with [facility]. 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 NC-1001 / / [id number] Tissue Nucell Med W/Matrix Nc-1001 Tissue [employer] - [id number] Graft/Subs Implanted: Qty: 1 on 04/07/2018 by Antonio Tristan DPM 08/31/2022 NO-[id number] / [id number] / [facility] Right: Toe [employer] Implanted: Qty: 1 [...] 04/03/2018 Abnormal liver enzymes 12:25 PM CDT [id number]\\, Routine 04/03/2018 Abnormal liver enzymes SERUM 12:25 [...] TISSUE EXTREMITY LOWER 9:30 AM CDT after 02/22/2018 Results * MR abdomen with/without IV contrast (04/21/2018 1:54 PM CDT) Specimen Narrative Performed At FINAL REPORT [employer] [facility] MRI of the abdomen with and without [...] MD Report Verified Date/Time:04/21/2018 18:38:48 Reading Location: [facility] C0X [facility] Consult Reading Room Procedure Note Interface, [...] Report Verified Date/Time: 04/21/2018 18:38:48 Reading Location: [address] Consult Reading Room Performing Organization Address [facility] Phone Number GE RIS * POC-Creatinine (04/21/2018 1:27 PM CDT) POC-Creatinine 0.7Comment: [facility] 0.6 - 1.3 mg/dL [address] POC-EGFR 84 mL/min/1.73M2 [facility] Specimen Blood Performing Organization Address [facility] [place] [address] [facility] * Hepatitis A antibody, IgG (04/03/2018 12:25 PM CDT) Hep A IgG Nonreactive Nonreactive [facility] Specimen Blood Performing Organization Address [facility] [place] [address] [facility] * Mitochondrial Antibodies, M2 (04/03/2018 12:25 PM CDT) Mitochondria M2 Ab <20.0 See Note: U [facility] Comment: INCORPORATED Reference Range: NEGATIVE:< OR=20.0 EQUIVOCAL: 20.1-24.9 POSITIVE:> OR=25.0 Specimen Blood Narrative Performed At Performing Lab [facility] [address] [place] [address] Oleksandr Dozier MD, PhD, ZENAIDA Performing Organization Address City/[facility] Phone Number [facility], [address] [place], [place] [facility] [address] [address] * Iron, TIBC, % sat. (without ferritin) (04/03/2018 12:25 PM CDT) Iron 124 40 - 160 ug/dL [facility] TIBC 355 250 - 450 ug/dL [facility] Iron % Saturation 35 20 - 55 % [facility] Specimen Blood Performing Organization Address [facility] Phone Number [facility] [address] [place] [address] [facility] * CBC with platelet count + automated diff (04/03/2018 12:25 PM CDT) WBC 7.2 3.5 - 10.5 K/L [facility] RBC 4.58 3.93 - 5.22 M/L [facility] Hemoglobin 13.8 11.2 - 15.7 GM/DL [facility] Hematocrit 41.7 34.1 - 44.9 % [facility] MCV 91.0 79.4 - 94.8 fL [facility] MCH 30.1 25.6 - 32.2 pg [facility] MCHC 33.1 32.2 - 35.5 GM/DL [facility] RDW 12.4 11.7 - 14.4 % [facility] Platelets 268 150 - 450 K/CU MM [facility] MPV 9.8 9.4 - 12.3 fL [facility] nRBC 0 0 - 0 /100 WBC [facility] % Neutros 58 % [facility] % Lymphs 32 % [facility] % Monos 7 % [facility] % Eos 2 % [facility] % Baso 0 % [facility] # Neutros 4.19 1.56 - 6.13 K/L [facility] # Lymphs 2.31 1.18 - 3.74 K/L [facility] # Monos 0.50 (H) 0.24 - 0.36 K/L [facility] # Eos 0.14 0.04 - 0.36 K/L [facility] # Baso 0.02 0.01 - 0.08 K/L [facility] Immature 0 0 - 1 % [facility] Granulocytes-Relative [facility] Specimen Blood Performing Organization Address City/[facility]/[place] [address] [phone] * Hepatitis C antibody (04/03/2018 12:25 PM CDT) Hepatitis C Ab NON-REACTIVE Nonreactive [facility] Specimen Blood Performing Organization Address City/[facility]/Zipcode Phone Number [address] [address] [phone] [place] [address] * Actin (Smooth Muscle) Antibody, IgG (04/03/2018 [...] Lab [facility] [address] [place] [address] Oleksandr Dozier MD, PhD, ZENAIDA Performing Organization Address City/[facility] Phone Number [facility], [address] [place], [place] [facility] [facility] [address] * [id number] (04/03/2018 12:25 PM CDT) A-1 Antitrypsin 156.90 90.00 - 200.00 mg/dL [facility] Specimen Blood Performing Organization Address [facility] Phone Number [address] * Hepatitis A antibody, IgM (04/03/2018 12:25 PM CDT) Hep A IgM HEPATITIS A TEST NEGATIVE Nonreactive [facility] Specimen Blood Performing Organization Address [facility] Phone Number [address] * DOLORES Titer & Pattern (04/03/2018 12:25 PM CDT) DOLORES Titer 1:160 [facility] DOLORES Pattern Nucleolar [facility] Specimen Blood Performing Organization Address [facility] Phone Number [address] * Ceruloplasmin (04/03/2018 12:25 PM CDT) Ceruloplasmin 30 18 - 53 mg/dL [facility] Comment: INCORPORATED Adults:Males: 18-36 mg/dL Fe males: 18-53 mg/dL Pediatrics: Males (mg/dL)Females (mg/dL) ------ 0-30 Days 8-25 3-28 31 Days-11 Month 15-481 5-43 1-3 Years2 5-5628 -54 4-6 Years2 -54 7-9 Years2 5-5222 -48 10-12 [id number] 21-48 13-15 [id number] 21-46 16-18 Gwfmr93-18 22-50 The pediatric ranges are derived from the following criteria: Yon CHRISTY, Damien DON, Criss J et al Pediatric reference ranges for [id number] and ceruloplasmin. Clin. Chem 1997; 43:S1999 Pediatric Reference Ranges, 2nd., [place] Yon,et al. editors. [employer], [place], [place] 1997. Specimen Blood Narrative Performed At Performing Lab [facility] *[facility] [address] [place], [address] [place] [address] Adlagisa Barbosa MD, PhD Performing Organization Address City/[facility] Cent[facility] Phone Number [facility], [address] [facility] [address] [address] * Alpha fetoprotein (AFP), tumor marker (04/03/2018 12:25 PM CDT) Alpha-Fetoprotein 3.0 <10.0 ng/mL [facility] Specimen Blood Performing Organization Address [facility] Phone Number [address] * Hepatitis B core antibody, total (04/03/2018 12:25 PM CDT) Hep B Core Total Ab NON-REACTIVE Nonreactive [facility] Specimen Blood Performing Organization Address [facility] Phone Number [id number] [place] [address] [phone] * Hepatitis B surface antibody (04/03/2018 12:25 PM CDT) Hep B S Ab <8.0 <8.0 mIU/mL [facility] Specimen Blood Performing Organization Address City/[facility] Phone Number [facility] [address] [address] [facility] * Hepatitis B surface antigen (04/03/2018 12:25 PM CDT) hepatitis B Surface Ag NON-REACTIVE Nonreactive [facility] Specimen Blood Performing Organization Address City/[facility]/Zipcode Phone Number [address] [address] [facility] * Pro-time/INR (04/03/2018 12:25 PM CDT) Protime 13.1 11.7 - 14.7 seconds [facility] INR 1.0 <=5.9 [facility] Specimen Blood Narrative Performed At RECOMMENDED COUMADIN/WARFARIN INR THERAPY RANGES [facility] STANDARD DOSE: 2.0 - 3.0 Includes: PROPHYLAXIS for venous thrombosis, [facility] systemic embolization; TREATMENT for venous thrombosis and/or pulmonary embolus. HIGH RISK: Target INR is 2.5-3.5 for patients with mechanical heart valves. Performing Organization Address [facility] Phone Number [address] [address] [phone] [place] [address] * Anti-Nuclear Antibody (DOLORES) (04/03/2018 12:25 PM CDT) DOLORES Positive (A) Negative [facility] Specimen Blood Performing Organization Address City/[facility] Phone Number [address] [address] [facility] * Ferritin (04/03/2018 12:25 PM CDT) Ferritin 166 5 - 275 ng/mL [facility] Specimen Blood Performing Organization Address [facility] Phone Number [address] [address] [facility] * Bilirubin, direct (04/03/2018 12:25 PM CDT) Bilirubin, Direct 0.3 0.1 - 0.5 mg/dL [facility] Specimen Blood Performing Organization Address City/State/Zipcode Phone Number [facility] [address] [place] [address] [facility] * Comprehensive Metabolic Panel (04/03/2018 12:25 PM CDT) Protein, Total 7.8 6.0 - 8.3 gm/dL [facility] Albumin 4.5 3.5 - 5.0 g/dL [facility] Alkaline Phosphatase 92 40 - 150 U/L [facility] Total Bilirubin 0.8 0.2 - 1.2 mg/dL [facility] Sodium 142 136 - 145 meq/L [facility] Potassium 3.7 3.5 - 5.1 meq/L [facility] Chloride 106 98 - 107 meq/L [facility] CO2 24 22 - 29 meq/L [facility] BUN 14 7 - 21 mg/dL [facility] Creatinine 0.84 0.57 - 1.25 mg/dL [facility] Glucose 118 (H) 70 - 105 mg/dL [facility] Calcium 9.9 8.4 - 10.2 mg/dL [facility] AST 23 5 - 34 U/L [facility] ALT 44 6 - 55 U/L [facility] EGFR 68Comment: ESTIMATED GFR IS mL/min/1.73 sq m [facility] NOT ACCURATE CREATININE [facility] CLEARANCE IN PREDICTING GLOMERULAR FILTRATION RATE. ESTIMATED GFR IS NOT APPLICABLE FOR DIALYSIS PATIENTS. Specimen Blood Performing Organization Address City/State/Zipcode Phone Number [facility] [address] [place] [address] [facility] * Tissue Exam (03/21/2018 10:33 AM CDT) Case Report Surgical Pathology [facility] Case: [id number] Authorizing Provider:Antonio Jones DPMCollected: 03/21/2018 1033 Ordering Location: [facility] PERIOPERATIVE Received: 03/21/2018 1134 SERVICES Pathologist: Rochelle Vela MD Specimen:Foot, Right, soft tissue mass from right great toe DIAGNOSIS SKIN, RIGHT GREAT TOE, [facility] EXCISION: [facility] - DIGITAL MUCOUS CYST - NEGATIVE FOR MALIGNANCY Signing Pathologist Direct Phone Line: [phone] CPT Code(s) [address]804 [facility] CLINICAL HISTORY Soft tissue mass right great [facility] toe [facility] SPECIMEN SOURCE Soft tissue mass right great [facility] toe [facility] GROSS DESCRIPTION Received in formalin labeled [facility] "foot, right", description [facility] "soft tissue mass right great toe" [...] in cassette A1. DB/pl MICROSCOPIC DESCRIPTION PERFORMED [facility] Specimen Tissue Performing Organization Address City/State/Zipcode Phone Number [facility] [address] [place], [place] [id number] [facility] after 02/22/2018 Insurance Payer Benefit Subscriber ID Type Phone Address Plan / Group MEDICARE MEDICARE A xxxxxxxxxxx Medicare B
[2019-02-23 15:40] LABS: BASOPHILS % 0.5 % (0.0-1.0); EOSINOPHILS # (AUTO) 0.1 (0.0-0.4); EOSINOPHILS % 1.7 % (0.0-6.0); HEMATOCRIT 41.1 % (34.2-44.1); HEMOGLOBIN 13.4 g/dL (12.0-16.0); LYMPHOCYTES # (AUTO) 2.1 (1.0-3.2); MEAN CORPUSCULAR HEMOGLOBIN 29.3 pg (28-32); MEAN CORPUSCULAR HGB CONC 32.6 g/dL (31-35); MEAN CORPUSCULAR VOLUME 89.9 fL (81-99); MONOCYTES # (AUTO) 0.5 (0.2-0.8); MONOCYTES % 7.7 % (4.4-11.3); NEUTROPHILS # (AUTO) 3.2 (2.1-6.9); NEUTROPHILS % 54.8 % (38.7-80.0); PLATELET COUNT 325 x10e3/uL (140-360); RED BLOOD COUNT 4.57 x10e6/uL (3.6-5.1); RED CELL DISTRIBUTION WIDTH 13.3 % (11.7-14.4)
[2019-02-23 15:47] LABS: INR 1.72; PARTIAL THROMBOPLASTIN TIME 36.3 seconds (23.8-35.5); PROTHROMBIN TIME 20.8 seconds (11.9-14.5)
[2019-02-23 15:57] LABS: ALANINE AMINOTRANSFERASE 31 IU/L (0-55); ALBUMIN 4.3 g/dL (3.5-5.0); ALKALINE PHOSPHATASE 79 IU/L (40-150); ANION GAP 16.1 mmol/L (8-16); BLOOD UREA NITROGEN 15 mg/dL (7-26); BUN/CREATININE RATIO 20 (6-25); CARBON DIOXIDE 29 mmol/L (22-29); CHLORIDE 101 mmol/L (98-107); CREATININE, SERUM 0.76 mg/dL (0.57-1.11); EST GLOMERULAR FILTRATION RATE > 60 ML/MIN (60-); GLUCOSE 98 mg/dL (74-118); POTASSIUM 3.1 mmol/L (3.5-5.1); SODIUM 143 mmol/L (136-145)
--- NOTE | 2019-02-23 17:35 | NUR ---
report called to receiving facility
== END 2019-02-23 18:06 | disposition short-term general hospital (02) ==
LOC: ER 13:19
DX: M79.662 Pain in left lower leg (principal); I82.4Z2 Acute embolism and thrombosis of unspecified deep veins of left distal lower extremity; I10 Essential (primary) hypertension; E11.9 Type 2 diabetes mellitus without complications; J44.9 Chronic obstructive pulmonary disease, unspecified; K76.9 Liver disease, unspecified; F41.9 Anxiety disorder, unspecified
CPT/HCPCS: 36415; 80053; 85025; 85610; 85730; 93005; 99284

== ENCOUNTER → 2019-02-23 | Outpatient (CLI) | payer MEDICARE | LOC: RAD 11:54 | PROVIDERS: ATTEND Family Medicine | DX: I82.512 Chronic embolism and thrombosis of left femoral vein (principal); I82.532 Chronic embolism and thrombosis of left popliteal vein | CPT/HCPCS: 93970 ==

== ENCOUNTER 2019-03-20 10:10 | Emergency (ER) | payer MEDICARE ==
[~2019-03-20] VITALS: Ht 157.5 cm; Wt 74.8 kg
--- OUTSIDE RECORDS SUMMARY | 2019-03-20 10:15 | XMS REPORT | Clinical Summary ---
Author Author KAILASH [facility] Address Unknown Phone Unavailable Care Team Providers Care Help Desk Assistant Name Role Phone Liban Mooney PCP Allergies [...] medication. Currently, symptoms are being managed with [place]. She will be following up with [facility] Rheumatology in April 2018. Fatty liver [...] Encounter Dayanna Velazquez NP 04/07/2018 Anesthesia Event nAtonio Jones DPM DEBRIDEMENT/I&D,WOUND EXTREMITY LOWER 04/07/2018 Surgery [...] Surgery Antonio Jones DPM 03/21/2018 Hospital Encounter after 03/19/2018 Family History Medical History Relation Name Comments [...] Area Manufactur er 06/20/2018 NC-1001 / / [id number] Tissue Nucell Med W/Matrix Nc-1001 Tissue NUTECH MED - [id number] Graft/Subs Implanted: Qty: 1 on 04/07/2018 by Antonio Tristan DPM 08/31/2022 NO-1440 / [id number] / [facility]ly [facility] Right: Toe NUTECH MED Implanted: Qty: [...] 04/03/2018 Abnormal liver enzymes 12:25 PM CDT [id number]-[id number]\\, Routine 04/03/2018 Abnormal liver enzymes SERUM 12:25 [...] TISSUE EXTREMITY LOWER 9:30 AM CDT after 03/19/2018 Results * MR abdomen with/without IV contrast (04/21/2018 1:54 PM CDT) Specimen Narrative Performed At FINAL REPORT [facility] MRI of the abdomen with and [...] MD Report Verified Date/Time:04/21/2018 18:38:48 Reading Location: [address] Consult Reading Room Procedure Note Interface, [...] Report Verified Date/Time: 04/21/2018 18:38:48 Reading Location: [address] Consult Reading Room Performing Organization Address [facility] Phone Number GE RIS * POC-Creatinine (04/21/2018 1:27 PM CDT) POC-Creatinine 0.7Comment: TESTED AT [facility] 0.6 - 1.3 mg/dL [address] POC-EGFR 84 mL/min/1.73M2 [facility] Specimen Blood Performing Organization Address [facility] Phone Number [address] * Hepatitis A antibody, IgG (04/03/2018 12:25 PM CDT) Hep A IgG Nonreactive Nonreactive [facility] Specimen Blood Performing Organization Address [facility] [place] [place] [address] [phone] * Mitochondrial Antibodies, M2 (04/03/2018 12:25 PM CDT) Mitochondria M2 Ab <20.0 See Note: U [facility] Comment: INCORPORATED Reference Range: NEGATIVE:< OR=20.0 EQUIVOCAL: 20.1-24.9 POSITIVE:> OR=25.0 Specimen Blood Narrative Performed At Performing Lab [facility] [address] [place] [address] Oleksandr Dozier MD, PhD, ZENAIDA Performing Organization Address City/[facility] Phone Number [facility], [address] [place] [address] [address] * Iron, TIBC, % sat. (without ferritin) (04/03/2018 12:25 PM CDT) Iron 124 40 - 160 ug/dL [facility] TIBC 355 250 - 450 ug/dL [facility] Iron % Saturation 35 20 - 55 % [facility] Specimen Blood Performing Organization Address [facility] Phone Number [facility] [address] [place] [address] [facility] * CBC with platelet count + automated diff (04/03/2018 12:25 PM CDT) WBC 7.2 3.5 - 10.5 K/L [facility] RBC 4.58 3.93 - 5.22 M/L [facility] Hemoglobin 13.8 11.2 - 15.7 GM/DL [facility] Hematocrit 41.7 34.1 - 44.9 % [facility] MCV 91.0 79.4 - 94.8 fL [facility] MCH 30.1 25.6 - 32.2 pg [facility] MCHC 33.1 32.2 - 35.5 GM/DL [facility] RDW 12.4 11.7 - 14.4 % [facility] Platelets 268 150 - 450 K/CU MM [facility] MPV 9.8 9.4 - 12.3 fL [facility] nRBC 0 0 - 0 /100 WBC [facility] % Neutros 58 % [facility] % Lymphs 32 % [facility] % Monos 7 % [facility] % Eos 2 % [facility] % Baso 0 % [facility] # Neutros 4.19 1.56 - 6.13 K/L [facility] # Lymphs 2.31 1.18 - 3.74 K/L [facility] # Monos 0.50 (H) 0.24 - 0.36 K/L [facility] # Eos 0.14 0.04 - 0.36 K/L [facility] # Baso 0.02 0.01 - 0.08 K/L [facility] Immature 0 0 - 1 % [facility] Granulocytes-[facility] Specimen Blood Performing Organization Address City/[facility]/Zipcode Phone Number [address] * Hepatitis C antibody (04/03/2018 12:25 PM CDT) Hepatitis C Ab NON-REACTIVE Nonreactive [facility] Specimen Blood Performing Organization Address City/[facility]/Zipcode Phone Number [address] * Actin (Smooth Muscle) Antibody, IgG (04/03/2018 [...] Lab [facility] [id number] [place] [address] Oleksandr Dozier MD, PhD, ZENAIDA Performing Organization Address City/State/[facility]ode Phone Number [facility], [address] [place] [address] [address] * Kuazv-0-Zbecdnukrep (04/03/2018 12:25 PM CDT) A-1 Antitrypsin 156.90 90.00 - 200.00 mg/dL [facility] Specimen Blood Performing Organization Address [facility] Phone Number [address] * Hepatitis A antibody, IgM (04/03/2018 12:25 PM CDT) Hep A IgM HEPATITIS A TEST NEGATIVE Nonreactive [facility] Specimen Blood Performing Organization Address City/[facility] Phone Number [address] * DOLORES Titer & Pattern (04/03/2018 12:25 PM CDT) DOLORES Titer 1:160 [facility] DOLORES Pattern Nucleolar [facility] Specimen Blood Performing Organization Address [facility] Phone Number [address] * Ceruloplasmin (04/03/2018 12:25 PM CDT) Ceruloplasmin 30 18 - 53 mg/dL [facility] Comment: INCORPORATED Adults:Males: 18-36 mg/dL Fe males: 18-53 mg/dL Pediatrics: Males (mg/dL)Females (mg/dL) ------ 0-30 Days 8-25 3-28 31 Days-11 Month 15-481 5-43 1-3 Years2 54[address] -54 4-6 Years2 -54 7-9 Years2 48 10-12 Ukvxw95-33 21-48 13-15 Blhgb26-25 21-46 16-18 Mesuo34-65 22-50 The pediatric ranges are derived from the following criteria: Yon SJ, Damien DON, Criss J et al Pediatric reference ranges for Ssot-8-Fybxgyoxqujpe and ceruloplasmin. Clin. Chem 1997; 43:S1999 Pediatric Reference Ranges, 2nd., [place] Yonet al. editors. [employer], [place], [place] 1997. Specimen Blood Narrative Performed At Performing Lab [facility] *[facility] [place] [facility], [address] [place] [address] Adalgisa Barbosa MD, PhD Performing Organization Address City/[facility] Cent[facility]ode Phone Number [facility], [address] [place] [address] [address] * Alpha fetoprotein (AFP), tumor marker (04/03/2018 12:25 PM CDT) Alpha-Fetoprotein 3.0 <10.0 ng/mL [facility] Specimen Blood Performing Organization Address [facility] Phone Number [address] [address] [phone] * Hepatitis B core antibody, total (04/03/2018 12:25 PM CDT) Hep B Core Total Ab NON-REACTIVE Nonreactive [facility] Specimen Blood Performing Organization Address City/[facility]/Zipcode Phone Number [address] [address] [facility] * Hepatitis B surface antibody (04/03/2018 12:25 PM CDT) Hep B S Ab <8.0 <8.0 mIU/mL [facility] Specimen Blood Performing Organization Address [facility] Phone Number [address] [address] [phone] [address] * Hepatitis B surface antigen (04/03/2018 12:25 PM CDT) hepatitis B Surface Ag NON-REACTIVE Nonreactive [facility] Specimen Blood Performing Organization Address [facility] Phone Number [address] * Pro-time/INR (04/03/2018 12:25 PM CDT) Protime 13.1 11.7 - 14.7 seconds [facility] INR 1.0 <=5.9 [facility] Specimen Blood Narrative Performed At RECOMMENDED COUMADIN/WARFARIN INR THERAPY RANGES [facility] STANDARD DOSE: 2.0 - 3.0 Includes: PROPHYLAXIS for venous thrombosis, [facility] systemic embolization; TREATMENT for venous thrombosis and/or pulmonary embolus. HIGH RISK: Target INR is 2.5-3.5 for patients with mechanical heart valves. Performing Organization Address [facility] Phone Number [address] * Anti-Nuclear Antibody (DOLORES) (04/03/2018 12:25 PM CDT) DOLORES Positive (A) Negative [facility] Specimen Blood Performing Organization Address [facility] Phone Number [address] * Ferritin (04/03/2018 12:25 PM CDT) Ferritin 166 5 - 275 ng/mL [facility] Specimen Blood Performing Organization Address City/[facility] Phone Number [address] * Bilirubin, direct (04/03/2018 12:25 PM CDT) Bilirubin, Direct 0.3 0.1 - 0.5 mg/dL [facility] Specimen Blood Performing Organization Address City/[facility] Phone Number [facility] [address] [place] [address] [facility] * Comprehensive Metabolic Panel (04/03/2018 12:25 PM CDT) Protein, Total 7.8 6.0 - 8.3 gm/dL [facility] Albumin 4.5 3.5 - 5.0 g/dL [facility] Alkaline Phosphatase 92 40 - 150 U/L [facility] Total Bilirubin 0.8 0.2 - 1.2 mg/dL [facility] Sodium 142 136 - 145 meq/L [facility] Potassium 3.7 3.5 - 5.1 meq/L [facility] Chloride 106 98 - 107 meq/L [facility] CO2 24 22 - 29 meq/L [facility] BUN 14 7 - 21 mg/dL [facility] Creatinine 0.84 0.57 - 1.25 mg/dL [facility] Glucose 118 (H) 70 - 105 mg/dL [facility] Calcium 9.9 8.4 - 10.2 mg/dL [facility] AST 23 5 - 34 U/L [facility] ALT 44 6 - 55 U/L [facility] EGFR 68Comment: ESTIMATED GFR IS mL/min/1.73 sq m [facility] NOT ACCURATE CREATININE [facility] CLEARANCE IN PREDICTING GLOMERULAR FILTRATION RATE. ESTIMATED GFR IS NOT APPLICABLE FOR DIALYSIS PATIENTS. Specimen Blood Performing Organization Address City/State/Zipcode Phone Number [facility] [address] [place] [address] [facility] * Tissue Exam (03/21/2018 10:33 AM CDT) Case Report Surgical Pathology [facility] Case: [id number] Authorizing Provider:Antonio Jones DPollected: 03/21/2018 1033 [facility] PERIOPERATIVE Received: 03/21/2018 1134 SERVICES Pathologist: Rochelle Vela MD Specimen:Foot, Right, soft tissue mass from right great toe DIAGNOSIS SKIN, RIGHT GREAT TOE, [facility] EXCISION: [facility] - DIGITAL MUCOUS CYST - NEGATIVE FOR MALIGNANCY Signing Pathologist Direct Phone Line: [phone] CPT Code(s) 78046 [facility] CLINICAL HISTORY Soft tissue mass right great [facility] toe [facility] SPECIMEN SOURCE Soft tissue mass right great [facility] toe [facility] GROSS DESCRIPTION Received in formalin labeled [facility] "foot, right", description [facility] "soft tissue mass right great [...] in cassette A1. DB/pl MICROSCOPIC DESCRIPTION PERFORMED [facility] Specimen Tissue Performing Organization Address City/State/Zipcode Phone Number [facility] [address] [place], [place] [id number] MEDICAL CENTER after 03/19/2018 Insurance Payer Benefit Subscriber ID Type Phone Address Plan / Group MEDICARE MEDICARE A xxxxxxxxxxx Medicare B
[2019-03-20 11:19] LABS: INR 2.46; PARTIAL THROMBOPLASTIN TIME 40.5 seconds (23.8-35.5); PROTHROMBIN TIME 27.4 seconds (11.9-14.5)
[2019-03-20 11:31] VITALS: BP 143/85
== END 2019-03-20 11:41 | disposition home or self-care (01) ==
LOC: ER 10:10
DX: M79.662 Pain in left lower leg (principal); I82.412 Acute embolism and thrombosis of left femoral vein; Z79.01 Long term (current) use of anticoagulants
CPT/HCPCS: 36415; 85610; 85730; 93971; 99283

== ENCOUNTER 2019-04-19 11:05 | Inpatient (IN) | payer MEDICARE, OTHER ==
[~2019-04-19] VITALS: Ht 157.5 cm; Wt 74.8 kg
--- OUTSIDE RECORDS SUMMARY | 2019-04-19 11:09 | XMS REPORT | Clinical Summary ---
Author Author KAILASH [facility] Address Unknown Phone Unavailable Care Team Providers Care Inspector Packager Name Role Phone Liban Mooney PCP Allergies [...] medication. Currently, symptoms are being managed with [place]. She will be following up with [facility] Rheumatology in April 2018. Fatty liver [...] Encounters Care Team Description Date Type Specialty Vidhya Duncan FNP Neurogenic claudication (Primary Dx) 04/01/2019 Outside Orders Central Scheduling Allie Moseley MD Diller, Karen Cardwell, PA-C [...] Abnormal liver enzymes 04/21/2018 Hospital Radiology Encounter after 04/18/2018 Family History Medical History Relation Name Comments [...] Vital Signs Time Taken Vital Sign Reading - Blood Pressure - - Pulse - - Temperature - - Respiratory Rate - - Oxygen Saturation - - Inhaled Oxygen - Concentration 07/10/2018 12:45 PM CDT Weight 79.7 kg (175 lb 11.2 oz) - Height - 07/10/2018 12:45 PM CDT Body Mass Index 32.14 Plan of Treatment Care Team Description Date Type Specialty Vidhya Duncan, ZINC MINER BLASTING [address] [facility] [address], [place] [address] 1.5, [facility] 04/21/2019 Appointment Magnetic Resonance Imaging Implants Device Identifier Shelf Expiration Date Model / Serial / Lot Implanted Type Area Manufactur er 06/20/2018 NC-1001 / / [id number] Tissue Nucell Med W/Matrix Nc-1001 Tissue NUTECH MED - [id number] Graft/Subs Implanted: Qty: 1 on 04/07/2018 by Antonio Tristan DPM 08/31/2022 NO-1440 / [id number] / [facility] Right: Toe NUTECH MED Implanted: Qty: 1 on 04/07/2018 by Antonio Jones DPM Procedures Comments Procedure Name Priority Date/Time Associated Diagnosis MR ABDOMEN WITH/WITHOUT Routine 04/21/2018 Abnormal liver enzymes IV CONTRAST 1:54 PM CDT POCT-CREATININE Routine 04/21/2018 1:27 PM CDT after 04/18/2018 Results * MR abdomen with/without IV contrast (04/21/2018 1:54 PM CDT) Specimen Narrative Performed At FINAL REPORT [facility]pipe MRI of the abdomen with and without [...] MD Report Verified Date/Time:04/21/2018 18:38:48 Reading Location: [facility] C013X [facility] Consult Reading Room Procedure Note [...] Follow-up is suggested for these lesions. Signed: Croby Marr MD Report Verified Date/Time: 04/21/2018 18:38:48 Reading Location: [address] Consult Reading Room Performing Organization Address City/[facility] Phone Number GE RIS * POC-Creatinine (04/21/2018 1:27 PM CDT) POC-Creatinine 0.7Comment: TESTED AT [facility] 0.6 - 1.3 mg/dL [address] [address] [facility] POC-EGFR 84 mL/min/1.73M2 [facility] Specimen Blood Performing Organization Address City/[facility]/Zipcode Phone Number [facility] [address] [place] [address] MEDICAL CENTER after 04/18/2018 Insurance Payer Benefit Subscriber ID Type Phone Address Plan / Group MEDICARE MEDICARE A xxxxxxxxxxx Medicare B MCR SUPPLEMENT/INDIVIDUAL [employer]ET[employer] xxxxxxxxxx SENIOR SUPPLEMENT AL
[2019-04-19 11:37] LABS: BASOPHILS # (AUTO) 0.1 (0.0-0.1); BASOPHILS % 0.7 % (0.0-1.0); EOSINOPHILS # (AUTO) 0.2 (0.0-0.4); HEMOGLOBIN 13.5 g/dL (12.0-16.0); LYMPHOCYTES # (AUTO) 2.4 (1.0-3.2); LYMPHOCYTES % 33.3 % (18.0-39.1); MEAN CORPUSCULAR HEMOGLOBIN 29.9 pg (28-32); MEAN CORPUSCULAR HGB CONC 33.8 g/dL (31-35); MEAN CORPUSCULAR VOLUME 88.5 fL (81-99); MONOCYTES # (AUTO) 0.6 (0.2-0.8); MONOCYTES % 7.7 % (4.4-11.3); PLATELET COUNT 255 x10e3/uL (140-360); RED BLOOD COUNT 4.52 x10e6/uL (3.6-5.1)
[2019-04-19 11:38] LABS: BILIRUBIN,URINE NEGATIVE (NEGATIVE); CLARITY,URINE SL CLOUDY (CLEAR); COLOR,URINE YELLOW (YELLOW); KETONES,URINE NEGATIVE (NEGATIVE); LEUKOCYTE ESTERASE ,URINE LARGE (NEGATIVE); NITRITE,URINE NEGATIVE (NEGATIVE); PROTEIN,URINE DIPSTICK NEGATIVE (NEGATIVE); URINE UROBILINOGEN 0.2 mg/dL (0.2 - 1)
[2019-04-19 11:42] LABS: INR 0.92; PROTHROMBIN TIME 12.8 seconds (11.9-14.5)
[2019-04-19 11:43] LABS: PARTIAL THROMBOPLASTIN TIME 29.7 seconds (23.8-35.5)
--- NOTE | 2019-04-19 11:49 | Diagnostic Imaging Report ---
EXAMINATION: CHEST 2 VIEWS INDICATION: ^ORDER PLACED BY ^[id number] ^1125 ^Y COMPARISON: CT chest 12/31/2018 FINDINGS: PA and lateral views TUBES and LINES: None. LUNGS: Lungs are well inflated. Stable mild subsegmental atelectasis in both lung bases. There is no evidence of pneumonia or pulmonary edema. PLEURA: No pleural effusion or pneumothorax. HEART AND MEDIASTINUM: The cardiomediastinal silhouette is unremarkable. BONES AND SOFT TISSUES: Partially visualized hardware in the lower cervical spine. Soft tissues are unremarkable. UPPER ABDOMEN: No free air under the diaphragm. IMPRESSION: No acute thoracic abnormality. Stable subsegmental atelectasis in both lung bases when compared to CT chest from 12/31/2018. Signed by: Dr. Coleen Farah M.D. on 04/19/2019 11:46 AM
[2019-04-19 11:52] LABS: ALANINE AMINOTRANSFERASE 32 IU/L (0-55); ALBUMIN 4.2 g/dL (3.5-5.0); ALKALINE PHOSPHATASE 73 IU/L (40-150); BLOOD UREA NITROGEN 14 mg/dL (7-26); BUN/CREATININE RATIO 17 (6-25); CALCIUM 9.8 mg/dL (8.4-10.2); CARBON DIOXIDE 26 mmol/L (22-29); CHLORIDE 103 mmol/L (98-107); CREATINE KINASE 47 IU/L (29-168); CREATININE, SERUM 0.83 mg/dL (0.57-1.11); EST GLOMERULAR FILTRATION RATE > 60 ML/MIN (60-); GLUCOSE 104 mg/dL (74-118); MAGNESIUM 2.3 MG/DL (1.3-2.1); SODIUM 141 mmol/L (136-145)
[2019-04-19 12:02] LABS: BACTERIA,URINE MODERATE /HPF; EPITHELIAL CELLS,URINE MANY /LPF; TRANSITIONAL EPI CELLS,URINE FEW
[2019-04-19] MEDS ORDERED: SODIUM CHLORIDE FLUSH 10 ML SYR INJ PRN (13:15)
[2019-04-19] MEDS ORDERED: CEFTRIAXONE SOD 1 GM/NS 50 ML 50 ML IV ONE (13:30)
--- OUTSIDE RECORDS SUMMARY | 2019-04-19 13:30 | XMS REPORT | Clinical Summary ---
Author Author KAILASH [facility] Address Unknown Phone Unavailable Care Team Providers Care Regional Forester Name Role Phone Liban Mooney PCP Allergies [...] medication. Currently, symptoms are being managed with [place]. She will be following up with [facility] Rheumatology in April 2018. [...] Team Description Date Type Specialty Vidhya Duncan, INSURANCE RISK ANALYST [address] [facility] [address], [place] [address] 1.5, [facility] 04/21/2019 Appointment Magnetic Resonance Imaging Implants Device Identifier Shelf Expiration Date Model / Serial / Lot Implanted Type Area Manufactur er 06/20/2018 NC-1001 / / [id number] Tissue Nucell Med W/Matrix Nc-1001 Tissue NUTECH MED - [id number] Graft/Subs Implanted: Qty: 1 on 04/07/2018 by Antonio Tristan DPM 08/31/2022 NO-1440 / [id number] / [facility] Right: Toe NUTECH MED Implanted: Qty: 1 on 04/07/2018 by Antonio Jones DPM Procedures Comments Procedure Name Priority Date/Time Associated Diagnosis MR ABDOMEN WITH/WITHOUT Routine 04/21/2018 Abnormal liver enzymes IV CONTRAST 1:54 PM CDT POCT-CREATININE Routine 04/21/2018 1:27 PM CDT after 04/18/2018 Results * MR abdomen with/without IV contrast (04/21/2018 1:54 PM CDT) Specimen Narrative Performed At FINAL REPORT [employer] MRI of the abdomen with and without [...] MD Report Verified Date/Time:04/21/2018 18:38:48 Reading Location: [facility] C013X [facility] Consult Reading Room Procedure Note Interface, External [...] Report Verified Date/Time: 04/21/2018 18:38:48 Reading Location: [address] Consult Reading Room Performing Organization Address City/[facility] Phone Number GE RIS * POC-Creatinine (04/21/2018 1:27 PM CDT) POC-Creatinine 0.7Comment: TESTED AT [facility] 0.6 - 1.3 mg/dL [address] [address] [facility] POC-EGFR 84 mL/min/1.73M2 [facility] Specimen Blood Performing Organization Address City/[facility]/Zipcode Phone Number [facility] [address] [place] [address] MEDICAL CENTER after 04/18/2018 Insurance Payer Benefit Subscriber ID Type Phone Address Plan / Group MEDICARE MEDICARE A xxxxxxxxxxx Medicare B MCR SUPPLEMENT/INDIVIDUAL [employer]ET[employer] xxxxxxxxxx SENIOR SUPPLEMENT AL
[2019-04-19] MEDS ORDERED: HEPARIN SOD (PORCINE) 5,000 UNIT/ML VIAL IV ONE (14:00)
--- NOTE | 2019-04-19 14:26 | NUR ---
Received patient via stretcher. AAOX4 to time, person, place, situation. Respirations even and unlabored. Tele #[phone] SR. Oriented patient to room. Instructed to use call light for assistance. Voiced understanding. Will continue to monitor.
[2019-04-19 15:15] VITALS: BP 143/71
[2019-04-19 15:22] VITALS: BP 143/71
--- NOTE | 2019-04-19 15:34 | Diagnostic Imaging Report ---
EXAM: CT Chest WITH contrast 04/19/2019 1:49 PM INDICATION: ^p.E. ^[id number] ^1420 COMPARISON: Chest radiograph 04/19/[address] chest 12/31/2018 TECHNIQUE: Spiral CT images of the chest were performed from the lung apices through the level of the adrenal glands after the IV contrast administration. Thin section reconstructions were obtained with special concentration on the pulmonary arteries. IV CONTRAST: 100 mL of Isovue-370 ORAL CONTRAST: None COMPLICATIONS: None RADIATION DOSE: Total DLP: 505.7 mGy*cm Estimated effective dose: (DLP x 0.015 x size factor) mSv CTDIvol has been reviewed. It is below the limits set by the Radiation Protocol Committee (RPC). FINDINGS: LINES/ TUBES: None. PULMONARY ARTERIES: No filling defects are identified in the main, right or left pulmonary arteries to their segmental and subsegmental levels, to suggest pulmonary embolism. The main pulmonary artery is normal in size. LUNGS AND AIRWAYS: Stable minimal scarring in both lung bases. No consolidations, reticulation of the lungs or honeycombing. Airways are normal. PLEURA: The pleural spaces are clear. HEART AND MEDIASTINUM: The thyroid gland is normal. No mediastinal, hilar or axillary lymphadenopathy. The heart is normal in size. Trace pericardial effusion. The thoracic aorta and pulmonary arteries are unremarkable. UPPER ABDOMEN: Mild diffuse low-attenuation of the liver parenchyma may represent an early hepatic steatosis. BONES: Partially visualized anterior fusion of the cervical spine. SOFT TISSUES: Unremarkable. IMPRESSION: No pulmonary embolism. Minimal scarring in both lung bases, stable. No new consolidations. Signed by: Dr. Coleen Farah M.D. on 04/19/2019 3:30 PM
[2019-04-19] MEDS: MORPHINE SULFATE INJ 4 MG/ML INJ 1ML IV PRN (15:44)
[2019-04-19] MEDS: WARFARIN SOD 5 MG TAB PO SCH (15:45)
[2019-04-19 15:56] VITALS: BP 143/71
[2019-04-19] MEDS ORDERED: XIIDRA EYE OP PRN (16:30)
--- NOTE | 2019-04-19 16:30 | NUR ---
aware of CT results
--- NOTE | 2019-04-19 16:40 | NUR ---
Paged Dr.Quraishi Bustillo to get clarification on heparin order. Awaiting for call back
[2019-04-19] MEDS ORDERED: METFORMIN HCL 500 MG TAB PO SCH (17:00)
--- NOTE | 2019-04-19 17:30 | NUR ---
Repaged Dr.Quraishi Bustillo to get clarification on heparin order. Awaiting for call back
[2019-04-19] MEDS: GABAPENTIN 300 MG CAP PO SCH (17:42)
--- NOTE | 2019-04-19 19:00 | NUR ---
Resting in bed talking on the phone. side rails upx2, call light within reach. NO s/s of acute distress noted.
--- NOTE | 2019-04-19 19:30 | NUR ---
Repaged Dr.Quraishi Bustillo to get clarification on heparin order. Awaiting for call back. Report given to Ezra on patient's status. Ezra ARENAS aware waiting for heparin clarification.
--- NOTE | 2019-04-19 19:30 | NUR ---
received call from Dr. [place], heparin orders clarified, no loading dose to be given and heparin to be given for PE protocol
[2019-04-19 20:00] VITALS: BP 109/76
[2019-04-19] MEDS ORDERED: HEPARIN 25,000 UNIT 1,100 UNIT in DEXTROSE 5% 250ML 250 ML IV SCH (20:00)
[2019-04-19] MEDS: METFORMIN HCL 500 MG TAB PO SCH (21:43)
[2019-04-19] MEDS: DIAZEPAM 5 MG TAB PO SCH (21:43)
[2019-04-19 22:45] VITALS: BP 109/76
[2019-04-20] VITALS (8 sets, daily range): BP systolic 110–134; BP diastolic 61–78
[2019-04-20 03:24] LABS: BASOPHILS % 0.4 % (0.0-1.0); EOSINOPHILS # (AUTO) 0.3 (0.0-0.4); EOSINOPHILS % 3.5 % (0.0-6.0); HEMATOCRIT 37.6 % (34.2-44.1); HEMOGLOBIN 12.4 g/dL (12.0-16.0); LYMPHOCYTES # (AUTO) 3.4 (1.0-3.2); LYMPHOCYTES % 45.9 % (18.0-39.1); MEAN CORPUSCULAR HEMOGLOBIN 29.5 pg (28-32); MEAN CORPUSCULAR VOLUME 89.5 fL (81-99); MONOCYTES # (AUTO) 0.8 (0.2-0.8); NEUTROPHILS % 40.1 % (38.7-80.0); PLATELET COUNT 223 x10e3/uL (140-360); RED CELL DISTRIBUTION WIDTH 13.1 % (11.7-14.4)
[2019-04-20 03:41] LABS: ALANINE AMINOTRANSFERASE 25 IU/L (0-55); ALBUMIN 3.6 g/dL (3.5-5.0); ALBUMIN/GLOBULIN RATIO 1.1 (0.8-2.0); ALKALINE PHOSPHATASE 63 IU/L (40-150); ANION GAP 13.4 mmol/L (8-16); BLOOD UREA NITROGEN 15 mg/dL (7-26); BUN/CREATININE RATIO 19 (6-25); CALCIUM 9.5 mg/dL (8.4-10.2); CARBON DIOXIDE 27 mmol/L (22-29); CHLORIDE 104 mmol/L (98-107); CHOL/HDL RATIO 3.9 (3.0-3.6); CHOLESTEROL 223 MD/DL (0-199); EST GLOMERULAR FILTRATION RATE > 60 ML/MIN (60-); GLUCOSE 106 mg/dL (74-118); HDL CHOLESTEROL 57 MG/DL (40-60); LDL CHOLESTEROL 138 MG/DL (60-130); POTASSIUM 3.4 mmol/L (3.5-5.1); SODIUM 141 mmol/L (136-145); TRIGLYCERIDES 142 MG/DL (0-149)
[2019-04-20 04:09] LABS: CREATINE KINASE 37 IU/L (29-168)
--- NOTE | 2019-04-20 04:10 | NUR ---
PTT 84.1, heparin dose decreased per protocol
[2019-04-20 05:57] LABS: INR 0.91; PROTHROMBIN TIME 12.7 seconds (11.9-14.5)
--- NOTE | 2019-04-20 06:33 | Diagnostic Imaging Report ---
EXAMINATION: CHEST SINGLE (PORTABLE) INDICATION: ^chest pain ^[id number] ^0555 ^Y COMPARISON: 04/19/2019 FINDINGS: AP view TUBES and LINES: None. LUNGS: Lungs are well inflated. There is no evidence of pneumonia or pulmonary edema. PLEURA: No pleural effusion or pneumothorax. HEART AND MEDIASTINUM: The cardiomediastinal silhouette is unremarkable. BONES AND SOFT TISSUES: No acute osseous lesion. Cervical spine fusion hardware. Soft tissues are unremarkable. UPPER ABDOMEN: No free air under the diaphragm. IMPRESSION: No acute thoracic abnormality. Signed by: Dr. Cristóbal Castillo MD on 04/20/2019 6:30 AM
--- NOTE | 2019-04-20 07:05 | NUR ---
PATIENT IS IN STABLE CONDITION WITH NO S/S OF RESPIRATORY DISTRESS. PATIENT DENIES PAIN. IV HEPARIN INFUSING AT THIS TIME. TELEMETRY APPLIED. CALL LIGHT IS WITHIN REACH, PATIENT INSTRUCTED TO CALL FOR ASSISTANCE NEEDED.
--- NOTE | 2019-04-20 07:39 | History and Physical ---
CHIEF COMPLAINT: Comes in with chest pain. HISTORY OF PRESENTING ILLNESS: Ms. Barrett has a history of pulmonary embolism, has a history of DVT, history of anticoagulation, was in her usual state of health until the patient woke up in the morning of admission and felt a chest pain, which woke her up, described as 6/10 in intensity, worsened by breathing, and the patient with a history of pulmonary embolism, did not want to take a chance, came into the emergency room, was found to have subtherapeutic INRs and admitted for possible DVT and possible PE. PAST MEDICAL HISTORY: History of hypertension, history of diabetes mellitus, history of chronic low back pain, history of chronic anticoagulation, and reflux esophagitis. MEDICATIONS: She takes at home are diazepam 5 mg at bedtime, gabapentin 600 mg twice a day, hydrochlorothiazide 25 mg daily, hydrocodone 7.5 q.4 hours as needed, metformin 500 mg twice a day, and Xiidra drops in both eyes twice a day. PAST SURGICAL HISTORY: History of hysterectomy, cholecystectomy, and laminectomy. The patient also had an ACDF done by Dr. Asencio recently. The patient also had fractured right hand, rotator cuff tear repaired. FAMILY HISTORY: Cancer in brothers and mother with arthritis. ALLERGIES: REACTIONS TO SULFONAMIDE ANTIBIOTICS. REVIEW OF SYSTEMS: Positive for chest pain. No shortness of breath. No nausea, vomiting, or diarrhea. No constipation. No rectal bleeding. No hematochezia. No hematemesis. No blurry vision. No diplopia. No paresthesias. No hyperesthesias. PHYSICAL EXAMINATION: VITAL SIGNS: Temperature is 97.3, pulse of 62, respirations 17, blood pressure is 118/65. HEENT: Normocephalic, atraumatic. Pupils are reactive to light and accommodation. CVS: S1 and S2 normal. Regular rate and rhythm. ABDOMEN: Nontender, nondistended. EXTREMITIES: No clubbing, no cyanosis, no edema. LABORATORY VALUES: INR 0.92 when she came in. Chemistry; sodium of 141, potassium 4.0, BUN of 14, creatinine 0.83, magnesium of 2.3. BNP was less than 10. The patient's total cholesterol 223, LDL 138, HDL 57, cholesterol ratio of 3.9. Urine was essentially normal except for moderate bacteria. IMAGING STUDIES: Chest x-ray was done, showed no acute thoracic abnormalities. CT of the chest did not show any pulmonary embolism. CTA, no pulmonary embolism. ASSESSMENT: 1. Chest pain, rule out acute coronary syndrome. 2. History of pulmonary embolism. CTA negative. 3. Subtherapeutic INRs. The patient is on heparin drip and also corrected to INR of between 2.5 and 3. We will continue to monitor the patient. Also, Dr. Ruiz is on-board. The patient also has history of deep venous thrombosis, diagnosis has been excluded. 4. Hyperlipidemia. We will start statins. 5. Hypertension. Restart her home medications. Further recommendation per clinical course. We will continue to monitor the patient along with Dr. Ruiz. Expected 2 to 3 days to get therapeutic INRs. MD JIMMIE Islas/MODL /[id number]
[2019-04-20] MEDS: FAMOTIDINE 20 MG/2 ML VIAL IV SCH (09:05)
[2019-04-20] MEDS: GABAPENTIN 300 MG CAP PO SCH ×2 (09:06→17:05)
[2019-04-20] MEDS: METFORMIN HCL 500 MG TAB PO SCH ×2 (09:06→17:05)
[2019-04-20] MEDS: HYDROCHLOROTHIAZIDE 25 MG TAB PO SCH (09:06)
--- NOTE | 2019-04-20 10:06 | NUR ---
PTT WAS 85.7 THIS MORNING; RATE CHANGED TO 9CC/HR
[2019-04-20] MEDS ORDERED: POTASSIUM CHLORIDE 20MEQ/100ML 200 ML IV ONE (10:30)
[2019-04-20] MEDS ORDERED: SODIUM CHLORIDE 0.9% 500ML 500 ML ONE ×2 (12:10→17:24)
[2019-04-20] MEDS: WARFARIN SOD 5 MG TAB PO SCH (17:05)
--- NOTE | 2019-04-20 19:00 | NUR ---
PATIENT IN STABLE CONDITION WITH NO S/S OF RESPIRATORY DISTRESS. NO PAIN VOICED. IV HEPARIN INFUSING AT 9CC/HR. CALL LIGHT IS WITHIN REACH, PATIENT INSTRUCTED TO CALL FOR ASSISTANCE NEEDED. BEDSIDE REPORT GIVEN TO ONCOMING NURSE.
[2019-04-20] MEDS: DIAZEPAM 5 MG TAB PO SCH (20:54)
--- NOTE | 2019-04-20 23:30 | NUR ---
PTT 80.1, no change to heparin rate, PTT daily per protocol
[2019-04-21] VITALS (8 sets, daily range): BP systolic 108–150; BP diastolic 60–80
[2019-04-21 06:47] LABS: INR 0.95; PROTHROMBIN TIME 13.2 seconds (11.9-14.5)
[2019-04-21 06:58] LABS: ANION GAP 12.8 mmol/L (8-16); BLOOD UREA NITROGEN 12 mg/dL (7-26); BUN/CREATININE RATIO 14 (6-25); CALCIUM 9.5 mg/dL (8.4-10.2); CARBON DIOXIDE 28 mmol/L (22-29); CHLORIDE 103 mmol/L (98-107); CREATININE, SERUM 0.83 mg/dL (0.57-1.11); EST GLOMERULAR FILTRATION RATE > 60 ML/MIN (60-); GLUCOSE 100 mg/dL (74-118); POTASSIUM 3.8 mmol/L (3.5-5.1); SODIUM 140 mmol/L (136-145)
--- NOTE | 2019-04-21 07:05 | NUR ---
PATIENT IS ALERT AND IN STABLE CONDITION WITH NO S/S OF RESPIRATORY DISTRESS. NO PAIN VOICED. 02 APPLIED. TELEMETRY APPLIED. IV HEPARIN INFUSING. CALL LIGHT IS WITHIN REACH, PATIENT INSTRUCTED TO CALL FOR ASSISTANCE NEEDED.
[2019-04-21] MEDS: HYDROCHLOROTHIAZIDE 25 MG TAB PO SCH (08:02)
[2019-04-21] MEDS: METFORMIN HCL 500 MG TAB PO SCH ×2 (08:02→17:48)
[2019-04-21] MEDS: FAMOTIDINE 20 MG/2 ML VIAL IV SCH (08:02)
[2019-04-21] MEDS: GABAPENTIN 300 MG CAP PO SCH ×2 (08:02→17:48)
[2019-04-21] MEDS: MORPHINE SULFATE INJ 4 MG/ML INJ 1ML IV PRN ×2 (14:07→22:33)
[2019-04-21] MEDS: WARFARIN SOD 5 MG TAB PO SCH (17:48)
--- NOTE | 2019-04-21 18:37 | Progress Note ---
DATE: 04/21/2019 SUBJECTIVE: This is a 64-year-old lady who comes in with chest pain, rule out pulmonary embolism, which has been ruled out. DVT has been ruled out. The patient has been found to be subtherapeutic for her previous pulmonary embolism. The patient is currently on heparin drip. No complaints voiced by the patient. OBJECTIVE: VITAL SIGNS: Temperature is 97.6, pulse is 74, respirations of 18, blood pressure is 108/67, pulse oximetry of 95%. HEENT: Normocephalic, atraumatic. Pupils are reactive to light and accommodation. CVS: S1, S2 normal. Regular rate and rhythm. ABDOMEN: Nontender, nondistended. EXTREMITIES: No clubbing, no cyanosis, no edema. LABORATORY VALUES: The patient's coags today 13.2 and 0.95. ASSESSMENT: 1. Chest pain, rule out acute coronary syndrome. Her chest pain ruled out. 2. History of pulmonary embolism. Continue on warfarin. The patient is on heparin drip, subtherapeutic INR. The patient's INR has been adjusted every day. The patient is currently on warfarin. 3. Hyperlipidemia. Start with statins. 4. Hypertension. Continue with antihypertensive. 5. The patient expected to stay for another day or two to regulate her INR to be between 2.5 and 3. Further recommendation per clinical course. We will continue to monitor the patient along with Dr. Ruiz. MD BLADIMIR IslasJ/MODL /[id number]
--- NOTE | 2019-04-21 19:10 | NUR ---
PATIENT IS IN STABLE CONDITION WITH NO S/S OF RESPIRATORY DISTRESS. NO PAIN VOICED. IV HEPARIN INFUSING. TELEMETRY APPLIED. CALL LIGHT IS WITHIN REACH, PATIENT INSTRUCTED TO CALL FOR ASSISTANCE NEEDED. BEDSIDE REPORT GIVEN TO ONCOMING NURSE.
[2019-04-21] MEDS: DIAZEPAM 5 MG TAB PO SCH (21:36)
[2019-04-22] VITALS (7 sets, daily range): BP systolic 112–125; BP diastolic 55–74
[2019-04-22] MEDS: MORPHINE SULFATE INJ 4 MG/ML INJ 1ML IV PRN ×2 (02:35→19:07)
[2019-04-22 06:23] LABS: INR 1.17; PROTHROMBIN TIME 15.5 seconds (11.9-14.5)
--- NOTE | 2019-04-22 07:30 | NUR ---
RECD PT UP IN BED AAOX3,DENIES PAIN,
--- NOTE | 2019-04-22 07:41 | Progress Note ---
DATE: 04/22/2019 SUBJECTIVE: The patient is a 64-year-old lady with a history of pulmonary embolism, with a history of DVT, came in with chest pain, ruled out myocardial infarction. The patient has had subtherapeutic INRs. The patient's INR is being adjusted. The patient is on heparin protocol and on warfarin 10 mg. Current INR is 1.17. OBJECTIVE: VITAL SIGNS: Temperature is 98.1, pulse of 74, respirations of 20, blood pressure is 112/63, and pulse oximetry of 99% on room air. HEENT: Normocephalic and atraumatic. Pupils are reactive to light and accommodation. CVS: S1 and S2 normal. Regular rate and rhythm. ABDOMEN: Nontender and nondistended. EXTREMITIES: No clubbing, no cyanosis, no edema. NEUROLOGIC: No focal neurological changes. LABORATORY VALUES: INR is 1.17, PT of 15.5. MICROBIOLOGY: None done. ASSESSMENT: 1. Chest pain, rule out acute coronary syndrome. 2. History of pulmonary embolism with subtherapeutic INRs. Continue with heparin drip. 3. Hyperlipidemia, continue with statins. 4. Hypertension, continue with antihypertensives. Continue to monitor the patient. The patient's case has been discussed with Dr. Ruiz, who wants the patient to stay and still continue with heparin drip until therapeutic INRs have been achieved. Further recommendation per clinical course. MD JIMMIE Islas/MODL /[id number]
[2019-04-22] MEDS: METFORMIN HCL 500 MG TAB PO SCH ×2 (08:49→17:00)
[2019-04-22] MEDS: FAMOTIDINE 20 MG/2 ML VIAL IV SCH (08:49)
[2019-04-22] MEDS: HYDROCHLOROTHIAZIDE 25 MG TAB PO SCH (08:51)
[2019-04-22] MEDS: GABAPENTIN 300 MG CAP PO SCH ×2 (08:51→17:00)
[2019-04-22 10:07] LABS: FREE THYROXINE INDEX 2.2464 (1.4-3.8); THYROID STIMULATING HORMONE 1.993 uIU/mL (0.350-4.940)
--- NOTE | 2019-04-22 12:14 | NUR ---
ASSESSMENT: Spiritual distress Pt overwhelmed by her and her 's illnesses. Pt states she is scared about uncertainty of her diagnosis. She is her 's caregiver and has been the caregiver of several members of her family throughout life. Pt identifies as Orthodox. Pt values family, especially her grandchildren. Intervention: Provided unhurried empathic pastoral listening. Facilitated illness review. Provided prayer and information on how to reach bus [employer], if needed. Outcome: Pt expressed appreciation for visit. Will follow as able. DEMARCO LOREDO Business Intelligence Manager Spiritual Care Department O: [phone] Pager: [phone] ([phone] number calling from)
[2019-04-22] MEDS: HYDROCODONE/APAP 7.5MG-325MG 1 EA TAB PO PRN (15:00)
[2019-04-22] MEDS: WARFARIN SOD 5 MG TAB PO SCH (17:00)
[2019-04-22] MEDS: DIAZEPAM 5 MG TAB PO SCH (21:31)
[2019-04-23] VITALS (8 sets, daily range): BP systolic 105–131; BP diastolic 62–71
[2019-04-23 06:06] LABS: INR 1.46; PROTHROMBIN TIME 18.3 seconds (11.9-14.5)
--- NOTE | 2019-04-23 07:33 | Progress Note ---
DATE: 04/23/2019 SUBJECTIVE: The patient is a 64-year-old female, who comes in with subtherapeutic INR, chest pain, and also history of PE and history of extensive DVT. Currently, the patient is still not adequately anticoagulated, on heparin drip. Continues to improvise on her INR. No chest pain. No shortness of breath. No nausea, vomiting, or diarrhea. No constipation. No rectal bleeding. No hematochezia. No hematemesis. No bleeding diathesis noted either. OBJECTIVE: VITAL SIGNS: Temperature is 99.6, pulse of 76, blood pressure is 105/62. HEENT: Normocephalic, atraumatic. Pupils are reactive to light and accommodation. CVS: S1 and S2 normal. Regular rate and rhythm. ABDOMEN: Nontender, nondistended. EXTREMITIES: No clubbing, no cyanosis, and/or no edema. LABORATORY VALUES: Coags today was 18.3 and 1.46. PTT was 70.8. White count has not been checked since 8th. ASSESSMENT: 1. Chest pain. 2. Ruled out coronary syndrome. 3. History of pulmonary embolism and extensive deep venous thrombosis with subtherapeutic INRs. Continue heparin drip and bridged with warfarin. 4. Hyperlipidemia and hypertension. Continue with CV medication. Continue to monitor the patient. Further recommendation per clinical course. The patient can be discharge when therapeutic INRs have been achieved. MD JIMMIE Islas/MODL /[id number]
[2019-04-23] MEDS: GABAPENTIN 300 MG CAP PO SCH ×2 (09:30→17:28)
[2019-04-23] MEDS: FAMOTIDINE 20 MG TAB PO SCH (09:30)
[2019-04-23] MEDS: HYDROCHLOROTHIAZIDE 25 MG TAB PO SCH (09:30)
[2019-04-23] MEDS: METFORMIN HCL 500 MG TAB PO SCH ×2 (09:30→17:28)
[2019-04-23] MEDS: MORPHINE SULFATE INJ 4 MG/ML INJ 1ML IV PRN ×2 (09:44→22:00)
--- NOTE | 2019-04-23 09:45 | NUR ---
PT C/O BACK PAIN MEDICATED
--- NOTE | 2019-04-23 10:05 | NUR ---
Follow up visit. Pt appreciative of previous visit and states, "I'm better today." Pt anticipating possible discharge Saturday. Pt states her needs her help at home and is thinking about "taking him outside more" to help his illness. Will continue to follow as able. DEMARCO LOREDO Eligibility Worker Spiritual Care Department O: [phone] Pager: [phone] ([phone] number calling from)
--- NOTE | 2019-04-23 12:30 | NUR ---
PT IN BED SLEEPING NO S/S DISCOMFORT,
[2019-04-23] MEDS: WARFARIN SOD 5 MG TAB PO SCH (17:27)
--- NOTE | 2019-04-23 17:54 | NUR ---
PT UP IN BED PAIN LEVEL 3 TO BACK,NO DISTRESS NOTED
[2019-04-23] MEDS: DIAZEPAM 5 MG TAB PO SCH (21:20)
--- NOTE | 2019-04-23 22:00 | NUR ---
PATIENT COMPLAINED OF LOWER BACK PAIN, MEDICATION GIVEN. WILL CONTINUE TO MONITOR.
[2019-04-24] VITALS (9 sets, daily range): BP systolic 118–131; BP diastolic 60–87
--- NOTE | 2019-04-24 00:30 | NUR ---
PATIENT RESTING COMFORTABLY BED, NO DISTRESS NOTED. PATIENT HAS NO COMPLAINTS OF PAIN AT THIS TIME. BED IS LOCKED IN LOWEST POSITION, CALL LIGHT WITHIN REACH, WILL CONTINUE TO MONITOR.
--- NOTE | 2019-04-24 07:10 | NUR ---
PATIENT IS AWAKE, ALERT, AND IN STABLE CONDITION WITH NO S/S OF RESPIRATORY DISTRESS. PATIENT C/O BACK PAIN 02/20. IV HEPARIN INFUSING. TELEMETRY APPLIED. CALL LIGHT IS WITHIN REACH- PATIENT INSTRUCTED TO CALL FOR ASSISTANCE NEEDED.
[2019-04-24 07:11] LABS: BASOPHILS % 0.5 % (0.0-1.0); EOSINOPHILS # (AUTO) 0.3 (0.0-0.4); EOSINOPHILS % 3.3 % (0.0-6.0); HEMATOCRIT 39.6 % (34.2-44.1); HEMOGLOBIN 13.1 g/dL (12.0-16.0); LYMPHOCYTES # (AUTO) 3.2 (1.0-3.2); LYMPHOCYTES % 39.3 % (18.0-39.1); MEAN CORPUSCULAR HEMOGLOBIN 29.5 pg (28-32); MEAN CORPUSCULAR HGB CONC 33.1 g/dL (31-35); MEAN CORPUSCULAR VOLUME 89.2 fL (81-99); MONOCYTES % 12.8 % (4.4-11.3); NEUTROPHILS # (AUTO) 3.5 (2.1-6.9); NEUTROPHILS % 43.7 % (38.7-80.0); PLATELET COUNT 218 x10e3/uL (140-360); RED BLOOD COUNT 4.44 x10e6/uL (3.6-5.1); RED CELL DISTRIBUTION WIDTH 12.6 % (11.7-14.4)
[2019-04-24 07:13] LABS: ANION GAP 13.6 mmol/L (8-16); BLOOD UREA NITROGEN 13 mg/dL (7-26); BUN/CREATININE RATIO 16 (6-25); CALCIUM 9.9 mg/dL (8.4-10.2); CARBON DIOXIDE 30 mmol/L (22-29); CHLORIDE 95 mmol/L (98-107); CREATININE, SERUM 0.82 mg/dL (0.57-1.11); EST GLOMERULAR FILTRATION RATE > 60 ML/MIN (60-); GLUCOSE 110 mg/dL (74-118); POTASSIUM 3.6 mmol/L (3.5-5.1); SODIUM 135 mmol/L (136-145)
[2019-04-24 07:33] LABS: INR 1.79; PROTHROMBIN TIME 21.4 seconds (11.9-14.5)
--- NOTE | 2019-04-24 07:36 | Progress Note ---
DATE: 04/24/2019 SUBJECTIVE: The patient is a 64-year-old female, who comes in with subtherapeutic INR, chest pain and also history of pulmonary embolism and DVTs in the past of extensive. The patient is asymptomatic. No chest pain. No shortness of breath. No nausea, vomiting, or diarrhea. OBJECTIVE: VITAL SIGNS: On examination, temperature is 97.2, pulse of 65, respirations of 18, blood pressure is 119/60, and pulse oximetry 93% on room air. HEENT: Normocephalic and atraumatic. Pupils are reactive to light and accommodation. CVS: S1 and S2 normal. Regular rate and rhythm. ABDOMEN: Nontender and nondistended. EXTREMITIES: No clubbing, no cyanosis, no edema. LABORATORY DATA: Laboratory values are pending. Chemistries, coags and CBC are pending. We will need that for possible discharge today. ASSESSMENT: 1. Chest pain, rule out coronary artery syndrome. 2. History of chronic pulmonary embolism and also extensive deep vein thrombosis with subtherapeutic INR. PLAN: 1. Plan is to bridge heparin to warfarin, awaiting INR to be between 2 and 3. 2. Hyperlipidemia and hypertension. Continue with CV medication. The patient has been cleared for discharge, pending INR to be between therapeutic range. Further recommendation per clinical course. The patient also has been followed by Dr. Ruiz, who is maintaining and monitoring her INR. MD JIMMIE Islas/MODL /[id number]
[2019-04-24] MEDS: GABAPENTIN 300 MG CAP PO SCH ×2 (08:34→16:28)
[2019-04-24] MEDS: METFORMIN HCL 500 MG TAB PO SCH ×2 (08:34→16:28)
[2019-04-24] MEDS: FAMOTIDINE 20 MG TAB PO SCH (08:34)
[2019-04-24] MEDS: HYDROCHLOROTHIAZIDE 25 MG TAB PO SCH (08:34)
[2019-04-24] MEDS: MORPHINE SULFATE INJ 4 MG/ML INJ 1ML IV PRN ×2 (08:35→21:42)
--- NOTE | 2019-04-24 10:40 | NUR ---
ASSESSMENT: Spiritual concern Pt debating family discussion concerning 's health. Pt states she is trying to decide whether or not having an open conversation with family about severity of 's illness. Intervention: Provided empathic listening. Encouraged self-care and transparency. Provided prayer. Outcome: Pt expressed appreciation for support. Will continue to follow as able. DEMARCO Dukelain Spiritual Care Department O: [phone] Pager: [phone] ([phone] number calling from)
--- NOTE | 2019-04-24 15:14 | NUR ---
CM SPOKE TO PATIENT AT BEDSIDE REGARDING IMM LETTER. IMM LETTER GIVEN WITH EXPLANATION BASED ON ANTICIPATED DISCHARGE DATE. ORIGINAL SIGNED AND PLACED IN CHART; COPY OF ORIGINAL DOCUMENT GIVEN TO PATIENT AT BEDSIDE AND PLACED IN CARE TRANSITION FOLDER. CM CONTACT INFORMATION GIVEN TO PATIENT FOR ANY NEEDS OR CONCERNS. PATIENT WITH NO FURTHER QUESTIONS.
[2019-04-24] MEDS: WARFARIN SOD 5 MG TAB PO SCH (16:28)
--- NOTE | 2019-04-24 17:52 | NUR ---
Nutrition LOS Note RD Recommendation(s) for Physician / Nutrition Prescription: continue with diet as prescribed Plan of Care: Patient has been screened and assessed for nutrition risk. At this time, the patient does not pose any nutrition risk. No further nutrition intervention is warranted at this time. Will re-evaluate if consulted by medical staff. Nutrition reason for involvement: LOS Primary Dx: subtherapeutic INR, chest pain PMH: pulmonary embolism, HLD, HTN, DVT Ht: 62in Wt: 165lb BMI: 30.2kg/m2 IBW: 110lb +/- 10% RD Assessment: (04/24) 64yo F, who was admitted for chest pain. Visited pt in the room. Pt reported fair appetite with 50 100% meal intake since admission. No GI complains reported. Normal BM. Pt denied any chewing or swallowing difficulty. Pt is on anticoagulant and aware of foods that are high in vitamin K. All questions have been answered. Malnutrition Evaluation (04/24/19) The patient does not meet criteria for a specified degree of malnutrition at this time. Will re-evaluate at follow-up as appropriate. Diet Education Needs Assessment: Diet education not indicated. Nutrition Care Level: Low Signed by Jennifer Adhikari, MS, RD, LD
--- NOTE | 2019-04-24 19:18 | NUR ---
PATIENT IS AWAKE AND IN STABLE CONDITION WITH NO S/S OF RESPIRATORY DISTRESS. NO PAIN VOICED. IV HEPARIN INFUSING. TELEMETRY APPLIED. CALL LIGHT IS WITHIN REACH, PATIENT INSTRUCTED TO CALL FOR ASSISTANCE NEEDED. BEDSIDE REPORT GIVEN TO ONCOMING NURSE.
--- NOTE | 2019-04-24 20:20 | NUR ---
RECEIVED PT IN BEDAOX3 .RESPIRATIONS ARE EVEN AND UNLABORED DENIES PAIN .CALL LIGHT WITH IN REACH .CONTINUE TO MONITOR
[2019-04-24] MEDS: DIAZEPAM 5 MG TAB PO SCH (20:38)
[2019-04-25 04:20] VITALS: BP 109/74
--- NOTE | 2019-04-25 06:35 | NUR ---
PT RESTING NO ACUTE DISTRESS NOTED CALL LIGHT WITH IN REACH .CONTINUE TO MONITOR
--- NOTE | 2019-04-25 07:20 | NUR ---
PATIENT IS IN STABLE CONDITION WITH NO S/S OF RESPIRATORY DISTRESS. PATIENT C/O RIGHT HIP PAIN. TELEMETRY APPLIED. CALL LIGHT IS WITHIN REACH, PATIENT INSTRUCTED TO CALL FOR ASSISTANCE NEEDED.
--- NOTE | 2019-04-25 07:24 | NUR ---
BEDSIDE REPORT GIVEN TO THE ONCOMING NURSE
[2019-04-25] MEDS: FAMOTIDINE 20 MG TAB PO SCH (07:43)
[2019-04-25] MEDS: HYDROCODONE/APAP 7.5MG-325MG 1 EA TAB PO PRN (07:44)
[2019-04-25 07:57] LABS: INR 2.38; PROTHROMBIN TIME 26.7 seconds (11.9-14.5)
[2019-04-25 08:14] VITALS: BP 124/77
[2019-04-25] MEDS: HYDROCHLOROTHIAZIDE 25 MG TAB PO SCH (08:15)
[2019-04-25] MEDS: GABAPENTIN 300 MG CAP PO SCH (08:15)
[2019-04-25] MEDS: METFORMIN HCL 500 MG TAB PO SCH (08:15)
--- NOTE | 2019-04-25 08:48 | Progress Note ---
DATE: 04/25/2019 SUBJECTIVE: The patient is a 64-year-old female, who comes in with chest pain. The patient came in also with subtherapeutic INR. The patient is on heparin drip and warfarin has been changed accordingly to get INR between 2 and 3. Asymptotic. No chest pain. No shortness of breath. No lower extremity edema. No swelling. OBJECTIVE: VITAL SIGNS: Temperature is 97.5, pulse of 67, blood pressure is 109/74. HEENT: Normocephalic, atraumatic. Pupils are reactive to light and accommodation. CVS: S1, S2 normal. Regular rate and rhythm. ABDOMEN: Nontender and nondistended. EXTREMITIES: No clubbing, no cyanosis, no edema. LABORATORY VALUES: Coags are pending today. ASSESSMENT: 1. Chest pain, rule out coronary syndrome. 2. History of chronic pulmonary embolism and an extensive deep vein thrombosis with subtherapeutic INR. PLAN: Plan to continue with heparin drips. Awaiting INR to be between 2 and 3, bridge to warfarin at 15 mg. The patient can be discharged today if INR is therapeutic. Warfarin 5 mg extra will be given to her, total of 15 mg. Plan to follow up with primary care physician and also with Dr. Ruiz as an outpatient. MD BLADIMIR IslasJ/MODL /[id number]
[2019-04-25 08:55] VITALS: BP 124/77
[2019-04-25 11:13] VITALS: BP 130/78
[2019-04-25] MEDS ORDERED: COUMADIN5 MG PO (14:08)
--- NOTE | 2019-04-25 17:37 | NUR ---
PATIENT DISCHARGE HOME- PATIENT OFF THE UNIT AT 1458 PER WHEELCHAIR ACCOMPANIED BY STAFF MEMBER TO THE FRONT LOBBY. PATIENT IS IN STABLE CONDITION WITH NO S/S OF RESPIRATORY DISTRESS. NO PAIN VOICED. IV'S REMOVED WITH TIP INTACT. DISCHARGE TEACHING, INSTRUCTIONS, AND MEDICATION GIVEN TO THE PATIENT. ALL PERSONAL ITEMS TAKEN WITH THE PATIENT.
--- NOTE | 2019-05-28 18:23 | Consultation ---
DATE OF CONSULTATION: 04/19/2019 HISTORY OF PRESENT ILLNESS: Lucina Barrtet is a 64-year-old white female, who presented with history of pulmonary embolus, chest pains. An INR of only 0.92. PAST MEDICAL HISTORY: History of DVT, history of pulmonary emboli. SOCIAL HISTORY: Noncontributory. FAMILY HISTORY: Noncontributory. ALLERGIES: REPORTED NONE. MEDICATIONS: At this time: 1. Ceftriaxone. 2. Pepcid. 3. Carafate. 4. Heparin. 5. Coumadin. REVIEW OF SYSTEMS: HEENT: Normal. CARDIAC: History of chest pains. RESPIRATORY: History of pulmonary emboli. GI: Normal. : Normal. MUSCULOSKELETAL: Normal. SKIN AND BREASTS: Normal. NEUROENDOCRINE: Essentially normal. PHYSICAL EXAMINATION: GENERAL: A moderately-built female. No palpable adenopathy. HEART: Within normal limits. LUNGS: Clear. ABDOMEN: Obese. RECTAL: Deferred. VAGINAL: Deferred. CENTRAL NERVOUS SYSTEM: Essentially normal. EXTREMITIES: Essentially normal. IMPRESSION: 1. History of pulmonary embolus. 2. 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 3. Poor anticoagulation. PLAN: Continue heparin and Coumadin as the INR is subtherapeutic. The patient will be observed closely by me. The patient subsequently was sent on 15 mg of Coumadin a day. The patient was suggested to see me back in the office in one week for a PT/INR. María Elena Ruiz MD MAQ/MODL /[id number] cc: Kvng Barth MD
--- NOTE | 2019-06-12 00:53 | Discharge Summary ---
HISTORY: The patient admitted to the hospital with and history of PE and the patient had some chest pain, was found to be anticoagulated. The patient's INR was very elevated and was stopped by Oncology and once the patient reached the floor, the patient's INR was less than 0.91. The patient was restarted back on warfarin. Chest pain ruled out. Troponin was negative. Potassium was replaced as needed. Electrolytes replaced as needed. CBC and CMP were done on daily basis. The patient's warfarin increased to 5 mg. The patient was finally within therapeutic range between 2 and 3. The patient was discharged home. FINAL DIAGNOSIS: Chest pain, subtherapeutic INR and recurrent PE. For further information, look in the chart. For medicines on discharge, look in medical reconciliation sheet. MD BLADIMIR IslasJ/MODL /[id number]
== END 2019-04-25 15:13 | disposition home or self-care (01) | DRG 948 ==
LOC: ER 11:05 → ERHOLD 13:27 → MED/SURG3 14:22
PROVIDERS: ADMIT Family Medicine; ATTEND Family Medicine
DX: R79.1 Abnormal coagulation profile (principal); R07.89 Other chest pain; I10 Essential (primary) hypertension; E11.9 Type 2 diabetes mellitus without complications; K21.0 Gastro-esophageal reflux disease with esophagitis; E78.5 Hyperlipidemia, unspecified; Z83.3 Family history of diabetes mellitus; Z82.49 Family history of ischemic heart disease and other diseases of the circulatory system; Z86.711 Personal history of pulmonary embolism; Z88.2 Allergy status to sulfonamides; Z86.718 Personal history of other venous thrombosis and embolism; Z79.01 Long term (current) use of anticoagulants; Z79.84 Long term (current) use of oral hypoglycemic drugs
CPT/HCPCS: 36415; 71045; 71046; 71260; 80048; 80053; 80061; 81001; 82550; 82553; 83735; 83880; 84436; 84443; 84479; 84484; 85025; 85379; 85610; 85730; 93005; 99285; J0696; J1644; J2270; J3480; J7040

== ENCOUNTER → 2019-04-29 | Outpatient (CLI) | payer MEDICARE, OTHER ==
[~2019-04-29] MED LIST changes: +COUMADIN5 MG PO
[2019-04-29 12:25] LABS: BASOPHILS % 0.4 % (0.0-1.0); EOSINOPHILS # (AUTO) 0.2 (0.0-0.4); EOSINOPHILS % 2.5 % (0.0-6.0); HEMOGLOBIN 12.9 g/dL (12.0-16.0); LYMPHOCYTES # (AUTO) 2.4 (1.0-3.2); LYMPHOCYTES % 34.3 % (18.0-39.1); MEAN CORPUSCULAR HEMOGLOBIN 29.9 pg (28-32); MEAN CORPUSCULAR HGB CONC 33.9 g/dL (31-35); MONOCYTES # (AUTO) 0.6 (0.2-0.8); NEUTROPHILS # (AUTO) 3.7 (2.1-6.9); NEUTROPHILS % 53.5 % (38.7-80.0); PLATELET COUNT 320 x10e3/uL (140-360); RED BLOOD COUNT 4.32 x10e6/uL (3.6-5.1); RED CELL DISTRIBUTION WIDTH 12.7 % (11.7-14.4)
[2019-04-29 12:34] LABS: INR 4.54
[2019-04-29 13:14] LABS: PROTHROMBIN TIME 43.9 seconds (11.9-14.5)
== END ==
LOC: LAB 11:48
PROVIDERS: ATTEND Family Medicine
DX: Z79.01 Long term (current) use of anticoagulants (principal)
CPT/HCPCS: 36415; 85025; 85610

== ENCOUNTER → 2019-05-01 | Outpatient (CLI) | payer MEDICARE, OTHER ==
[2019-05-01 09:58] LABS: INR 2.47; PROTHROMBIN TIME 27.5 seconds (11.9-14.5)
== END ==
LOC: LAB 08:58
PROVIDERS: ATTEND Family Medicine
DX: Z79.01 Long term (current) use of anticoagulants (principal)
CPT/HCPCS: 36415; 85610

== ENCOUNTER → 2019-05-04 | Outpatient (CLI) | payer MEDICARE, OTHER ==
[2019-05-04 16:08] LABS: INR 2.59; PROTHROMBIN TIME 28.5 seconds (11.9-14.5)
== END ==
LOC: LAB 15:19
PROVIDERS: ATTEND Family Medicine
DX: Z79.01 Long term (current) use of anticoagulants (principal)
CPT/HCPCS: 36415; 85610

== ENCOUNTER → 2019-05-08 | Outpatient (CLI) | payer MEDICARE, OTHER ==
[2019-05-08 10:39] LABS: INR 3.46; PROTHROMBIN TIME 35.6 seconds (11.9-14.5)
== END ==
LOC: LAB 10:03
PROVIDERS: ATTEND Family Medicine
DX: Z79.01 Long term (current) use of anticoagulants (principal)
CPT/HCPCS: 36415; 85610

== ENCOUNTER → 2019-05-11 | Outpatient (CLI) | payer MEDICARE, OTHER ==
[2019-05-11 12:03] LABS: INR 1.97; PROTHROMBIN TIME 23.1 seconds (11.9-14.5)
== END ==
LOC: RAD 11:20
PROVIDERS: ATTEND Family Medicine
DX: Z79.01 Long term (current) use of anticoagulants (principal)
CPT/HCPCS: 36415; 85610

== ENCOUNTER → 2019-05-18 | Outpatient (CLI) | payer MEDICARE, OTHER ==
[2019-05-18 10:32] LABS: INR 3.41; PROTHROMBIN TIME 35.2 seconds (11.9-14.5)
== END ==
LOC: LAB 09:17
PROVIDERS: ATTEND Family Medicine
DX: Z79.01 Long term (current) use of anticoagulants (principal)
CPT/HCPCS: 36415; 85610

== ENCOUNTER → 2019-05-22 | Outpatient (CLI) | payer MEDICARE, OTHER ==
[2019-05-22 10:55] LABS: INR 2.31; PROTHROMBIN TIME 26.1 seconds (11.9-14.5)
== END ==
LOC: LAB 10:30
PROVIDERS: ATTEND Family Medicine
DX: Z79.01 Long term (current) use of anticoagulants (principal)
CPT/HCPCS: 36415; 85610

== ENCOUNTER → 2019-06-01 | Outpatient (CLI) | payer MEDICARE, OTHER ==
[2019-06-01 10:47] LABS: INR 3.51
== END ==
LOC: LAB 09:42
PROVIDERS: ATTEND Family Medicine
DX: Z79.01 Long term (current) use of anticoagulants (principal)
CPT/HCPCS: 36415; 85610

== ENCOUNTER → 2019-06-08 | Outpatient (CLI) | payer MEDICARE, OTHER ==
[2019-06-08 16:29] LABS: INR 1.94; PROTHROMBIN TIME 22.8 seconds (11.9-14.5)
== END ==
LOC: LAB 15:57
PROVIDERS: ATTEND Family Medicine
DX: Z79.01 Long term (current) use of anticoagulants (principal)
CPT/HCPCS: 36415; 85610

== ENCOUNTER → 2019-06-16 | Outpatient (CLI) | payer MEDICARE, OTHER ==
[2019-06-16 11:33] LABS: INR 2.06; PROTHROMBIN TIME 23.9 seconds (11.9-14.5)
== END ==
LOC: LAB 11:05
PROVIDERS: ATTEND Family Medicine
DX: Z79.01 Long term (current) use of anticoagulants (principal)
CPT/HCPCS: 36415; 85610

== ENCOUNTER → 2019-06-25 | Outpatient (CLI) | payer MEDICARE, OTHER ==
--- NOTE | 2019-06-25 11:53 | Diagnostic Imaging Report ---
EXAMINATION: SPINE CERVICAL AP LAT FLEX EXT INDICATION: Cervical disc herniation COMPARISON: Cervical spinal radiograph of 02/16/2019 FINDINGS: AP, lateral, flexion and extension views of the cervical spine were obtained. Again seen are postoperative findings of anterior cervical discectomy and fusion at C3-7. Alignment remains anatomic and is unchanged on flexion and extension views. Fusion hardware is intact with no evidence of periprosthetic lucency to suggest loosening. The prevertebral soft tissues are normal in thickness. No acute fracture. The minimally visualized portions of the lung apices are clear. IMPRESSION: Unchanged alignment status post anterior cervical discectomy and fusion at C3-7. Signed by: Luis Miguel Moran MD on 06/25/2019 11:50 AM
== END ==
LOC: RAD 11:01
PROVIDERS: ATTEND Neurological Surgery
DX: M50.20 Other cervical disc displacement, unspecified cervical region (principal); M43.22 Fusion of spine, cervical region
CPT/HCPCS: 72050

== ENCOUNTER → 2019-06-29 | Outpatient (CLI) | payer MEDICARE, OTHER ==
[2019-06-29 12:58] LABS: INR 2.32; PROTHROMBIN TIME 26.2 seconds (11.9-14.5)
== END ==
LOC: RAD 12:17
PROVIDERS: ATTEND Family Medicine
DX: Z79.01 Long term (current) use of anticoagulants (principal)
CPT/HCPCS: 36415; 85610

== ENCOUNTER → 2019-07-14 | Outpatient (CLI) | payer MEDICARE, OTHER ==
[2019-07-14 11:51] LABS: INR 2.1; PROTHROMBIN TIME 24.2 seconds (11.9-14.5)
== END ==
LOC: RAD 11:27
PROVIDERS: ATTEND Family Medicine
DX: Z79.01 Long term (current) use of anticoagulants (principal)
CPT/HCPCS: 36415; 85610

== ENCOUNTER → 2019-07-28 | Outpatient (CLI) | payer MEDICARE, OTHER ==
[2019-07-28 10:53] LABS: INR 1.68; PROTHROMBIN TIME 20.4 seconds (11.9-14.5)
== END ==
LOC: LAB 10:28
PROVIDERS: ATTEND Family Medicine
DX: Z79.01 Long term (current) use of anticoagulants (principal)
CPT/HCPCS: 36415; 85610

== ENCOUNTER → 2019-08-05 | Outpatient (CLI) | payer MEDICARE, OTHER ==
[2019-08-05 14:19] LABS: INR 1.85
== END ==
LOC: LAB 13:35
PROVIDERS: ATTEND Family Medicine
DX: Z79.01 Long term (current) use of anticoagulants (principal)
CPT/HCPCS: 36415; 85610

== ENCOUNTER 2019-08-13 19:43 | Emergency (ER) | payer MEDICARE, OTHER ==
[~2019-08-13] VITALS: Ht 157.5 cm; Wt 70.8 kg
[2019-08-13 20:34] LABS: INR 2.47; PROTHROMBIN TIME 27.5 seconds (11.9-14.5)
[2019-08-13 20:35] LABS: PARTIAL THROMBOPLASTIN TIME 41.3 seconds (23.8-35.5)
[2019-08-13 22:37] VITALS: BP 133/76
== END 2019-08-13 22:46 | disposition home or self-care (01) ==
LOC: ER 19:43
DX: M79.662 Pain in left lower leg (principal); F41.9 Anxiety disorder, unspecified; K76.9 Liver disease, unspecified; A48.1 Legionnaires' disease; Z86.718 Personal history of other venous thrombosis and embolism; Z85.828 Personal history of other malignant neoplasm of skin
CPT/HCPCS: 36415; 85610; 85730; 93971; 99283

== ENCOUNTER → 2019-08-27 | Outpatient (CLI) | payer MEDICARE, OTHER ==
[2019-08-27 11:09] LABS: BASOPHILS % 0.5 % (0.0-1.0); EOSINOPHILS # (AUTO) 0.2 (0.0-0.4); EOSINOPHILS % 3.7 % (0.0-6.0); HEMOGLOBIN 13.2 g/dL (12.0-16.0); LYMPHOCYTES # (AUTO) 2.8 (1.0-3.2); LYMPHOCYTES % 42.8 % (18.0-39.1); MEAN CORPUSCULAR HEMOGLOBIN 29.9 pg (28-32); MEAN CORPUSCULAR VOLUME 90.7 fL (81-99); MONOCYTES # (AUTO) 0.5 (0.2-0.8); MONOCYTES % 7.8 % (4.4-11.3); PLATELET COUNT 302 x10e3/uL (140-360); RED BLOOD COUNT 4.41 x10e6/uL (3.6-5.1); RED CELL DISTRIBUTION WIDTH 13.2 % (11.7-14.4)
[2019-08-27 11:25] LABS: ALANINE AMINOTRANSFERASE 28 IU/L (0-55); ALBUMIN/GLOBULIN RATIO 1.1 (0.8-2.0); ALKALINE PHOSPHATASE 61 IU/L (40-150); ANION GAP 13.8 mmol/L (8-16); BLOOD UREA NITROGEN 14 mg/dL (7-26); BUN/CREATININE RATIO 16 (6-25); CALCIUM 9.4 mg/dL (8.4-10.2); CARBON DIOXIDE 28 mmol/L (22-29); CHLORIDE 105 mmol/L (98-107); CHOL/HDL RATIO 4.4 (3.0-3.6); CHOLESTEROL 249 MD/DL (0-199); CREATININE, SERUM 0.85 mg/dL (0.57-1.11); EST GLOMERULAR FILTRATION RATE > 60 ML/MIN (60-); GLUCOSE 97 mg/dL (74-118); HDL CHOLESTEROL 57 MG/DL (40-60); LDL CHOLESTEROL 166 MG/DL (60-130); POTASSIUM 3.8 mmol/L (3.5-5.1); SODIUM 143 mmol/L (136-145); TRIGLYCERIDES 130 MG/DL (0-149)
[2019-08-27 11:31] LABS: INR 2.89
== END ==
LOC: RAD 10:33
PROVIDERS: ATTEND Family Medicine
DX: E11.9 Type 2 diabetes mellitus without complications (principal); E55.9 Vitamin D deficiency, unspecified; Z79.01 Long term (current) use of anticoagulants
CPT/HCPCS: 36415; 80053; 80061; 82652; 83036; 85025; 85610

== ENCOUNTER → 2019-09-02 | Outpatient (CLI) | payer MEDICARE, OTHER ==
[2019-09-02 10:32] LABS: INR 2.98; PROTHROMBIN TIME 31.7 seconds (11.9-14.5)
== END ==
LOC: LAB 10:11
PROVIDERS: ATTEND Family Medicine
DX: Z79.01 Long term (current) use of anticoagulants (principal)
CPT/HCPCS: 36415; 85610

== ENCOUNTER → 2019-09-08 | Outpatient (CLI) | payer MEDICARE, OTHER ==
[2019-09-08 08:54] LABS: INR 2.64; PROTHROMBIN TIME 28.9 seconds (11.9-14.5)
== END ==
LOC: LAB 08:14
PROVIDERS: ATTEND Family Medicine
DX: Z79.01 Long term (current) use of anticoagulants (principal)
CPT/HCPCS: 36415; 85610

== ENCOUNTER → 2019-09-23 | Outpatient (CLI) | payer MEDICARE, OTHER ==
[2019-09-23 16:07] LABS: INR 3.45; PROTHROMBIN TIME 35.5 seconds (11.9-14.5)
== END ==
LOC: LAB 15:23
PROVIDERS: ATTEND Family Medicine
DX: Z79.01 Long term (current) use of anticoagulants (principal)
CPT/HCPCS: 36415; 85610

== ENCOUNTER 2023-03-02 14:18 | Emergency (ER) | payer MEDICARE, OTHER ==
[~2023-03-02] VITALS: Ht 157.5 cm; Wt 78.5 kg
[2023-03-02 14:33] VITALS: O2SAT 96
[2023-03-02] MEDS ORDERED: HYDROCODONE/APAP 5MG-325MG TAB ONE (14:58)
[2023-03-02] MEDS ORDERED: HYDROCODONE/APAP 5MG-325MG TAB PO ONE (15:30)
== END 2023-03-02 16:36 | disposition home or self-care (01) ==
LOC: FSED 14:33
DX: M79.672 Pain in left foot (principal); M25.572 Pain in left ankle and joints of left foot; X50.1XXA Overexertion from prolonged static or awkward postures, initial encounter; Y93.01 Activity, walking, marching and hiking; I10 Essential (primary) hypertension; E11.9 Type 2 diabetes mellitus without complications; J44.9 Chronic obstructive pulmonary disease, unspecified; J45.909 Unspecified asthma, uncomplicated; M06.9 Rheumatoid arthritis, unspecified; Z85.828 Personal history of other malignant neoplasm of skin; Z86.718 Personal history of other venous thrombosis and embolism
CPT/HCPCS: 99283

== ENCOUNTER 2025-01-05 11:29 | Emergency (ER) | payer MEDICARE, OTHER ==
[~2025-01-05] VITALS: Ht 157.5 cm; Wt 78.5 kg
[2025-01-05 11:55] VITALS: PULSE 74; RESP 18; TEMP 99.1; O2SAT 98
[2025-01-05 13:46] LABS: CORONAVIRUS COVID-19 AG NEGATIVE (NEGATIVE); INFLUENZA A AG NEGATIVE (NEGATIVE); INFLUENZA B AG NEGATIVE (NEGATIVE)
[2025-01-05] MEDS ORDERED: DOXYCYCLINE HY100 MG PO (14:31)
[2025-01-05] MEDS ORDERED: VENTOLIN HFA18 GM INH (14:48)
== END 2025-01-05 14:48 | disposition home or self-care (01) ==
LOC: ER 12:04
DX: R05.9 Cough, unspecified (principal); B34.9 Viral infection, unspecified; J90 Pleural effusion, not elsewhere classified; R51.9 Headache, unspecified; R53.83 Other fatigue; Z11.52 Encounter for screening for COVID-19
CPT/HCPCS: 71045; 99283

== ENCOUNTER 2025-01-09 12:08 | Emergency (ER) | payer MEDICARE, OTHER ==
[~2025-01-09] VITALS: Ht 157.5 cm; Wt 78.5 kg
[~2025-01-09 12:08] MED LIST changes: +VENTOLIN HFA18 GM INH
[2025-01-09 13:05] LABS: BASOPHILS % 0.4 % (0.0-1.0); EOSINOPHILS # (AUTO) 0.1 (0.0-0.4); HEMATOCRIT 37.1 % (34.2-44.1); HEMOGLOBIN 12.4 g/dL (12.0-16.0); LYMPHOCYTES # (AUTO) 1.9 (1.0-3.2); LYMPHOCYTES % 41.4 % (18.0-39.1); MEAN CORPUSCULAR HEMOGLOBIN 29.1 pg (28-32); MEAN CORPUSCULAR HGB CONC 33.4 g/dL (31-35); MEAN CORPUSCULAR VOLUME 87.1 fL (81-99); MONOCYTES # (AUTO) 0.2 (0.2-0.8); MONOCYTES % 4.9 % (4.4-11.3); NEUTROPHILS # (AUTO) 2.3 (2.1-6.9); NEUTROPHILS % 51.1 % (38.7-80.0); PLATELET COUNT 196 x10e3/uL (140-360); RED BLOOD COUNT 4.26 x10e6/uL (3.6-5.1); RED CELL DISTRIBUTION WIDTH 13.5 % (11.7-14.4); WHITE BLOOD COUNT 4.52 x10e3/uL (4.8-10.8)
[2025-01-09 13:28] LABS: ALBUMIN 3.7 g/dL (3.5-5.0); ANION GAP 16.1 mmol/L (8-16); BILIRUBIN,TOTAL 0.6 mg/dL (0.2-1.2); CALCIUM 9.1 mg/dL (8.4-10.2); CREATININE, SERUM 0.98 mg/dL (0.57-1.11); POTASSIUM 4.1 mmol/L (3.5-5.1); TOTAL PROTEIN 7.5 g/dL (6.5-8.1)
[2025-01-09 14:26] LABS: CORONAVIRUS COVID-19 AG NEGATIVE (NEGATIVE); INFLUENZA A AG NEGATIVE (NEGATIVE); INFLUENZA B AG NEGATIVE (NEGATIVE)
[2025-01-09 15:19] VITALS: PULSE 74; RESP 18; TEMP 97.6; O2SAT 99
== END 2025-01-09 15:24 | disposition home or self-care (01) ==
LOC: ER 12:11
DX: R06.02 Shortness of breath (principal); R05.9 Cough, unspecified; J44.9 Chronic obstructive pulmonary disease, unspecified; I10 Essential (primary) hypertension; E11.65 Type 2 diabetes mellitus with hyperglycemia; J45.909 Unspecified asthma, uncomplicated; K76.9 Liver disease, unspecified; M06.9 Rheumatoid arthritis, unspecified; A48.1 Legionnaires' disease; F41.9 Anxiety disorder, unspecified; M54.9 Dorsalgia, unspecified; G89.29 Other chronic pain; Z11.52 Encounter for screening for COVID-19; Z85.828 Personal history of other malignant neoplasm of skin; Z87.442 Personal history of urinary calculi
CPT/HCPCS: 36415; 71250; 80053; 84484; 85025; 99283